=== PATIENT | female | born 1950 | race Caucasian/White ===

== ENCOUNTER 2017-08-16 07:37 | Day surgery (SDC) | payer OTHER, BC ==
[2017-08-10 12:27] VITALS: BMI 43.2
[2017-08-16] MEDS ORDERED: PROPOFOL 20 ML ONE (08:13)
[2017-08-16] MEDS ORDERED: MIDAZOLAM HCL 2 MG/2 ML SINGLE DOSE VIAL ONE (08:13)
[2017-08-16] MEDS ORDERED: ONDANSETRON 4 MG/2 ML VIAL IVPUSH PRN (09:15)
[2017-08-16] MEDS ORDERED: LACTATED RINGERS SOLUTION 1,000 ML IV SCH (09:15)
[2017-08-16] MEDS ORDERED: oxyCODONE HCL 5 MG TABLET PO PRN (09:15)
[2017-08-16 10:13] VITALS: TEMP 97.8
[2017-08-16] MEDS ORDERED: oxyCODONE HCL 5 MG TABLET ONE (10:17)
[2017-08-16 10:31] VITALS: PULSE 82
[2017-08-16 10:55] VITALS: BP 120/80
--- NOTE | 2017-08-19 10:46 | OP ---
DATE OF OPERATION: 08/16/2017 PREOPERATIVE DIAGNOSIS: Left carpal tunnel syndrome. POSTOPERATIVE DIAGNOSIS: Left carpal tunnel syndrome. OPERATIVE PROCEDURE: Left carpal tunnel release. ANESTHESIA: Local with sedation. COMPLICATIONS: None. ESTIMATED BLOOD LOSS: Minimal. INDICATIONS FOR PROCEDURE: The patient is a female with the above findings indicated for operative treatment. Risks, benefits, and alternatives were discussed with the patient at length. Proper informed consent was obtained. DESCRIPTION OF PROCEDURE: After proper identification of patient and correct operative site, the patient was brought to the operating room and placed supine on the operative table, prominences well padded. General anesthesia given by the anesthesiologist. Local anesthesia was given with 2% lidocaine. The left upper extremity was prepped and draped in the usual sterile fashion. A well-padded tourniquet was placed with a sterile prep. Esmarch bandage used to exsanguinate the right upper extremity. Tourniquet was inflated to 250 mmHg. Longitudinal incision was made over the carpal tunnel. Incision was taken sharply through the skin with sharp and blunt dissection through the subcutaneous tissues. Palmar fascia was divided longitudinally. Transcarpal ligament was divided longitudinally along with the distal 4 cm of antebrachial fascia under direct visualization with loupe magnification. This provided complete release of the median nerve at the wrist. The wound was irrigated with saline and repaired with a 5-0 nylon suture. Sterile dressings were applied. The patient was reversed from anesthesia and brought to the ambulatory recovery room in stable condition. She tolerated the procedure well. Pérez [id number]
== END 2017-08-16 11:00 | disposition home or self-care (01) ==
LOC: FASU 07:37
PROVIDERS: ATTEND Orthopaedic Surgery Hand Surgery
PROC: 01N50ZZ Release Median Nerve, Open Approach (ICD-10-PCS; principal; 2017-08-16 08:52)
DX: G56.02 Carpal tunnel syndrome, left upper limb (principal)
CPT/HCPCS: 94760

== ENCOUNTER 2017-11-30 21:36 | Inpatient (IN) | payer OTHER, BC ==
[2017-11-30 21:47] VITALS: BMI 43.2
--- NOTE | 2017-11-30 22:22 | PDOC ---
History of Present Illness - General Chief Complaint: Pain, Acute Stated Complaint: ABD PAIN Time Seen by Provider: 11/30/17 22:01 History Source: Patient Exam Limitations: No Limitations - History of Present Illness Initial Comments: This is a morbidly obese 67-year-old female comes in complaining of abdominal pain. Patient said she had multiple episodes of diarrhea yesterday and however today she's not had any diarrhea. Patient said she did not have a bowel movement today. Patient's complaining of lower abdominal pain. Patient denies any fevers chills, chest pain, shortness of breath or any other complaints. Patient has a history of an umbilical hernia that was repaired in the past. PAST MEDICAL HISTORY: no significant history PAST SURGICAL HISTORY: no significant history FAMILY HISTORY: no pertinant history SOCIAL HISTORY: Pt lives with family and is employed. MEDICATIONS: reviewed ALLERGIES: As per nursing notes Review of Systems General: fevers or chills, no weakness, no weight loss HEENT: No change in vision. No sore throat,. No ear pain CardioVascular: No chest pain or shortness of breath Respiratory:No cough, or wheezing. Gastrointestinal: no nausea, vomitting, +diarrhea or constipation, No rectal bleeding Genitourinary: No dysuria, hematuria, or frequency Musculoskeletal: No joint or muscle pain or swelling Neurologic: No headache, vertigo, dizziness or loss of consciousness Psychiatric: nor depression Skin: No rashes or easy bruising Endocrine: no increased thirst or abnormal weight change Allergic: no skin or latex allergy All other systems reviewed and normal Exam: General: Obese well-developed individual, no acute distress HEENT: Throat: Normal, tonsils normal, no erythema or exudate Neck: Supple, no meningeal signs, no lymphadenopathy Eyes::Pupils equal reactive and round, extraocular motion intact Chest: Nontender to palpation Cardiac: S1-S2 normal, regular rate and rhythm, no murmurs rubs or gallops Respiratory: Lungs clear to auscultation bilateral Abdomen: Soft, nondistended, increased bowel sounds, there is tenderness to palpation in the periumbilical area with a questionable palpable nonreducible hernia. Otherwise her abdomen is soft with normal bowel sounds and also some tenderness across lower abdomen and there is no guarding or rebound. Extremities: Warm, dry, no cyanosis, clubbing, or edema Skin: No rashes Neuro: Alert and oriented x3, CN II - XII intact, nonfocal exam with normal strength, normal sensation, normal reflexes, normal gait, Psych: Normal mood and affect Medical decision making: This is a 67-year-old obese female who comes in complaining of abdominal pain. Patient had tenderness across her lower abdomen on exam. Patient has history significant for surgery in the past and a hernia in the past. Patient did have some tenderness on palpation in the umbilical area There was nothing suggestive of peritonitis or perforation on my exam Will obtain workup including CBC, comp, lipase, CAT scan, EKG. We will medicate with some morphine and give IV fluids We will reassess and review workup once it is completely 00:40 Reassessment. Patient is feeling better Patient has normal white count Chemistries show Patient urine does show that she has a urinary tract infection will start her on antibiotics for the urinary tract infection CAT scan is still spinning 12/01/17 00:44 Chemistry shows some dehydration as well elevation of the glucose otherwise unremarkable 12/01/17 01:00 Patient still complaining of moderate amount of discomfort in spite of the morphine that she was given. Patient CAT scan shows that there is a incarcerated loop of bowel in a ventral periumbilical hernia. There is some questionable pneumatosis of the lumen versus small air bubbles along the wall of the lumen. Surgery will be consulted regarding whether patient needs emergent surgery tonight or can wait till tomorrow Patient's urine shows a urinary tract infection and I will also cover her for GI pathogens. Patient given Zosyn 4.5 g. Discussed admission with the hospitalist service as well as with surgeon Dr. Harrison. . Signout given to the admitting hospitalist, who accepts the patient. Discussed plan with the patient family at bedside, Patient and family aware of the plan and agree. Patient is clinically unchanged and stable. Past History - Past Medical History Allergies/Adverse Reactions: Allergies Allergy/AdvReac Type Severity Reaction Status Date / Time cephalexin monohydrate Allergy Severe Difficulty Verified 08/10/17 14:21 [From Keflex] Breathing iodine Allergy Severe Hives Verified 08/10/17 14:21 adhesive tape Allergy Mild Verified 08/10/17 14:21 codeine [Codeine] Allergy Mild Itching Verified 08/10/17 14:21 Home Medications: Ambulatory Orders Aspirin [Aspirin EC] 81 mg PO DAILY 08/10/17 Anemia: Yes (NO MEDS) Asthma: No Cancer: No Cardiac Disorders: No CVA: No COPD: Yes CHF: No Dementia: No Diabetes: Yes GI Disorders: Yes (LAP BAND COMPLICATIONS) Disorders: Yes HTN: No Hypercholesterolemia: (on lipitor because of metformin) Liver Disease: No Seizures: No Thyroid Disease: Yes (GRAVES) Other medical history: MORBIDLY OBESE - Surgical History Abdominal Surgery: Yes (NUMEROUS A RESULT OF LAP BAND COMPLICATIONS) Appendectomy: No Cardiac Surgery: No Cholecystectomy: Yes GI Surgery: Yes (DUODENAL ULCER SX) Lung Surgery: No Neurologic Surgery: No Orthopedic Surgery: Yes (LT KNEE ARTHROSCOPY x2, LT KNEE MENISCAL REPAIR) - Suicide/Smoking/Psychosocial Hx Smoking Status: Yes Smoking History: Unknown if ever smoked Have you smoked in the past 12 months: No Number of Cigarettes Smoked Daily: 10 If you are a former smoker, when did you quit?: 2005 Hx Alcohol Use: No Drug/Substance Use Hx: No Substance Use Type: None Hx Substance Use Treatment: No *Physical Exam - Vital Signs Last Vital Signs Temp Pulse Resp BP Pulse Ox 98 F 90 18 151/87 97 11/30/17 21:43 11/30/17 21:43 11/30/17 21:43 11/30/17 21:43 11/30/17 21:43 ED Treatment Course - LABORATORY CBC & Chemistry Diagram: 11/30/17 23:00 11/30/17 23:07 *DC/Admit/Observation/Transfer Diagnosis at time of Disposition: Incarcerated hernia of abdominal cavity - Discharge Dispostion Condition at time of disposition: Stable Admit: Yes - Referrals Referrals: Bobo Banda MD [Primary Care Provider] - - Patient Instructions - Post Discharge Activity
[2017-11-30 23:06] LABS: PH,URINE 5.5 (4.5-8); URINE APPEARANCE Clear; URINE BILIRUBIN 1+ (NEGATIVE); URINE GLUCOSE (UA) Negative (NEGATIVE); URINE KETONE Trace (NEGATIVE); URINE NITRITE Negative (NEGATIVE); URINE UROBILINOGEN 0.2 (0.2-1.0)
[2017-11-30 23:07] LABS: URINE BLOOD 3+ (NEGATIVE); URINE COLOR YELLOW; URINE PROTEIN 2+ (NEGATIVE)
[2017-11-30 23:14] LABS: URINE BACTERIA MODERATE /hpf (NEGATIVE); URINE WBC >100 (0-5)
[2017-11-30] MEDS ORDERED: morphine CARPU-JECT 4 MG/1 ML DISP.SYRIN IVPUSH ONE (23:14)
[2017-11-30] MEDS ORDERED: SODIUM CHLORIDE 1,000 ML IV ONE (23:16)
[2017-11-30 23:17] LABS: BASO % 0.6 % (0-2.0); HEMOGLOBIN 12.4 GM/dl (10.7-15.3); LYMPH % 14.1 % (8-40); MCH 25.2 pg (25.7-33.7); MCHC 31.7 g/dl (32.0-36.0); MEAN CELL VOLUME 79.4 fl (80-96); MEAN PLT VOLUME 8.7 fl (7.5-11.1); MONO % 7.7 % (3.8-10.2); NEUT % 75.6 % (42.8-82.8); PLATELET COUNT 224 K/MM3 (134-434); RBC 4.91 M/mm3 (3.60-5.2); WHITE BLOOD COUNT 9.5 K/mm3 (4.0-10.8)
[2017-11-30] MEDS ORDERED: morphine SULFATE 4 MG/ML VIAL ONE (23:21)
[2017-11-30 23:26] LABS: ALBUMIN 3.8 g/dl (3.5-5.0); ALK PHOS 85 U/L (32-92); ANION GAP 8 (8-16); BILIRUBIN,TOTAL 0.5 mg/dl (0.2-1.0); BLOOD UREA NITROGEN 20 mg/dl (7-18); CHLORIDE 105 mmol/L (98-107); CO2 25 mmol/L (22-28); CREATININE 0.8 mg/dl (0.6-1.3); GLUCOSE,RANDOM 121 mg/dl (74-106); LIPASE 27 U/L (22-51); POTASSIUM 3.8 mmol/L (3.5-5.1); SGOT/AST 16 U/L (10-42); SGPT/ALT 15 U/L (10-40); SODIUM 138 mmol/L (136-145)
[2017-12-01] MEDS ORDERED: PIPERACILLIN/TAZOB 4.5 GM/100 ML PREMIX BAG IVPB ONE ×2 (01:19→11:15)
[2017-12-01] MEDS ORDERED: PIPERACILLIN/TAZOBACTAM 4.5 GM VIAL IVPB ONE (01:19)
[2017-12-01] MEDS ORDERED: morphine CARPU-JECT 4 MG/1 ML DISP.SYRIN IVPUSH ONE ×2 (01:22→08:42)
[2017-12-01] MEDS ORDERED: morphine SULFATE 4 MG/ML VIAL ONE (01:23)
[2017-12-01] MEDS ORDERED: HYDROmorphone HCL CARPU-JECT 1 MG/1 ML DISP.SYRIN IVPUSH ONE (02:31)
[2017-12-01] MEDS ORDERED: HYDROmorphone HCL CARPU-JECT 2 MG/1 ML DISP.SYRIN ONE ×2 (02:36→07:02)
[2017-12-01] MEDS ORDERED: SODIUM CHLORIDE 1,000 ML IV SCH (02:45)
[2017-12-01] MEDS: NITROFURANTOIN MACROCRYSTAL 50 MG CAPSULE (FP) PO SCH ×2 (03:02→03:34)
[2017-12-01] MEDS: HYDROmorphone HCL CARPU-JECT 2 MG/1 ML DISP.SYRIN IVPUSH PRN ×2 (07:05→17:49)
[2017-12-01] MEDS ORDERED: TETRACAINE/BENZOCAINE/BUTAMBEN 20 GM SPR TP ONE (07:14)
[2017-12-01] MEDS ORDERED: MIDAZOLAM HCL 2 MG/2 ML SINGLE DOSE VIAL IVPUSH ONE (07:14)
[2017-12-01] MEDS ORDERED: LIDOCAINE VISCOUS 2% ORAL/TOP 20 ML UNIT-DOSE CUP MM ONE (07:14)
[2017-12-01] MEDS ORDERED: LIDOCAINE VISCOUS 2% ORAL/TOP 20 ML UNIT-DOSE CUP ONE (07:30)
[2017-12-01] MEDS ORDERED: HURRICAINE SP EXT TUBE 1 EA EACH TP ONE (07:40)
[2017-12-01 07:44] LABS: ANION GAP 5 (8-16); BLOOD UREA NITROGEN 18 mg/dl (7-18); CALCIUM 8.2 mg/dl (8.4-10.2); CHLORIDE 107 mmol/L (98-107); CO2 25 mmol/L (22-28); CREATININE 0.7 mg/dl (0.6-1.3); GLUCOSE,RANDOM 81 mg/dl (74-106); POTASSIUM 3.3 mmol/L (3.5-5.1); SODIUM 137 mmol/L (136-145)
[2017-12-01 07:54] LABS: ACTIVATED PTT 34.5 SECONDS (24.0-38.9)
[2017-12-01 07:58] LABS: INR 1.22 (0.82-1.09); PROTHROMBIN TIME (PATIENT) 13.6 SEC (10.2-13.0)
[2017-12-01 08:02] LABS: HEMATOCRIT 36.3 % (32.4-45.2); HEMOGLOBIN 11.2 GM/dl (10.7-15.3); MCH 24.5 pg (25.7-33.7); MCHC 30.9 g/dl (32.0-36.0); MEAN CELL VOLUME 79.4 fl (80-96); MEAN PLT VOLUME 9.4 fl (7.5-11.1); PLATELET COUNT 195 K/MM3 (134-434); RBC 4.57 M/mm3 (3.60-5.2); RDW 15.4 % (11.6-15.6); WHITE BLOOD COUNT 7.9 K/mm3 (4.0-10.8)
--- NOTE | 2017-12-01 08:06 | HP ---
CHIEF COMPLAINT: abdominal pain PCP: Dr Banda HISTORY OF PRESENT ILLNESS: Patient is a 67 y/o obese female with a past medical history of, anemia DM, hypertension, lap band removed 2011 with hernia repai (mesh), multiple abd surgeries requiring vac placement, and hyperlipidemia. Patient reports ongoing lower quadrant abdominal pain and diarrhea for 24 hours. Patient denies any fever. ER course was notable for: (1) ct of abd/pelvis: positive for a loop bowel entrapped in a ventral periumbilical hernia (2)wbc 9.5 (3) Dr Harrison general surgeon consulted by ED physician Recent Travel: none PAST MEDICAL HISTORY: see hpi PAST SURGICAL HISTORY: see hpi Social History: resides at home alone Smoking: none Alcohol:none Drugs: none Family History: non contributory to this admission Allergies cephalexin monohydrate [From Keflex] Allergy (Severe, Verified 08/10/17 14:21) Difficulty Breathing and hives iodine Allergy (Severe, Verified 08/10/17 14:21) Hives adhesive tape Allergy (Mild, Verified 08/10/17 14:21) blisters codeine [Codeine] Allergy (Mild, Verified 08/10/17 14:21) Itching and confusion HOME MEDICATIONS: Home Medications Medication Instructions Recorded Aspirin [Aspirin EC] 81 mg PO DAILY 08/10/17 REVIEW OF SYSTEMS CONSTITUTIONAL: Present: generalized weakness, malaise, loss of appetite Absent: fever, chills, diaphoresis, weight change HEENT: Absent: rhinorrhea, nasal congestion, throat pain, throat swelling, difficulty swallowing, mouth swelling, ear pain, eye pain, visual changes CARDIOVASCULAR: Absent: chest pain, syncope, palpitations, irregular heart rate, lightheadedness , peripheral edema RESPIRATORY: Absent: cough, shortness of breath, dyspnea with exertion, orthopnea, wheezing, stridor, hemoptysis GASTROINTESTINAL: Absent: abdominal pain, abdominal distension, nausea, vomiting, diarrhea, constipation, melena, hematochezia GENITOURINARY: Absent: dysuria, frequency, urgency, hesitancy, hematuria, flank pain, genital pain MUSCULOSKELETAL: Absent: myalgia, arthralgia, joint swelling, back pain, neck pain SKIN: Absent: rash, itching, pallor HEMATOLOGIC/IMMUNOLOGIC: Absent: easy bleeding, easy bruising, lymphadenopathy, frequent infections ENDOCRINE: Absent: unexplained weight gain, unexplained weight loss, heat intolerance, cold intolerance NEUROLOGIC: Absent: headache, focal weakness or paresthesias, dizziness, unsteady gait, seizure, mental status changes, bladder or bowel incontinence PSYCHIATRIC: Absent: anxiety, depression, suicidal or homicidal ideation, hallucinations. PHYSICAL EXAMINATION Vital Signs - 24 hr 11/30/17 12/01/17 12/01/17 21:43 02:34 06:38 Temperature 98 F 97.6 F Pulse Rate 90 Pulse Rate [ 76 86 Left Radial] Respiratory 18 18 19 Rate Blood Pressure 151/87 Blood Pressure 142/83 123/69 [Right] O2 Sat by Pulse 97 95 95 Oximetry (%) GENERAL: Awake, alert, and fully oriented, in no acute distress. HEAD: Normal with no signs of trauma. NGT scant bilious drainage EYES: Pupils equal, round and reactive to light, extraocular movements intact, sclera anicteric, conjunctiva clear. No lid lag. EARS, NOSE, THROAT: Ears normal, nares patent, oropharynx clear without exudates. Moist mucous membranes. NECK: Normal range of motion, supple without lymphadenopathy, JVD, or masses. LUNGS: Breath sounds equal, clear to auscultation bilaterally. No wheezes, and no crackles. No accessory muscle use. HEART: Regular rate and rhythm, normal S1 and S2 without murmur, rub or gallop. ABDOMEN: Soft, midline healed surgical scar, tender non reducible central hernia , diffuse abdominal tenderness, not distended, normoactive bowel sounds, no guarding, no rebound, no masses. No hepatomegaly or splenomegaly. MUSCULOSKELETAL: Normal range of motion at all joints. No bony deformities or tenderness. No CVA tenderness. UPPER EXTREMITIES: 2+ pulses, warm, well-perfused. No cyanosis. No clubbing. No peripheral edema. LOWER EXTREMITIES: 2+ pulses, warm, well-perfused. No calf tenderness. No peripheral edema. NEUROLOGICAL: Cranial nerves II-XII intact. Normal speech. Normal gait. PSYCHIATRIC: Cooperative. Good eye contact. Appropriate mood and affect. SKIN: Warm, dry, normal turgor, no rashes or lesions noted, normal capillary refill. Laboratory Results - last 24 hr 11/30/17 11/30/17 11/30/17 22:50 23:00 23:00 WBC 9.5 RBC 4.91 Hgb 12.4 Hct 39.0 MCV 79.4 L MCH 25.2 L MCHC 31.7 L RDW 16.0 H Plt Count 224 MPV 8.7 Neutrophils % 75.6 Lymphocytes % 14.1 Monocytes % 7.7 Eosinophils % 2.0 Basophils % 0.6 Sodium Potassium Chloride Carbon Dioxide Anion Gap BUN Creatinine Creat Clearance w eGFR POC Glucometer Random Glucose Calcium Total Bilirubin AST ALT Alkaline Phosphatase Creatine Kinase Troponin I < 0.03 L Total Protein Albumin Lipase Urine Color Yellow Urine Appearance Clear Urine pH 5.5 Ur Specific [place] >= 1.030 H Urine Protein 2+ H Urine Glucose (UA) Negative Urine Ketones Trace Urine Blood 3+ H Urine Nitrite Negative Urine Bilirubin 1+ H Urine Urobilinogen 0.2 Urine RBC 10-20 Urine WBC >100 Urine Bacteria Moderate 11/30/17 11/30/17 12/01/17 23:00 23:07 06:39 WBC RBC Hgb Hct MCV MCH MCHC RDW Plt Count MPV Neutrophils % Lymphocytes % Monocytes % Eosinophils % Basophils % Sodium 138 Potassium 3.8 Chloride 105 Carbon Dioxide 25 Anion Gap 8 BUN 20 H D Creatinine 0.8 Creat Clearance w eGFR > 60 POC Glucometer 98.16349 Random Glucose 121 H Calcium 9.0 Total Bilirubin 0.5 D AST 16 ALT 15 Alkaline Phosphatase 85 Creatine Kinase 29 Troponin I Total Protein 7.0 Albumin 3.8 Lipase 27 Urine Color Urine Appearance Urine pH Ur Specific [place] Urine Protein Urine Glucose (UA) Urine Ketones Urine Blood Urine Nitrite Urine Bilirubin Urine Urobilinogen Urine RBC Urine WBC Urine Bacteria 12/01/17 06:57 WBC RBC Hgb Hct MCV MCH MCHC RDW Plt Count MPV Neutrophils % Lymphocytes % Monocytes % Eosinophils % Basophils % Sodium 137 Potassium 3.3 L Chloride 107 Carbon Dioxide 25 Anion Gap 5 L BUN 18 Creatinine 0.7 Creat Clearance w eGFR POC Glucometer Random Glucose 81 D Calcium 8.2 L Total Bilirubin AST ALT Alkaline Phosphatase Creatine Kinase Troponin I Total Protein Albumin Lipase Urine Color Urine Appearance Urine pH Ur Specific [place] Urine Protein Urine Glucose (UA) Urine Ketones Urine Blood Urine Nitrite Urine Bilirubin Urine Urobilinogen Urine RBC Urine WBC Urine Bacteria ASSESSMENT/PLAN: F/E/N - npo pending OR today,ivf hypokalemia - kci 10meg iv x 1 ppx - hold ac pending or - protonix - scd patient is medially optimized for emergent surgery dispo: pt requires inpatient admission Problem List - Problem (1) Incarcerated ventral hernia Assessment/Plan: - ct of abd reviewed, Dr Harrison consulted by ED physician, plan for OR today - keep NPO, IVF and NGT Code(s): K46.0 - UNSP ABDOMINAL HERNIA WITH OBSTRUCTION, WITHOUT GANGRENE (2) Hypertension Assessment/Plan: - no home medications as per patient, slighty above goal, secondary to pain, strict monitoring Code(s): I10 - ESSENTIAL (PRIMARY) HYPERTENSION (3) Diabetes mellitus Assessment/Plan: - penidng OR today, hold home meds - pending hemoglobin a1c Code(s): E11.9 - TYPE 2 DIABETES MELLITUS WITHOUT COMPLICATIONS (4) Hyperlipidemia Assessment/Plan: - continue statin when patient is cleared for diet Code(s): E78.5 - HYPERLIPIDEMIA, UNSPECIFIED (5) Anemia Assessment/Plan: - hemoglobin 11 at baseline - strict monitoring repeat cbc postoperatively Code(s): D64.9 - ANEMIA, UNSPECIFIED (6) Urinary tract infection Assessment/Plan: - moderate bacterial noted on urine, pending culture, continue zosyn appreciate ID input for abx approval Code(s): N39.0 - URINARY TRACT INFECTION, SITE NOT SPECIFIED Visit type - Emergency Visit Emergency Visit: Yes ED Registration Date: 12/01/17 Care time: The patient presented to the Emergency Department on the above date and was hospitalized for further evaluation of their emergent condition. - New Patient This patient is new to me today: Yes Date on this admission: 12/01/17 - Critical Care Critical Care patient: No
[2017-12-01] MEDS ORDERED: MIDAZOLAM HCL 2 MG/2 ML SINGLE DOSE VIAL ONE ×2 (08:11→10:55)
[2017-12-01] MEDS ORDERED: morphine CARPU-JECT 2 MG/1 ML DISP.SYRIN ONE (08:43)
[2017-12-01] MEDS ORDERED: ONDANSETRON 4 MG/2 ML VIAL IVPUSH ONE (10:08)
[2017-12-01] MEDS ORDERED: SODIUM CHLORIDE 0.9%/KCL 20 MEQ/1,000 ML INFUS.BAG IV SCH ×2 (10:15→18:45)
[2017-12-01] MEDS ORDERED: KCL 10 MEQ IVPB 10 MEQ/100 ML INFUS.BAG IVPB SCH ×2 (10:15→17:30)
[2017-12-01] MEDS ORDERED: fentaNYL CITRATE 250 MCG/5 ML VIAL ONE (10:55)
[2017-12-01] MEDS ORDERED: PROPOFOL 20 ML ONE ×2 (10:55)
[2017-12-01] MEDS ORDERED: ROCURONIUM BROMIDE 50 MG/5 ML VIAL ONE (10:55)
--- NOTE | 2017-12-01 11:04 | PN ---
Progress Note (short form) - Note Progress Note: surgery pt seen and exmamined. full consult dictated. 67f morbidly obese, multiple previous surgeries for lap band and complications, mesh hernia repair, presents with abd pain and a lump at the central portion of her abd. ct shows incarcerated small bowel loop with proximal obstruction/fecalization inferior to previous mesh repair. wbc wnl and no fever. on exam abd is soft with an incarcerated mass below a large scar. no overlying skin changes and minimal tenderness Plan-chronically incarcerated ventral hernia now with partial obstuction. will proceed with urgent repair and may not be able to use permanent mesh due to possible contamination. will cont zosyn started in er.
[2017-12-01] MEDS ORDERED: BUPIVACAINE HCL/PF 0.5% (5MG/ML) 10 ML VIAL ONE (11:11)
[2017-12-01] MEDS ORDERED: ePHEDrine SULFATE 50 MG/1 ML AMPULE ONE (11:26)
[2017-12-01] MEDS ORDERED: LACTATED RINGERS SOLUTION 1,000 ML IV SCH (11:30)
[2017-12-01] MEDS ORDERED: BUPIVACAINE HCL/PF (5 MG/ML) 30 ML VIAL IJ ONE ×2 (11:30→11:43)
[2017-12-01] MEDS ORDERED: NEOSTIGMINE METHYLSULFATE 0.5 MG/ML - 10 ML MDV ONE (11:37)
[2017-12-01] MEDS ORDERED: GLYCOPYRROLATE 0.2 MG/1 ML VIAL ONE (11:38)
[2017-12-01] MEDS ORDERED: DEXAMETHASONE SOD PHOSPHATE 4 MG/1 ML VIAL IVPUSH ONE (11:43)
--- NOTE | 2017-12-01 12:12 | OP ---
Operative Note - Note: Operative Date: 12/01/17 Pre-Operative Diagnosis: incarcerated ventral hernia Operation: open repair incarcerated ventral hernia without mesh Findings: bowel containing ventral hernia, no compromise Surgeon: Anthony Harrison Uniformer: Lyndon Dey Anesthesia: General Specimens Removed: none Estimated Blood Loss (mls): 5 Drains & Tubes with Location: none Operative Report Dictated: Yes
--- NOTE | 2017-12-01 12:21 | CONS ---
DATE OF CONSULTATION: 12/01/2017 REASON FOR CONSULTATION: Incarcerated ventral hernia with possible bowel obstruction. REQUESTING PHYSICIAN: This is an emergency room consultation requested by the emergency room physician. BRIEF HISTORY: This is a 67-year-old female, morbidly obese, with multiple previous surgeries including a Lap-Band procedure with a second procedure due to complications including an ulcer. She states she has had a hernia repair before with mesh. She presents with severe abdominal pain, and a new lump located below the previous surgeries near the central portion of her abdomen. She had a CT scan of her abdomen and pelvis which showed an incarcerated ventral hernia containing a loop of small bowel with proximal fecalization suggesting obstruction. She was noted to have no fever. Her white blood cell count remained normal without a shift. Because of this incarcerated hernia, request was made for surgical evaluation. She denies nausea, denies vomiting. She denies pain radiating to her back. PAST MEDICAL HISTORY: Significant for peptic ulcer disease, anemia, COPD, diabetes, morbid obesity, and hyperthyroid disease. FAMILY HISTORY: Negative for malignancy in either family. ALLERGIES: To CEPHALEXIN, but she tolerated Zosyn without a problem last night. She also has allergies to IODINE, ADHESIVE TAPE, and CODEINE. HOME MEDICATIONS: Include aspirin. PAST SURGICAL HISTORY: As in HPI. In addition, she has had left knee surgery. REVIEW OF SYSTEMS: General: Denies fatigue or malaise. Cardiac: Denies chest pain or palpitations. Respiratory: Admits to some minimal shortness of breath. Gastrointestinal: No nausea, no vomiting, no diarrhea, no blood in her stool. She admits to a painful lump in her abdomen. She states that she did not want to come to the hospital, but because of the pain, it is the only reason why she came. Genitourinary: Denies dysuria. Musculoskeletal: Admits to arthritic pain. Psychiatric: Admits to being depressed that her grandson recently . PHYSICAL EXAMINATION: General: This is a morbidly obese 67-year-old female in no distress. Vital signs: She is afebrile. Her vital signs are stable. HEENT: Her head is normocephalic. Her sclerae are anicteric. Neck: Supple. Chest: Clear. Abdomen: Soft. She has a large midline scar going from her xiphoid towards the central portion of her abdomen. Below this scar is a tender lump consistent with an incarcerated ventral hernia seen on CT scan. There are no overlying skin changes. There are no feelings of crepitus. The lower abdomen has a significant pannus, but no signs of surgical scars. She has multiple laparoscopic scars above the mid portion of her abdomen. Extremities: Have edema. REVIEW OF LABORATORY DATA: White blood cell count is normal at 7.9. Her coagulation profile is normal. Her chemistries are unremarkable except for a mildly hypokalemic state with mildly low potassium. Her urinalysis appears to be significant with a urinary tract infection with moderate bacteria, 10-20 red blood cells, greater than 100 white blood cells. ASSESSMENT: This is a 67-year-old female with a painful lump at the central portion of her abdomen and CT scan evidence that this is an incarcerated ventral hernia containing a loop of small bowel with proximal fecalization. Clinically, this is likely a chronically incarcerated ventral hernia that now has become acutely obstructed. At this point, this is non-reducible, and patient will need an urgent surgical repair. Will make plans for surgery. Will continue Zosyn antibiotic to decrease possible contamination from the trapped bowel. Unlikely to use permanent mesh due to the active urinary tract infection as well as the possibility of translocation of the bacteria in the hernia sac. I will make the decision whether or not to use absorbable mesh or not at the time of surgery. Risks and benefits of the surgery have been explained to the patient in detail. These are including, but not limited to, the possibility of injury to bowel necessitating a bowel resection, the possibility of infection, the possibility of blood loss requiring blood transfusion, the possibility of a leak if the bowel is indeed repaired, the possibility of mesh infection especially the old mesh, the possibility of chronic pain, plus a multitude of medical risks including, but not limited to, cardiac, neurologic, pulmonary, and vascular complications, even . The patient understands these risks and is agreeable to surgery. DO ABHI GARRISON/[id number]
[2017-12-01] MEDS ORDERED: HYDROmorphone HCL CARPU-JECT 1 MG/1 ML DISP.SYRIN ONE (12:43)
[2017-12-01] MEDS ORDERED: HYDROmorphone HCL CARPU-JECT 2 MG/1 ML DISP.SYRIN IVPUSH ONE (12:45)
[2017-12-01] MEDS: HYDROmorphone HCL CARPU-JECT 1 MG/1 ML DISP.SYRIN IVPUSH ONE ×2 (12:45→13:00)
--- NOTE | 2017-12-01 15:44 | OP ---
DATE OF OPERATION: 12/01/2017 PREOPERATIVE DIAGNOSIS: Incarcerated ventral hernia. POSTOPERATIVE DIAGNOSIS: Incarcerated ventral hernia. PROCEDURE: Open primary repair of incarcerated ventral hernia. SURGEON: Anthony Harrison D.O. MANAGER PHYSICAL: Lyndon Dey M.D. ANESTHESIOLOGIST: Kamilah Lee M.D. (general) BLOOD LOSS: Minimal. DRAINS: None. COMPLICATIONS: None. SPECIMEN: None. INTRAOPERATIVE FINDINGS: There was bowel containing incarcerated ventral hernia. BRIEF HISTORY: This is a 67-year-old female with morbid obesity, multiple previous upper abdominal surgeries presents with incarcerated ventral hernia containing bowel and likely causing bowel obstruction. She presents now for urgent surgery. She was on Zosyn antibiotic prior to incision. DESCRIPTION OF PROCEDURE: The patient was placed in a supine position. General anesthesia was initiated. The abdomen was prepped and draped in sterile fashion. Next a vertical incision was made approximately 4 inches in length at the mid portion of her abdomen below the previous midline surgical scar. Scalpel was used to go through skin and subcutaneous tissue. Hernia sac was easily identified, dissected down to the fascia. The hernia sac was then opened showing obvious small bowel. The small bowel was not compromised. The hernia sac was then closed, and the hernia sac was reduced into the abdominal cavity and teased off the posterior fascia. Consideration was made toward running the small bowel, however there appeared to be dense adhesions to an upper mesh, and it was felt this was far more likely to cause injury, and the hernia was clearly the source of her obstruction. At this point , with the preperitoneal space created, decision was made to do a primary repair of the hernia and not involve mesh. This was because of possible translocation of bacteria from the bowel and because of an active urinary tract infection demonstrated on urinalysis. At this point the fascia was closed with multiple interrupted number 1 PDS sutures. The wound was irrigated and closed with diana, and Dermabond dressing was placed. Overall the patient tolerated procedure well with no complications. The patient's disposition was to go to the recovery room in stable condition, where she would await return of bowel function. Nasogastric was left in place which was placed prior to the operation. DO ABHI GARRISON/[id number] MTDD
[2017-12-01 16:18] LABS: URINE LEUK ESTERASE 2+ (NEGATIVE)
[2017-12-01] MEDS: PANTOPRAZOLE SODIUM 40 MG VIAL IVPUSH SCH (17:04)
[2017-12-01 17:56] LABS: WHITE BLOOD COUNT 9.9 K/mm3 (4.0-10.8)
[2017-12-01] MEDS ORDERED: SODIUM CHLORIDE 1,000 ML with POTASSIUM CHLORIDE 40 MEQ IV SCH (18:00)
[2017-12-01] MEDS ORDERED: PIPERACILLIN/TAZOB 3.375 GM 3.375 GM in DEXTROSE 5%-WATER - 50 ML IVPB SCH (18:00)
[2017-12-01 18:06] LABS: HEMATOCRIT 35.4 % (32.4-45.2); HEMOGLOBIN 11.5 GM/dl (10.7-15.3); MCH 25.7 pg (25.7-33.7); MCHC 32.4 g/dl (32.0-36.0); MEAN CELL VOLUME 79.4 fl (80-96); MEAN PLT VOLUME 9.3 fl (7.5-11.1); PLATELET COUNT 189 K/MM3 (134-434); RBC 4.46 M/mm3 (3.60-5.2); RDW 15.5 % (11.6-15.6)
[2017-12-01] MEDS: ONDANSETRON 4 MG/2 ML VIAL IVPB PRN (18:09)
[2017-12-01 18:27] LABS: ALBUMIN 3.7 g/dl (3.5-5.0); ALK PHOS 76 U/L (32-92); ANION GAP 5 (8-16); BILIRUBIN,TOTAL 0.3 mg/dl (0.2-1.0); BLOOD UREA NITROGEN 14 mg/dl (7-18); CALCIUM 8.5 mg/dl (8.4-10.2); CHLORIDE 106 mmol/L (98-107); CO2 24 mmol/L (22-28); CREATININE 0.6 mg/dl (0.6-1.3); GLUCOSE,RANDOM 178 mg/dl (74-106); MAGNESIUM 1.5 mg/dL (1.8-2.4); PHOSPHOROUS 3.5 mg/dl (2.5-4.6); POTASSIUM 4.3 mmol/L (3.5-5.1); SGOT/AST 15 U/L (10-42); SGPT/ALT 14 U/L (10-40); SODIUM 135 mmol/L (136-145); TOT PROT 6.8 g/dl (6.4-8.3)
[2017-12-01] MEDS ORDERED: MAGNESIUM SULFATE IN WATER 2 GM/50 ML IVPB IVPB ONE (18:33)
[2017-12-01] MEDS: PIPERACILLIN/TAZOB 3.375 GM 3.375 GM in DEXTROSE 5%-WATER - 100 ML IVPB SCH (18:54)
[2017-12-01] MEDS ORDERED: MAGNESIUM SULFATE 2 GM in SODIUM CHLORIDE 100 ML IVPB ONE (19:00)
[2017-12-01] MEDS ORDERED: MAGNESIUM SULF 50% (8.12 MEQ/2 ML-1 GM VIAL) IVPB ONE (19:30)
[2017-12-01 21:50] LABS: PLATELET ESTIMATE ADEQUATE
[2017-12-02] MEDS: HYDROmorphone HCL CARPU-JECT 2 MG/1 ML DISP.SYRIN IVPUSH PRN ×4 (02:00→21:53)
[2017-12-02] MEDS: PIPERACILLIN/TAZOB 3.375 GM 3.375 GM in DEXTROSE 5%-WATER - 100 ML IVPB SCH ×3 (02:02→17:09)
[2017-12-02] MEDS ORDERED: DEXTROSE 50%-WATER 25 GM/50 ML DISP.SYRIN ONE (06:19)
[2017-12-02] MEDS ORDERED: DEXTROSE 50%-WATER - 25 GM/50 ML VIAL IVPUSH ONE (06:32)
--- NOTE | 2017-12-02 06:46 | PN ---
Progress Note (short form) - Note Progress Note: surgery pt seen and examined. removed her ngt and refused my advice assuming risk of aspiration and prolonged ileus. Pt denies flatus. no pain or nausea. ambulating and voiding afebrile abd- soft, nt, nd, incision clean Plan- s/p repair of incarcerated ventral hernia and reduction of entrapped bowel trial of liquids. if tolerates consider discharge on full liquids until Monday. can advance at home. no abx or narcotics needed at discharge. ok to shower. ok to walk. ok to climb stairs. no lifting. will re-evaluate if unable to tolerate liquids. otherwise will follow in about 2 weeks. [phone]
[2017-12-02 08:07] LABS: BASO % 0.5 % (0-2.0); EOS % 0.9 % (0-4.5); HEMOGLOBIN 10.5 GM/dl (10.7-15.3); LYMPH % 16.3 % (8-40); MCH 24.7 pg (25.7-33.7); MCHC 30.9 g/dl (32.0-36.0); MEAN CELL VOLUME 79.9 fl (80-96); MEAN PLT VOLUME 8.4 fl (7.5-11.1); MONO % 7.9 % (3.8-10.2); NEUT % 74.4 % (42.8-82.8); PLATELET COUNT 216 K/MM3 (134-434); RBC 4.25 M/mm3 (3.60-5.2); RDW 15.6 % (11.6-15.6); WHITE BLOOD COUNT 10.4 K/mm3 (4.0-10.8)
[2017-12-02 08:22] LABS: ALBUMIN 3.5 g/dl (3.5-5.0); ALK PHOS 65 U/L (32-92); ANION GAP 8 (8-16); BILIRUBIN,TOTAL 0.4 mg/dl (0.2-1.0); BLOOD UREA NITROGEN 14 mg/dl (7-18); CALCIUM 8.5 mg/dl (8.4-10.2); CHLORIDE 105 mmol/L (98-107); CO2 24 mmol/L (22-28); CREATININE 0.7 mg/dl (0.6-1.3); GLUCOSE,RANDOM 63 mg/dl (74-106); MAGNESIUM 1.8 mg/dL (1.8-2.4); PHOSPHOROUS 3.6 mg/dl (2.5-4.6); POTASSIUM 3.7 mmol/L (3.5-5.1); SGOT/AST 15 U/L (10-42); SGPT/ALT 13 U/L (10-40); SODIUM 137 mmol/L (136-145); TOT PROT 6.4 g/dl (6.4-8.3)
--- NOTE | 2017-12-02 08:49 | PN ---
Progress Note (short form) - Note Progress Note: ID Consult dictated POD#1 repair incarcerated ventral hernia, reduction of entrapped bowel UTI Cephalosporin allergy Tolerating empiric zosyn Await urine c/s --> ? po levaquin
--- NOTE | 2017-12-02 09:15 | CONS ---
DATE OF CONSULTATION: HISTORY: The patient is a 67-year-old female who is evaluated for urinary tract infection. The patient presented to the hospital on November 30, 2017 with complaints of lower abdominal pain. She was found to have abdominal tenderness. CAT scan showed an incarcerated periumbilical hernia. The patient was taken to the operating room where repair of an incarcerated ventral hernia with reduction of entrapped bowel was performed. Her hospital course was complicated by pyuria. The patient complained of dysuria and urinary frequency. She was empirically treated with Zosyn for surgical prophylaxis and urinary tract infection. The patient has a history of cephalosporin allergy. She reports having a severe reaction to Keflex 30 years ago including tongue swelling and difficulty breathing. She has, however, tolerated Augmentin in the past. At the present time, she is awake and alert. She complains of some incisional discomfort and some urinary frequency. Dysuria has resolved. She has been afebrile with a normal white blood cell count. She has had previous hospital admissions. Denies history of resistant urinary tract pathogens. PAST MEDICAL HISTORY: Positive for morbid obesity, diabetes mellitus, hyperlipidemia. PAST SURGICAL HISTORY: History of abdominal hernia repair with mesh in the past. ALLERGIES: KEFLEX as noted, IODINE, CODEINE. HOME MEDICATIONS: Include Actos, Oxybutynin, omeprazole, Glucophage, meloxicam, Lipitor, aspirin. SOCIAL HISTORY: Lives at home. No active tobacco or alcohol use. SYSTEMS REVIEW: Neurologic: No loss of consciousness, seizure activity, focal weakness. Cardiac: Negative chest pain or palpitations. Respiratory: Negative cough or sputum production. Gastrointestinal: As per HPI. Genitourinary: As per HPI. LABORATORY DATA: White count 10.4, BUN 14, creatinine 0.6. Urinalysis greater than 100 white cells. Urine culture pending. PHYSICAL EXAMINATION: General: She is awake and alert. She is morbidly obese in no acute distress. Vital Signs: Temperature 98.1, blood pressure 113/54, pulse 83 and regular, respirations 18 per minute. HEENT: Sclerae anicteric. Heart: Sounds S1, S2. Lungs: Clear. Abdomen: Obese. There is a large midline surgical wound with diana in place. There is no erythema or wound drainage. There is incisional tenderness as well as suprapubic tenderness. Extremities: Positive for edema. IMPRESSION: 1. Postoperative day number 1 repair of incarcerated ventral hernia with reduction of entrapped bowel. 2. Urinary tract infection. 3. Major cephalosporin allergy. PLAN: The patient appears to be tolerating empiric Zosyn. Await urine culture results. Suggest switch to oral therapy once culture results are available. Antibiotic selection based on isolate and susceptibilities. Thank you for the kind referral. NAHUM PLEITEZ M.D. [id number]
[2017-12-02] MEDS: PANTOPRAZOLE SODIUM 40 MG VIAL IVPUSH SCH (09:39)
--- NOTE | 2017-12-02 10:15 | PN ---
Physical Exam: SUBJECTIVE: Patient seen and examined. Complains of pain at surgical site. OBJECTIVE: Vital Signs Period Temp Pulse Resp BP Sys/Gillette Pulse Ox Last 24 Hr 97.9 F-98.5 F 76-110 12-20 102-146/54-95 94-99 GENERAL: The patient is awake, alert, and fully oriented, in no acute distress. LUNGS: Breath sounds equal, clear to auscultation bilaterally, no wheezes, no crackles, no accessory muscle use. HEART: Regular rate and rhythm, S1, S2 ABDOMEN: obese; vertical surgical incision, diana and glue; edges well- approximated, no erythema, no exudate EXTREMITIES: 2+ pulses, warm, well-perfused, no edema. NEUROLOGICAL: Cranial nerves II through XII grossly intact. Normal speech, moves all extremites freely, able to sit, stand, lie down without assistance Laboratory Results - last 24 hr 11/30/17 12/01/17 12/01/17 22:50 09:25 17:25 WBC 9.9 RBC 4.46 Hgb 11.5 Hct 35.4 MCV 79.4 L MCH 25.7 MCHC 32.4 RDW 15.5 Plt Count 189 MPV 9.3 Neutrophils % No Result Required. Neutrophils % (Manual) 95.0 H* Band Neutrophils % 2.0 Lymphocytes % No Result Required. Lymphocytes % (Manual) 2.0 L Monocytes % Monocytes % (Manual) 1 L Eosinophils % Basophils % Platelet Estimate Adequate PTT (Actin FS) Sodium Potassium Chloride Carbon Dioxide Anion Gap BUN Creatinine Creat Clearance w eGFR POC Glucometer Random Glucose Lactic Acid 0.8 Calcium Phosphorus Magnesium Total Bilirubin AST ALT Alkaline Phosphatase Total Protein Albumin Ur Leukocyte Esterase 2+ H 12/01/17 12/01/17 12/01/17 17:25 18:06 22:23 WBC RBC Hgb Hct MCV MCH MCHC RDW Plt Count MPV Neutrophils % Neutrophils % (Manual) Band Neutrophils % Lymphocytes % Lymphocytes % (Manual) Monocytes % Monocytes % (Manual) Eosinophils % Basophils % Platelet Estimate PTT (Actin FS) Sodium 135 L Potassium 4.3 D Chloride 106 Carbon Dioxide 24 Anion Gap 5 L BUN 14 D Creatinine 0.6 Creat Clearance w eGFR > 60 POC Glucometer 163 100 Random Glucose 178 H D Lactic Acid Calcium 8.5 Phosphorus 3.5 Magnesium 1.5 L Total Bilirubin 0.3 D AST 15 ALT 14 Alkaline Phosphatase 76 Total Protein 6.8 Albumin 3.7 Ur Leukocyte Esterase 12/02/17 12/02/17 12/02/17 06:52 07:22 07:56 WBC 10.4 RBC 4.25 Hgb 10.5 L Hct 34.0 MCV 79.9 L MCH 24.7 L MCHC 30.9 L RDW 15.6 Plt Count 216 MPV 8.4 Neutrophils % 74.4 Neutrophils % (Manual) Band Neutrophils % Lymphocytes % 16.3 Lymphocytes % (Manual) Monocytes % 7.9 Monocytes % (Manual) Eosinophils % 0.9 Basophils % 0.5 Platelet Estimate PTT (Actin FS) Sodium Potassium Chloride Carbon Dioxide Anion Gap BUN Creatinine Creat Clearance w eGFR POC Glucometer 60 53 Random Glucose Lactic Acid Calcium Phosphorus Magnesium Total Bilirubin AST ALT Alkaline Phosphatase Total Protein Albumin Ur Leukocyte Esterase 12/02/17 12/02/17 07:56 07:56 WBC RBC Hgb Hct MCV MCH MCHC RDW Plt Count MPV Neutrophils % Neutrophils % (Manual) Band Neutrophils % Lymphocytes % Lymphocytes % (Manual) Monocytes % Monocytes % (Manual) Eosinophils % Basophils % Platelet Estimate PTT (Actin FS) 31.5 Sodium 137 Potassium 3.7 Chloride 105 Carbon Dioxide 24 Anion Gap 8 BUN 14 Creatinine 0.7 Creat Clearance w eGFR > 60 POC Glucometer Random Glucose 63 L D Lactic Acid Calcium 8.5 Phosphorus 3.6 Magnesium 1.8 Total Bilirubin 0.4 D AST 15 ALT 13 Alkaline Phosphatase 65 Total Protein 6.4 Albumin 3.5 Ur Leukocyte Esterase Active Medications Generic Name Dose Route Start Last Admin Trade Name Freq PRN Reason Stop Dose Admin Hydromorphone HCl 2 mg 12/01/17 02:37 12/02/17 07:35 Dilaudid Injection - IVPUSH 2 mg Q4H PRN Administration PAIN LEVEL 6-10 Lactated Ringer's 1,000 mls @ 125 mls/hr 12/01/17 11:30 12/01/17 17:03 Lactated Ringers Solution IV Not Given ASDIR JOSIAH Piperacillin Sod/Tazobactam 100 mls @ 200 mls/hr 12/01/17 18:00 12/02/17 02: 02 Sod 3.375 gm/ Dextrose IVPB 200 mls/hr Q8H-IV JOSIAH Administration Protocol Potassium Chloride/Sodium Chloride 20 meq in 1,000 mls @ 125 mls/hr 12/01/17 18:45 12/01/17 18:54 Ns+20 Meq Kcl - IV 125 mls/hr ASDIR JOSIAH Administration Ondansetron HCl 4 mg 12/01/17 10:10 12/01/17 18:09 Zofran Injection IVPB 4 mg TID PRN Administration NAUSEA Pantoprazole Sodium 40 mg 12/01/17 11:30 12/02/17 09:39 Protonix Iv IVPUSH 40 mg DAILY JOSIAH Administration ASSESSMENT/PLAN 67 year-old female with a PMH significant for HTN, HLD, NIDDM, and multiple abdominal surgeries. Admitted for incarcerated ventral hernia. Incarcerated ventral hernia s/p open repair and reduction of entrapped bowel --POD #1 --continue Zosyn as surgical madi-operative prophylaxis Urinary tract infection --pyuria >100WBCs --initial culture contaminated --repeat UA & UC ordered --continue empiric Zosyn Hypertension --BP stable --on no meds Hyperlipidemia --on no meds NIDDM --Novolog sliding scale coverage FEN Fluids: PO intake adequate Electrolytes: replete as indicated Nutrition: full liquid diabetic DVT prophylaxis: subq heparin, oob, ambulation Physical therapy Dispo: continues to require inapatient care. Full code. Visit type - Emergency Visit Emergency Visit: Yes ED Registration Date: 12/01/17 Care time: The patient presented to the Emergency Department on the above date and was hospitalized for further evaluation of their emergent condition. - New Patient This patient is new to me today: Yes Date on this admission: 12/02/17 - Critical Care Critical Care patient: No
[2017-12-02] MEDS: INSULIN (NOVOLOG) ASPART 100 UNITS/ML 10ML VIAL SQ SCH ×3 (11:00→22:20)
--- NOTE | 2017-12-02 11:00 | HOSP ---
Subjective - Review of Symptoms Events since last encounter: Asked to speak with patient's son. Son stated today is the for his seven -week old son. He stated he wanted the hospital to arrange for an ambulance to transport his mother to the . He stated that the hospital was preventing his mother from attending the . I spoke with the patient. Patient stated she is estranged from her son. She said she had not seen him in years and that she has never seen her 13 year-old granddaughter, nor the seven-week old infant. She said her son wants her to go to the but she does not feel she is well enough to go. She feels obligated to go, but is very concerned about her health. I advised the patient that she was not cleared medically for discharge. I advised her she is still being treated with IV antibiotics for a urinary tract infection. I advised her that if she left she risked worsening infection, wound dehiscence, bleeding, and . Patient expressed understanding. Patient asked if I would speak to her sister. Patient telephoned her sister and put me on speaker phone. I identified myself and sister identified herself as Jo Ann Strickland. I repeated to Ms. Strickland that the patient was not cleared for discharge. I advised her that if the patient left she risked worsening infection, wound dehiscence, bleeding, and . Ms. Strickland said she understood. Physical Examination Vital Signs: Vital Signs Temperature 98.1 F 12/02/17 06:00 Pulse Rate 83 12/02/17 06:00 Respiratory Rate 18 12/02/17 06:00 Blood Pressure 113/54 12/02/17 06:00 O2 Sat by Pulse Oximetry (%) 95 12/02/17 07:27 Labs: CBC, BMP 12/02/17 07:56 12/02/17 07:56
--- NOTE | 2017-12-02 12:22 | EKG ---
Test Reason : Blood Pressure : / mmHG Vent. Rate : 084 BPM Atrial Rate : 084 BPM P-R Int : 134 ms QRS Dur : 100 ms QT Int : 394 ms P-R-T Axes : 000 026 025 degrees QTc Int : 465 ms NORMAL SINUS RHYTHM INCOMPLETE RIGHT BUNDLE BRANCH BLOCK NONSPECIFIC ST AND T WAVE ABNORMALITY ABNORMAL ECG NO PREVIOUS ECGS AVAILABLE Confirmed by MD JARED, SHARON ([id number]) on 12/02/2017 12:22:18 PM Referred By: DR CASAREZ Confirmed By:SHARON COLEMAN MD
[2017-12-02 18:48] LABS: PH,URINE 5.5 (4.5-8); URINE APPEARANCE Slightly; URINE BILIRUBIN Negative (NEGATIVE); URINE GLUCOSE (UA) Negative (NEGATIVE); URINE KETONE Trace (NEGATIVE); URINE NITRITE Negative (NEGATIVE); URINE UROBILINOGEN 0.2 (0.2-1.0)
[2017-12-02 18:50] LABS: URINE BLOOD 2+ (NEGATIVE); URINE COLOR YELLOW; URINE LEUK ESTERASE 3+ (NEGATIVE); URINE PROTEIN 1+ (NEGATIVE)
[2017-12-02 19:12] LABS: CALCIUM OXALATE CRYSTALS FEW /hpf (NONE SEEN); URINE MUCUS 1+; URINE WBC >100 (0-5)
[2017-12-02] MEDS: ATORVASTATIN CA 10 MG TABLET (FP) PO SCH (21:33)
[2017-12-03] MEDS: PIPERACILLIN/TAZOB 3.375 GM 3.375 GM in DEXTROSE 5%-WATER - 100 ML IVPB SCH (01:29)
[2017-12-03] MEDS: HYDROmorphone HCL CARPU-JECT 2 MG/1 ML DISP.SYRIN IVPUSH PRN ×3 (02:13→10:35)
[2017-12-03] MEDS: ONDANSETRON 4 MG/2 ML VIAL IVPB PRN ×2 (02:13→05:50)
[2017-12-03] MEDS: INSULIN (NOVOLOG) ASPART 100 UNITS/ML 10ML VIAL SQ SCH (06:16)
[2017-12-03] MEDS ORDERED: PT OWN MED DRAWER 7, Y5N ONE (06:18)
[2017-12-03] MEDS: LEVOTHYROXINE NA 200 MCG TABLET PO SCH (06:19)
--- NOTE | 2017-12-03 09:09 | PN ---
Physical Exam: SUBJECTIVE: Patient seen and examined. States she cannot go home because she cannot take care of herself. OBJECTIVE: Vital Signs Period Temp Pulse Resp BP Sys/Gillette Pulse Ox Last 24 Hr 97.6 F-98.2 F 72-76 19-19 117-124/57-74 91-96 GENERAL: The patient is awake, alert, and fully oriented, in no acute distress. LUNGS: Breath sounds equal, clear to auscultation bilaterally, no wheezes, no crackles, no accessory muscle use. HEART: Regular rate and rhythm, S1, S2 ABDOMEN: obese; vertical surgical incision, diana and glue; edges well- approximated, no erythema, no exudate EXTREMITIES: 2+ pulses, warm, well-perfused, no edema. NEUROLOGICAL: Cranial nerves II through XII grossly intact. Normal speech, moves all extremites freely, able to sit, stand, lie down without assistance Laboratory Results - last 24 hr 12/02/17 12/02/17 12/02/17 07:56 12:00 18:35 POC Glucometer 80 Urine Color Yellow Urine Appearance Slightly Urine pH 5.5 Ur Specific [place] >= 1.030 H Urine Protein 1+ H Urine Glucose (UA) Negative Urine Ketones Trace Urine Blood 2+ H Urine Nitrite Negative Urine Bilirubin Negative Urine Urobilinogen 0.2 Ur Leukocyte Esterase 3+ H Urine RBC 5-10 Urine WBC >100 Ur Epithelial Cells 3-5 Calcium Oxalate Crystal Few Urine Mucus 1+ Blood Type B POSITIVE Antibody Screen Negative 12/02/17 12/02/17 12/03/17 21:24 23:56 05:43 POC Glucometer 68 101 50 Urine Color Urine Appearance Urine pH Ur Specific [place] Urine Protein Urine Glucose (UA) Urine Ketones Urine Blood Urine Nitrite Urine Bilirubin Urine Urobilinogen Ur Leukocyte Esterase Urine RBC Urine WBC Ur Epithelial Cells Calcium Oxalate Crystal Urine Mucus Blood Type Antibody Screen Current Medications Generic Name Dose Route Start Last Admin Trade Name Freq PRN Reason Stop Dose Admin Aspirin 81 mg 12/03/17 10:00 12/03/17 10:39 Ecotrin - PO 81 mg DAILY JOSIAH Administration Atorvastatin Calcium 10 mg 12/02/17 22:00 12/02/17 21:33 Lipitor - PO 10 mg HS JOSIAH Administration Diphenhydramine HCl 12.5 mg 12/02/17 22:55 12/03/17 02:13 Benadryl Injection - IVPUSH 12.5 mg Q8H PRN Administration ITCHINESS Hydromorphone HCl 2 mg 12/01/17 02:37 12/03/17 10:35 Dilaudid Injection - IVPUSH 2 mg Q4H PRN Administration PAIN LEVEL 6-10 Insulin Aspart 0 units 12/02/17 11:00 12/03/17 06:16 Novolog Vial SQ Not Given ACHS [facility] Protocol Levofloxacin 500 mg 12/03/17 10:45 12/03/17 11:19 Levaquin - PO 500 mg DAILY JOSIAH Administration Levothyroxine Sodium 200 mcg 12/03/17 07:00 12/03/17 06:19 Synthroid - PO 200 mcg ACBK JOSIAH Administration Montelukast Sodium 10 mg 12/03/17 10:00 12/03/17 11:19 Singulair - PO 10 mg DAILY JOSIAH Administration Ondansetron HCl 4 mg 12/01/17 10:10 12/03/17 05:50 Zofran Injection IVPB 4 mg TID PRN Administration NAUSEA Pantoprazole Sodium 40 mg 12/01/17 11:30 12/03/17 10:40 Protonix Iv IVPUSH 40 mg DAILY JOSIAH Administration ASSESSMENT/PLAN 67 year-old female with a PMH significant for HTN, HLD, NIDDM, and multiple abdominal surgeries. Admitted for incarcerated ventral hernia. Incarcerated ventral hernia s/p open repair and reduction of entrapped bowel --POD #2 --titrating down dilaudid dosage; consider switching to PO pain meds tomorrow Urinary tract infection --pyuria >100WBCs --switch to Levaquin 500mg po qd x 7d Hypertension --BP stable --on no meds Hyperlipidemia --on no meds NIDDM --one episode of hypoglycemia --Novolog sliding scale coverage FEN Fluids: PO intake adequate Electrolytes: replete as indicated Nutrition: full liquid diabetic DVT prophylaxis: subq heparin, oob, ambulation Physical therapy Dispo: continues to require inapatient care. Patient averse to going home, explore sub acute placement. Full code. Visit type - Emergency Visit Emergency Visit: Yes ED Registration Date: 12/01/17 Care time: The patient presented to the Emergency Department on the above date and was hospitalized for further evaluation of their emergent condition. - New Patient This patient is new to me today: No - Critical Care Critical Care patient: No
--- NOTE | 2017-12-03 10:29 | PN ---
Progress Note, Physician History of Present Illness: C/O incisional discomfort No c/o dysuria/ frequency/ urgency No c/o F/C Afebrile WBC WNL - Current Medication List Current Medications: Active Medications Aspirin (Ecotrin -) 81 mg PO DAILY [facility] Atorvastatin Calcium (Lipitor -) 10 mg PO HS [facility] Last Admin: 12/02/17 21:33 Dose: 10 mg Diphenhydramine HCl (Benadryl Injection -) 12.5 mg IVPUSH Q8H PRN PRN Reason: ITCHINESS Last Admin: 12/03/17 02:13 Dose: 12.5 mg Hydromorphone HCl (Dilaudid Injection -) 2 mg IVPUSH Q4H PRN PRN Reason: PAIN LEVEL 6-10 Last Admin: 12/03/17 05:50 Dose: 2 mg Piperacillin Sod/Tazobactam (Sod 3.375 gm/ Dextrose) 100 mls @ 200 mls/hr IVPB Q8H-IV JOSIAH PRN Reason: Protocol Last Admin: 12/03/17 01:29 Dose: 200 mls/hr Insulin Aspart (Novolog Vial) 0 units SQ ACHS JOSIAH PRN Reason: Protocol Last Admin: 12/03/17 06:16 Dose: Not Given Levothyroxine Sodium (Synthroid -) 200 mcg PO ACBK [facility] Last Admin: 12/03/17 06:19 Dose: 200 mcg Montelukast Sodium (Singulair -) 10 mg PO DAILY [facility] Ondansetron HCl (Zofran Injection) 4 mg IVPB TID PRN PRN Reason: NAUSEA Last Admin: 12/03/17 05:50 Dose: 4 mg Pantoprazole Sodium (Protonix Iv) 40 mg IVPUSH DAILY [facility] Last Admin: 12/02/17 09:39 Dose: 40 mg - Objective Vital Signs: Vital Signs Temperature 98.2 F 12/03/17 05:00 Pulse Rate 72 12/03/17 05:00 Respiratory Rate 19 12/03/17 08:36 Blood Pressure 121/57 12/03/17 05:00 O2 Sat by Pulse Oximetry (%) 95 12/03/17 08:36 Constitutional: Yes: No Distress, Obese Eyes: Yes: Conjunctiva Clear Cardiovascular: Yes: Regular Rate and Rhythm, S1, S2 Respiratory: Yes: CTA Bilaterally Gastrointestinal: Yes: Normal Bowel Sounds, Soft, Abdomen, Obese, Other ( Surgical wound with diana in place. No erythema/ drainage.). No: Tenderness Labs: CBC, BMP 12/02/17 07:56 12/02/17 07:56 INR, PTT INR 1.22 (0.82-1.09) 12/01/17 06:57 Assessment/Plan POD #2 repair of ventral hernia UTI Cephalosporin allergy Substitute po levaquin 500mg po qd x 7d
[2017-12-03] MEDS: ASPIRIN COATED 81 MG TABLET.EC PO SCH (10:39)
[2017-12-03] MEDS: PANTOPRAZOLE SODIUM 40 MG VIAL IVPUSH SCH (10:40)
[2017-12-03] MEDS: MONTELUKAST NA 10 MG TABLET PO SCH (11:19)
[2017-12-03] MEDS: LEVOFLOXACIN 500 MG TABLET (FP) PO SCH (11:19)
[2017-12-03] MEDS ORDERED: HYDROmorphone HCL CARPU-JECT 2 MG/1 ML DISP.SYRIN IVPUSH PRN (18:02)
[2017-12-03] MEDS: ATORVASTATIN CA 10 MG TABLET (FP) PO SCH (21:08)
[2017-12-04] MEDS: HYDROmorphone HCL CARPU-JECT 2 MG/1 ML DISP.SYRIN IVPB PRN ×2 (02:27→06:04)
[2017-12-04] MEDS: INSULIN (NOVOLOG) ASPART 100 UNITS/ML 10ML VIAL SQ SCH ×3 (04:36→11:30)
[2017-12-04] MEDS ORDERED: HYDROmorphone HCL CARPU-JECT 1 MG/1 ML DISP.SYRIN ONE (05:32)
[2017-12-04 05:55] VITALS: BP 136/65; PULSE 92
[2017-12-04] MEDS: LEVOTHYROXINE NA 200 MCG TABLET PO SCH (06:22)
[2017-12-04] MEDS ORDERED: oxyCODONE HCL 5 MG TABLET PO PRN (08:31)
--- NOTE | 2017-12-04 08:31 | DS ---
Physical Exam: SUBJECTIVE: Patient seen and examined, ambulatory at bedside with a cane, patient is tolerating meals OBJECTIVE:Patient is a 67 y/o obese female with a past medical history of, anemia DM, hypertension, lap band removed 2011 with hernia repai (mesh), multiple abd surgeries requiring vac placement, and hyperlipidemia. Patient reports ongoing lower quadrant abdominal pain and diarrhea for 24 hours. Patient denies any fever. ER course was notable for: (1) ct of abd/pelvis: positive for a loop bowel entrapped in a ventral periumbilical hernia (2)wbc 9.5 (3) Dr Harrison general surgeon consulted by ED physician Vital Signs Period Temp Pulse Resp BP Sys/Gillette Pulse Ox Last 24 Hr 98.2 F-98.8 F 78-94 18-19 113-136/51-88 90-95 PHYSICAL EXAM GENERAL: The patient is awake, alert, and fully oriented, in no acute distress. HEAD: Normal with no signs of trauma. EYES: PERRL, extraocular movements intact, sclera anicteric, conjunctiva clear. ENT: Ears normal, nares patent, oropharynx clear without exudates, moist mucous membranes. NECK: Trachea midline, full range of motion, supple. LUNGS: Breath sounds equal, clear to auscultation bilaterally, no wheezes, no crackles, no accessory muscle use. HEART: Regular rate and rhythm, S1, S2 without murmur, rub or gallop. ABDOMEN: Soft, diana to lower midline of abdomen, midline, no erythema, point tenderness noted, nondistended, normoactive bowel sounds, no guarding, no rebound, no hepatosplenomegaly, no masses. EXTREMITIES: 2+ pulses, warm, well-perfused, no edema. NEUROLOGICAL: Cranial nerves II through XII grossly intact. Normal speech, gait not observed. PSYCH: Normal mood, normal affect. SKIN: Warm, dry, normal turgor, no rashes or lesions noted. LABS Laboratory Results - last 24 hr 11/30/17 12/03/17 12/03/17 22:50 17:15 20:55 POC Glucometer 116 188 Urine RBC Cancelled Urine WBC Cancelled Ur Epithelial Cells Cancelled Urine Crystals Cancelled Calcium Oxalate Crystal Cancelled Uric Acid Crystals Cancelled Triple Phos Crystals Cancelled Amorphous Phosphates Cancelled Amorphous Urates Cancelled Amorphous Sediment Cancelled Urine Bacteria Cancelled Urine Casts Cancelled Hyaline Casts Cancelled Granular Casts Cancelled Waxy Casts Cancelled RBC Casts Cancelled WBC Casts Cancelled Urine Mucus Cancelled Urine Other Cancelled Urine Trichomonas Cancelled Urine Yeast Cancelled 12/04/17 05:11 POC Glucometer 149 Urine RBC Urine WBC Ur Epithelial Cells Urine Crystals Calcium Oxalate Crystal Uric Acid Crystals Triple Phos Crystals Amorphous Phosphates Amorphous Urates Amorphous Sediment Urine Bacteria Urine Casts Hyaline Casts Granular Casts Waxy Casts RBC Casts WBC Casts Urine Mucus Urine Other Urine Trichomonas Urine Yeast IMAGING: ct of abd/pelvis: positive for a loop bowel entrapped in a ventral periumbilical hernia HOSPITAL COURSE: Patient was admitted from the emergency department for Incarcerated ventral hernia s/p open repair and reduction of entrapped bowel, 12/01/17, Dr Harrison. Patient ambulated the hallway first post operative day. Patient is tolerating high fiber diet. Urinaylsis was notable for leukocytosis, patient was treated with zosyn and transitioned to levaquin. Dr Khan, infectious disease was consulted and followed. Patient has past medical history of hypertension, blood pressure remained at goal, home medications was continued. Patient was placed on fingersticks with regular insulin sliding scale throughout admission. PLAN - discharge home with VNS - continue levaquin for the next 7 days - strict follow up with Dr Harrison within 1 week Date of Admission:12/01/17 Date of Discharge: 12/04/17 Minutes to complete discharge: 45 Discharge Summary Reason For Visit: INCARCERATED HERNIA Current Active Problems Anemia (Acute) Diabetes mellitus (Acute) Hyperlipidemia (Acute) Hypertension (Acute) Incarcerated hernia of abdominal cavity (Acute) Incarcerated ventral hernia (Acute) Urinary tract infection (Acute) Condition: Stable - Instructions Referrals: Bobo Banda MD [Primary Care Provider] - - Home Medications Comprehensive Discharge Medication List: Ambulatory Orders Aspirin [Aspirin EC] 81 mg PO DAILY 08/10/17 Problem List - Problems (1) Incarcerated ventral hernia Code(s): K46.0 - UNSP ABDOMINAL HERNIA WITH OBSTRUCTION, WITHOUT GANGRENE (2) Hypertension Code(s): I10 - ESSENTIAL (PRIMARY) HYPERTENSION (3) Diabetes mellitus Code(s): E11.9 - TYPE 2 DIABETES MELLITUS WITHOUT COMPLICATIONS (4) Hyperlipidemia Code(s): E78.5 - HYPERLIPIDEMIA, UNSPECIFIED (5) Anemia Code(s): D64.9 - ANEMIA, UNSPECIFIED (6) Urinary tract infection Code(s): N39.0 - URINARY TRACT INFECTION, SITE NOT SPECIFIED This patient is new to me today: No Emergency Visit: Yes ED Registration Date: 12/01/17 Care time: The patient presented to the Emergency Department on the above date and was hospitalized for further evaluation of their emergent condition. Critical Care patient: No - Discharge Referral Referred to [facility] Med P.C.: No
[2017-12-04] MEDS: ASPIRIN COATED 81 MG TABLET.EC PO SCH (09:00)
[2017-12-04] MEDS: LEVOFLOXACIN 500 MG TABLET (FP) PO SCH (09:01)
[2017-12-04] MEDS: MONTELUKAST NA 10 MG TABLET PO SCH (09:01)
[2017-12-04] MEDS ORDERED: PANTOPRAZOLE 40 MG TABLET (FP) PO SCH (10:00)
[2017-12-04 11:33] VITALS: TEMP 98.6
[2017-12-05] MEDS ORDERED: LEVOTHYROXINE NA 100 MCG TABLET (FP) PO SCH (07:00)
== END 2017-12-04 12:57 | disposition home health service (06) | DRG 354 ==
LOC: FER 21:36 → FM/S 12-01 10:36
PROVIDERS: ADMIT Internal Medicine; ATTEND Nurse Practitioner Family
PROC: 0WQF0ZZ Repair Abdominal Wall, Open Approach (ICD-10-PCS; principal; 2017-12-01 11:25)
DX: K43.6 Other and unspecified ventral hernia with obstruction, without gangrene (principal); Z68.41 Body mass index [BMI] 40.0-44.9, adult; N39.0 Urinary tract infection, site not specified; E66.01 Morbid (severe) obesity due to excess calories; E86.0 Dehydration; I10 Essential (primary) hypertension; E11.9 Type 2 diabetes mellitus without complications; E78.5 Hyperlipidemia, unspecified; E87.6 Hypokalemia; D64.9 Anemia, unspecified
CPT/HCPCS: 36415; 71045-TC; 74176-TC; 80048; 80053; 81003; 81015; 82550; 82962; 83605; 83690; 83735; 84100; 84484; 85025; 85027; 85610; 85730; 86850; 86900; 86901; 87086; 93005; 94760; 97116-GP; 97161-GP; 99285-25

== ENCOUNTER 2018-02-09 20:02 | Inpatient (IN) | payer OTHER, BC ==
--- NOTE | 2018-02-09 20:10 | PDOC ---
History of Present Illness - General History Source: Patient, Family (daughter) Exam Limitations: No Limitations - History of Present Illness Initial Comments: 02/09/18 20:26 The patient is a 67 year old female with a past significant medical history of diabetes and hyperthyroidism, who presents to the emergency department with left sided facial droop and mild slurred speech at 14:00 today. The patient is accompanied by daughter, who reports that the patient's speech was slurred when she picked up her mother. The daughter notes that the patient's speech has improved since arrival to the emergency department. She denies experiencing similar symptoms in the past. She denies any chest pain, shortness of breath, visual changes, or loss of consciousness. She denies any headache. <Evita Gipson - Last Filed: 02/09/18 21:05> - General History Source: Patient Exam Limitations: No Limitations - History of Present Illness Initial Comments: A portion of this note was documented by scribe services under my direction. I have reviewed the details of the note, within reason, and agree with the documentation. The case summary and management plan written by me. 02/09/18 20:48 This is a 67-year-old female who comes in probably 5 hours after acute onset of some sores speech and left facial droop. Patient's symptoms have improved somewhat over the course of the last 5 hours. We will obtain a workup for CVA, TIA We will send a CBC, comp, cardiac enzymes, PT, INR obtain a head CT, EKG, chest x-ray We'll consult neurology Dr. Coulter We'll follow-up and reassess 21:[address] was negative for any acute pathology. Patient's workup is still pending Discussed head CT and patient's clinical findings with Dr. Coulter neurology. NIH stroke scale is 3 Dr. Coulter recommends that we admit the patient to an observation telemetry bed for TIA rule out CVA 23:00 Patient's workup is complete EKG shows normal sinus rhythm with a incomplete right bundle-branch block but no acute ST-T wave changes Chest x-ray is negative for any acute pathology Blood work is unremarkable for any acute concerning abnormal values Discussed admission with Dr. Mario hospitalist service was accepted patient for admission . Signout given to the admitting hospitalist, who accepts the patient. Discussed plan with the patient family at bedside, Patient and family aware of the plan and agree. Patient is clinically unchanged and stable. <Radha Parsons I - Last Filed: 02/09/18 22:54> - General Chief Complaint: CVA/TIA Stated Complaint: LEFT FACIAL DROOP Time Seen by Provider: 02/09/18 20:09 Past History <Evita Gipson - Last Filed: 02/09/18 21:05> - Past Medical History Anemia: Yes (NO MEDS) Asthma: No Cancer: No Cardiac Disorders: No CVA: No COPD: Yes CHF: No Dementia: No Diabetes: Yes GI Disorders: Yes (LAP BAND COMPLICATIONS) Disorders: Yes HTN: No Hypercholesterolemia: (on lipitor because of metformin) Liver Disease: No Seizures: No Thyroid Disease: Yes (GRAVES) - Surgical History Abdominal Surgery: Yes (NUMEROUS A RESULT OF LAP BAND COMPLICATIONS) Appendectomy: No Cardiac Surgery: No Cholecystectomy: Yes GI Surgery: Yes (DUODENAL ULCER SX) Lung Surgery: No Neurologic Surgery: No Orthopedic Surgery: Yes (LT KNEE ARTHROSCOPY x2, LT KNEE MENISCAL REPAIR) - Suicide/Smoking/Psychosocial Hx Smoking Status: Yes Smoking History: Unknown if ever smoked Have you smoked in the past 12 months: No Number of Cigarettes Smoked Daily: 10 If you are a former smoker, when did you quit?: 2005 Hx Alcohol Use: No Drug/Substance Use Hx: No Substance Use Type: None Hx Substance Use Treatment: No <Radha Parsons I - Last Filed: 02/09/18 22:54> - Past Medical History Allergies/Adverse Reactions: Allergies Allergy/AdvReac Type Severity Reaction Status Date / Time cephalexin monohydrate Allergy Severe Difficulty Verified 08/10/17 14:21 [From Keflex] Breathing iodine Allergy Severe Hives Verified 08/10/17 14:21 adhesive tape Allergy Mild Verified 08/10/17 14:21 codeine [Codeine] Allergy Mild Itching Verified 08/10/17 14:21 Home Medications: Ambulatory Orders Aspirin [Aspirin EC] 81 mg PO DAILY 08/10/17 Oxycodone HCl 5 mg PO Q6H #20 tablet MDD 4 12/04/17 Atorvastatin Ca [Lipitor] 10 mg PO DAILY 02/09/18 Review of Systems - Review of Systems Able to Perform ROS?: Yes Comments:: 02/09/18 20:36 General: No fevers or chills, no weakness, no weight loss HEENT: No change in vision. No sore throat,. No ear pain CardioVascular: No chest pain or shortness of breath Respiratory:No cough, or wheezing. Gastrointestinal: no nausea, vomiting, diarrhea or constipation, No rectal bleeding Genitourinary: No dysuria, hematuria, or frequency Musculoskeletal: No joint or muscle pain or swelling Neurologic: +left facial droop and slightly slurred speech. No headache, vertigo , dizziness or loss of consciousness Psychiatric: no depression Skin: No rashes or easy bruising Endocrine: no increased thirst or abnormal weight change Allergic: no skin or latex allergy All other systems reviewed and normal All Other Systems: Reviewed and Negative <Evita Gipson - Last Filed: 02/09/18 21:05> *Physical Exam - Physical Exam Comments: 02/09/18 20:35 General: Well-nourished well-developed individual, no acute distress HEENT: Throat: Normal, tonsils normal, no erythema or exudate Neck: Supple, no meningeal signs, no lymphadenopathy Eyes::Pupils equal reactive and round, extraocular motion intact Chest: Nontender to palpation Cardiac: S1-S2 normal, regular rate and rhythm, no murmurs rubs or gallops Respiratory: Lungs clear to auscultation bilateral Abdomen: Soft, nondistended, normal bowel sounds, nontender to palpation diffusely Extremities: Warm, dry, no cyanosis, clubbing, or edema Skin: No rashes Neuro: See NIHSS Psych: Normal mood and affect <Evita Gipson - Last Filed: 02/09/18 21:05> NIH Stroke Scale - Last Known Well Date/Time & Onset Date Last Known Well: 02/09/18 Time Last Known Well: 15:00 - Initial Evaluation Level of consciousness: Alert Ask patient the month and their age: Answers both correctly Ask patient to open & close eyes; make fist and let go: Obeys both correctly Best gaze (horizontal eye movement): Normal Visual field testing: No visual field loss Facial paresis (Show teeth/raise eyebrows/close eyes tight): Partial paralysis ( total or near paralysis of lower face) Motor Function: Left Arm: Normal Motor Function: Right Arm: Normal (extends arm 90 (or 45) degrees for 10 seconds without drift Motor Function: Left Leg: Normal (extends leg 30 degrees for 5 seconds without drift) Motor Function: Right Leg: Normal (extends leg 30 degrees for 5 seconds without drift) Limb Ataxia: No ataxia Sensory(Use pinprick test arms,legs,trunk,face/side to side): Normal Best language (Describe picture, name items, read sentences): No Aphasia Dysarthria (read several words): Mild to moderate slurring of words Extinction and Inattention: No abnormality - Total Score NIH Stroke Scale Score: 3 <Radha Parsons I - Last Filed: 02/09/18 22:54> Heart Score/ECG Review - ECG Intrepretation Rhythm: Regular Rhythm - ECG Impressions Comment:: 02/09/18 21:06 EKG entered and reviewed by me at 21:04, normal sinus rhythm. Incomplete right bundle branch block. Borderline ECG. Vent. rate at 79 bpm. IN interval at 144 ms. <Evita Gipson - Last Filed: 02/09/18 21:05> Critical Care Time/MDM Note - Medical Decision Making Note: 02/09/18 20:37 Documentation prepared by Evita Gipson, acting as medical safety director for Radha Parsons MD/DO. 02/09/18 20:[address] Coulter paged at answering service [phone] <Evita Gipson - Last Filed: 02/09/18 21:05> Discharge Disposition <Evita Gipson - Last Filed: 02/09/18 21:05> - Discharge Dispostion Last Admission D/C Date: 12/04/17 Admit: Yes <Radha Parsons I - Last Filed: 02/09/18 22:54> - Diagnosis TIA (transient ischemic attack) Qualifiers: Transient cerebral ischemia type: unspecified Qualified Code(s): G45.9 - Transient cerebral ischemic attack, unspecified - Discharge Dispostion Condition at time of disposition: Fair - Referrals Referrals: Bobo Banda MD [Primary Care Provider] - - Patient Instructions - Post Discharge Activity
[2018-02-09 22:01] LABS: BASO % 0.4 % (0-2.0); EOS % 3.2 % (0-4.5); HEMATOCRIT 36.4 % (32.4-45.2); HEMOGLOBIN 11.7 GM/dl (10.7-15.3); LYMPH % 16.2 % (8-40); MCH 25.3 pg (25.7-33.7); MCHC 32.1 g/dl (32.0-36.0); MEAN CELL VOLUME 78.7 fl (80-96); MEAN PLT VOLUME 8.3 fl (7.5-11.1); MONO % 7.5 % (3.8-10.2); NEUT % 72.7 % (42.8-82.8); PLATELET COUNT 218 K/MM3 (134-434); RBC 4.63 M/mm3 (3.60-5.2); RDW 17.4 % (11.6-15.6); WHITE BLOOD COUNT 8.6 K/mm3 (4.0-10.8)
[2018-02-09 22:10] LABS: INR 1.16 (0.82-1.09); PROTHROMBIN TIME (PATIENT) 12.9 SEC (10.2-13.0)
[2018-02-09 22:15] LABS: ALBUMIN 3.6 g/dl (3.5-5.0); ALK PHOS 76 U/L (32-92); ANION GAP 3 (8-16); BLOOD UREA NITROGEN 13 mg/dl (7-18); CALCIUM 8.7 mg/dl (8.4-10.2); CHLORIDE 104 mmol/L (98-107); CO2 28 mmol/L (22-28); GLUCOSE,RANDOM 82 mg/dl (74-106); POTASSIUM 3.9 mmol/L (3.5-5.1); SGOT/AST 15 U/L (10-42); SGPT/ALT 15 U/L (10-40); SODIUM 135 mmol/L (136-145); TOT PROT 6.7 g/dl (6.4-8.3)
[2018-02-09 22:26] LABS: BILIRUBIN,TOTAL < 0.5 mg/dl (0.2-1.0); CREATININE < 0.8 mg/dl (0.6-1.3)
[2018-02-10 00:38] VITALS: BMI 43.6
[2018-02-10] MEDS ORDERED: PATIENT'S OWN MEDICATION (NON-FORMULARY) (Meloxicam 15 MG) PO PRN (01:58)
[2018-02-10] MEDS ORDERED: ASPIRIN 81 MG CHEWABLE TABLETS PO ONE (02:03)
[2018-02-10] MEDS: oxyCODONE HCL 5 MG TABLET PO PRN ×4 (03:24→21:14)
[2018-02-10] MEDS: LEVOTHYROXINE NA 100 MCG TABLET (FP) PO SCH (06:18)
[2018-02-10] MEDS ORDERED: INSULIN SLIDING SCALE (NOVOLOG) 1 VIAL SQ SCH ×2 (07:00→22:00)
[2018-02-10 07:47] LABS: BASO % 0.7 % (0-2.0); EOS % 3.7 % (0-4.5); HEMATOCRIT 35.1 % (32.4-45.2); LYMPH % 18.1 % (8-40); MCH 24.8 pg (25.7-33.7); MCHC 31.3 g/dl (32.0-36.0); MEAN CELL VOLUME 79.1 fl (80-96); MEAN PLT VOLUME 8.4 fl (7.5-11.1); MONO % 7.9 % (3.8-10.2); NEUT % 69.6 % (42.8-82.8); PLATELET COUNT 204 K/MM3 (134-434); RBC 4.43 M/mm3 (3.60-5.2); WHITE BLOOD COUNT 8.8 K/mm3 (4.0-10.8)
[2018-02-10 08:07] LABS: ANION GAP 7 (8-16); BLOOD UREA NITROGEN 14 mg/dl (7-18); CALCIUM 8.6 mg/dl (8.4-10.2); CHLORIDE 105 mmol/L (98-107); CO2 25 mmol/L (22-28); CREATININE 0.8 mg/dl (0.6-1.3); GLUCOSE,RANDOM 81 mg/dl (74-106); MAGNESIUM 1.5 mg/dL (1.8-2.4); PHOSPHOROUS 4.1 mg/dl (2.5-4.6); POTASSIUM 3.7 mmol/L (3.5-5.1); SODIUM 137 mmol/L (136-145)
--- NOTE | 2018-02-10 08:22 | HP ---
CHIEF COMPLAINT: Facial droop PCP: Dr. Banda HISTORY OF PRESENT ILLNESS: This is a 67 year old female former smoker with a history of NIDDM, Grave's disease s/p thyroid ablation, duodenal ulcer, degenerative disc disease, and torn right rotator cuff. She was previously on HTN medications but no longer needs them, she is taking a statin but states that this is preventive in the setting of DM only. She presented to the ED yesterday after 20:00 with left-sided facial droop which started at around 14: 00. NIHSS on exam was 3. ER course was notable for: -CT Brain: No intracranial hemorrhage or infarct, mild microvascular ischemic changes Recent Travel: None PAST MEDICAL HISTORY: As above PAST SURGICAL HISTORY: Right knee surgery x 3, lap band and removal, hernia repair x 2, left carpal tunnel Social History: Lives alone, has 2 dogs. 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 Smoking: Former smoker, 30 pack-years. Quit 11 years ago. Alcohol: None Drugs: None Family History: No CVA in parents or siblings. Allergies cephalexin monohydrate [From Keflex] Allergy (Severe, Verified 08/10/17 14:21) Difficulty Breathing and hives iodine Allergy (Severe, Verified 08/10/17 14:21) Hives adhesive tape Allergy (Mild, Verified 08/10/17 14:21) blisters codeine [Codeine] Allergy (Mild, Verified 08/10/17 14:21) Itching and confusion HOME MEDICATIONS: Home Medications Medication Instructions Recorded Aspirin [Aspirin EC] 81 mg PO DAILY 08/10/17 Oxycodone HCl 5 mg PO Q6H #20 tablet MDD 4 12/04/17 Atorvastatin Ca [Lipitor] 10 mg PO DAILY 02/09/18 REVIEW OF SYSTEMS CONSTITUTIONAL: Absent: fever, chills, diaphoresis, generalized weakness, malaise, loss of appetite, weight change HEENT: Left ear pain Absent: rhinorrhea, nasal congestion, throat pain, throat swelling, difficulty swallowing, mouth swelling, eeye pain, visual changes CARDIOVASCULAR: Absent: chest pain, syncope, palpitations, irregular heart rate, lightheadedness , peripheral edema RESPIRATORY: Absent: cough, shortness of breath, dyspnea with exertion, orthopnea, wheezing, stridor, hemoptysis GASTROINTESTINAL: Chronic diarrhea Absent: abdominal pain, abdominal distension, nausea, vomiting, constipation, melena, hematochezia GENITOURINARY: Dysuria, burning on urination. Absent: dysuria, frequency, urgency, hesitancy, hematuria, flank pain, genital pain MUSCULOSKELETAL: Right shoulder pain, chronic low back pain Absent: joint swelling, neck pain SKIN: Absent: rash, itching, pallor HEMATOLOGIC/IMMUNOLOGIC: Absent: easy bleeding, easy bruising, lymphadenopathy, frequent infections ENDOCRINE: Absent: unexplained weight gain, unexplained weight loss, heat intolerance, cold intolerance NEUROLOGIC: Left facial droop - denies ever having had slurred speech. Left occipital headache. Absent: focal weakness or paresthesias, dizziness, unsteady gait, seizure, mental status changes, bladder or bowel incontinence PSYCHIATRIC: Absent: anxiety, depression, suicidal or homicidal ideation, hallucinations. PHYSICAL EXAMINATION Vital Signs - 24 hr 02/09/18 02/09/18 02/09/18 20:03 20:45 21:57 Temperature 97.8 F Pulse Rate 78 Pulse Rate [ 78 82 Apical] Respiratory 20 20 19 Rate Blood Pressure 149/96 Blood Pressure 144/85 120/73 [Right Arm] O2 Sat by Pulse 99 96 97 Oximetry (%) 02/09/18 02/09/18 02/10/18 23:36 23:59 05:39 Temperature 98.0 F 98.8 F 97.7 F Pulse Rate 87 87 85 Pulse Rate [ Apical] Respiratory 19 19 18 Rate Blood Pressure 134/85 134/85 155/73 Blood Pressure [Right Arm] O2 Sat by Pulse 96 96 Oximetry (%) 02/10/18 06:36 Temperature Pulse Rate Pulse Rate [ Apical] Respiratory Rate Blood Pressure Blood Pressure [Right Arm] O2 Sat by Pulse 95 Oximetry (%) GENERAL: Awake, alert, and fully oriented, in no acute distress. HEAD: Normal with no signs of trauma. EYES: Pupils equal, round and reactive to light, extraocular movements intact, sclera anicteric, conjunctiva clear. No lid lag. EARS, NOSE, THROAT: Ears normal, nares patent, oropharynx clear without exudates. Moist mucous membranes. Left auditory canal and TM normal. NECK: Normal range of motion, supple without lymphadenopathy, JVD, or masses. LUNGS: Breath sounds equal, clear to auscultation bilaterally. No wheezes, and no crackles. No accessory muscle use. HEART: Regular rate and rhythm, normal S1 and S2 without murmur, rub or gallop. ABDOMEN: Soft, nontender, obese, normoactive bowel sounds, no guarding, no rebound, no masses. No hepatomegaly or splenomegaly. MUSCULOSKELETAL: Normal range of motion at all joints. No bony deformities or tenderness. No CVA tenderness. UPPER EXTREMITIES: 2+ pulses, warm, well-perfused. No cyanosis. No clubbing. No peripheral edema. LOWER EXTREMITIES: 2+ pulses, warm, well-perfused. No calf tenderness. No peripheral edema. NEUROLOGICAL: Left facial droop. Droop involves eyebrow at rest, however patient is able to close eye completely and is able to raise eyebrow. Normal speech. Normal gait. PSYCHIATRIC: Cooperative. Good eye contact. Appropriate mood and affect. SKIN: Warm, dry, normal turgor, no rashes or lesions noted, normal capillary refill. Laboratory Results - last 24 hr 02/09/18 02/09/18 02/09/18 21:40 21:40 21:40 WBC 8.6 RBC 4.63 Hgb 11.7 D Hct 36.4 MCV 78.7 L MCH 25.3 L MCHC 32.1 RDW 17.4 H D Plt Count 218 MPV 8.3 Neutrophils % 72.7 Lymphocytes % 16.2 Monocytes % 7.5 Eosinophils % 3.2 Basophils % 0.4 PT with INR 12.9 INR 1.16 Sodium 135 L Potassium 3.9 Chloride 104 Carbon Dioxide 28 Anion Gap 3 L BUN 13 Creatinine < 0.8 Creat Clearance w eGFR > 60 POC Glucometer Random Glucose 82 D Calcium 8.7 Phosphorus Magnesium Total Bilirubin < 0.5 D AST 15 ALT 15 Alkaline Phosphatase 76 Creatine Kinase Troponin I Total Protein 6.7 Albumin 3.6 02/09/18 02/09/18 02/10/18 21:40 21:40 06:12 WBC RBC Hgb Hct MCV MCH MCHC RDW Plt Count MPV Neutrophils % Lymphocytes % Monocytes % Eosinophils % Basophils % PT with INR INR Sodium Potassium Chloride Carbon Dioxide Anion Gap BUN Creatinine Creat Clearance w eGFR POC Glucometer 81 Random Glucose Calcium Phosphorus Magnesium Total Bilirubin AST ALT Alkaline Phosphatase Creatine Kinase 28 Troponin I < 0.03 Total Protein Albumin 02/10/18 02/10/18 07:20 07:20 WBC 8.8 RBC 4.43 Hgb 11.0 Hct 35.1 MCV 79.1 L MCH 24.8 L MCHC 31.3 L RDW 17.0 H Plt Count 204 MPV 8.4 Neutrophils % 69.6 Lymphocytes % 18.1 Monocytes % 7.9 Eosinophils % 3.7 Basophils % 0.7 PT with INR INR Sodium 137 Potassium 3.7 Chloride 105 Carbon Dioxide 25 Anion Gap 7 L BUN 14 Creatinine 0.8 Creat Clearance w eGFR POC Glucometer Random Glucose 81 Calcium 8.6 Phosphorus 4.1 Magnesium 1.5 L Total Bilirubin AST ALT Alkaline Phosphatase Creatine Kinase Troponin I Total Protein Albumin ASSESSMENT/PLAN: 67 year old female with left facial droop, presented outside the window for TPA. 1. Facial droop -CT brain neg for hemorrhage/infarct -MRI brain without contrast (patient states that she has an allergy to MRI contrast) -Neurology to consult 2. DM -Continue Metformin & Actos given short expected length of stay 3. Shoulder pain -Takes Meloxicam + Nexium, Meloxicam non-formulary here; Toradol 15mg IVP x 1 + Protonix -Substitute xycodone 5mg for Vicodin -Follow up with orthopedics as outpatient 4. Dysuria -UA/culture 5. F/E/N -Diabetic diet -Hypomagnesemia - replete (2g IVPB for Mg 1.5) DISPO: Observation. Neurology recommendations pending. Addendum 12:30p: MRI reviewed. No evidence of infarction. 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 Patient was already aware of the mass, but has not had it evaluated. Given these new symptoms which may be related, ENT consultation requested (left message with office staff as he is currently in a procedure). Admit for inpatient services. Addendum: Evaluated by Dr. 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 Send Lyme titer. Will monitor fingersticks and order insulin sliding scale. Awaiting callback from ENT. Hospitalist Screening - Colonoscopy Questionnaire Colonoscopy Questionnaire: Colonoscopy Questionnaire
[2018-02-10] MEDS: metFORMIN HCL 500 MG TABLET (FP) PO SCH ×2 (09:08→16:30)
[2018-02-10] MEDS ORDERED: MAGNESIUM SULF 50% (8.12 MEQ/2 ML-1 GM VIAL) IVPB ONE (09:08)
[2018-02-10] MEDS: SOLIFENACIN SUCCINATE 5 MG TAB (FP) PO SCH (09:09)
[2018-02-10] MEDS: ASPIRIN COATED 81 MG TABLET.EC PO SCH (09:09)
[2018-02-10] MEDS: LORATADINE 10 MG TABLET PO SCH (09:09)
[2018-02-10] MEDS: PIOGLITAZONE HCL 45 MG PO SCH (09:12)
[2018-02-10] MEDS ORDERED: KETOROLAC TROMETHAMINE 15 MG/ML VIAL IVPUSH ONE (09:17)
[2018-02-10] MEDS ORDERED: LORazepam 1 MG TABLET PO ONE (09:27)
[2018-02-10] MEDS ORDERED: LORazepam 0.5 MG TABLET ONE (09:52)
[2018-02-10] MEDS ORDERED: PANTOPRAZOLE 40 MG TABLET (FP) PO SCH (10:00)
[2018-02-10] MEDS: NYSTATIN POWDER 100,000 UNITS/GM - 15 GM TOPICAL POWDER TP SCH (10:08)
--- NOTE | 2018-02-10 10:34 | EKG ---
Test Reason : Blood Pressure : / mmHG Vent. Rate : 079 BPM Atrial Rate : 079 BPM P-R Int : 144 ms QRS Dur : 098 ms QT Int : 384 ms P-R-T Axes : 000 010 016 degrees QTc Int : 440 ms POOR DATA QUALITY, INTERPRETATION MAY BE ADVERSELY AFFECTED NORMAL SINUS RHYTHM INCOMPLETE RIGHT BUNDLE BRANCH BLOCK BORDERLINE ECG WHEN COMPARED WITH ECG OF 01-DEC-2017 00:18, NO SIGNIFICANT CHANGE WAS FOUND Confirmed by JASMINE QUIJANO, BEBETO ([id number]) on 02/10/2018 10:34:14 AM Referred By: MD CASAREZ Confirmed By:BEBETO FERRARO MD
--- NOTE | 2018-02-10 13:10 | CONSULT ---
Consult - text type - Consultation Consultation Note: NEUROLOGY CONSULTATION is greatly appreciated: This 67 yo RH woman with 2 children lives alone. 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 OA s/p left TKR x 3. Has cane, walker, scooter but doesn't get out. Maintained on Synthroid (200ug), metformin, atorvastatin and pantoprazole. Admitted yesterday with slurred speech and left facial droop after 2-3 days of left retroauricular pressing headache and 1 day of deep left ear pain. No left arm weakness or change in chronic gait difficulty. Pt is aware of left jaw mass > [address] of head (reviewed): Normal MRI of brain (reviewed): Scattered microvascular changes and left parotid mass. BJORN: Obese. No bruits. S/P Left TKR. s/P left Carpal tunnel release Firm, mobile left paratid mass is palpable. NEURO: MS/speech:Normal CN II-XII: sig for mod. left peripheral CN VII (Dickens's) Palsy. + complete volitional left eye closure. Motor: No drift. Normal strength. Areflexic in legs. Toes downgoing. Coord: No FTN dystaxia Sensory: Reduced vibration in feet. 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 SUGGEST: Medrol dosepak or prednisone equivalent. Monitor BG's. Check Lyme titre. ENT eval for Left Parotid mass (doubt it is etiological for the Dickens's Palsy and is found incidentally). Neuro f/u as out patient. Thank you very much, Tristin Coulter MD
[2018-02-10] MEDS: predniSONE 20 MG TABLET (UD) PO SCH ×2 (14:20→21:11)
[2018-02-10] MEDS: INSULIN SLIDING SCALE (NOVOLOG) 1 VIAL SQ SCH ×2 (16:56→21:21)
[2018-02-10 18:27] LABS: PH,URINE 5.5 (4.5-8); URINE APPEARANCE Slightly; URINE BILIRUBIN 1+ (NEGATIVE); URINE BLOOD 3+ (NEGATIVE); URINE COLOR YELLOW; URINE GLUCOSE (UA) Negative (NEGATIVE); URINE KETONE 1+ (NEGATIVE); URINE LEUK ESTERASE 1+ (NEGATIVE); URINE NITRITE Negative (NEGATIVE); URINE PROTEIN 1+ (NEGATIVE); URINE UROBILINOGEN 0.2 (0.2-1.0)
[2018-02-10 19:22] LABS: URINE RBC 15-20 /hpf (0-3); URINE WBC 80-100 (0-5)
[2018-02-10 21:19] VITALS: PULSE 82; TEMP 98.1
[2018-02-10] MEDS ORDERED: ATORVASTATIN CA 10 MG TABLET (FP) PO SCH (22:00)
[2018-02-11] MEDS: metFORMIN HCL 500 MG TABLET (FP) PO SCH (06:28)
[2018-02-11] MEDS: LEVOTHYROXINE NA 100 MCG TABLET (FP) PO SCH (06:29)
[2018-02-11] MEDS: INSULIN SLIDING SCALE (NOVOLOG) 1 VIAL SQ SCH (06:29)
[2018-02-11] MEDS: oxyCODONE HCL 5 MG TABLET PO PRN (06:48)
[2018-02-11 06:51] VITALS: BP 124/84
[2018-02-11 09:01] LABS: HEMATOCRIT 39.5 % (32.4-45.2); HEMOGLOBIN 12.7 GM/dl (10.7-15.3); MCH 25.5 pg (25.7-33.7); MCHC 32.2 g/dl (32.0-36.0); MEAN CELL VOLUME 79.2 fl (80-96); MEAN PLT VOLUME 9.5 fl (7.5-11.1); PLATELET COUNT 236 K/MM3 (134-434); RBC 4.98 M/mm3 (3.60-5.2); RDW 16.9 % (11.6-15.6); WHITE BLOOD COUNT 10.2 K/mm3 (4.0-10.8)
[2018-02-11 09:05] LABS: INR 1.15 (0.82-1.09); PROTHROMBIN TIME (PATIENT) 12.8 SEC (10.2-13.0)
[2018-02-11 09:19] LABS: ANION GAP 10 (8-16); BLOOD UREA NITROGEN 19 mg/dl (7-18); CALCIUM 9.1 mg/dl (8.4-10.2); CHLORIDE 102 mmol/L (98-107); CO2 23 mmol/L (22-28); CREATININE 0.8 mg/dl (0.6-1.3); GLUCOSE,RANDOM 232 mg/dl (74-106); MAGNESIUM 1.7 mg/dL (1.8-2.4); POTASSIUM 4.2 mmol/L (3.5-5.1); SODIUM 135 mmol/L (136-145)
[2018-02-11] MEDS: predniSONE 20 MG TABLET (UD) PO SCH (09:43)
[2018-02-11] MEDS: LORATADINE 10 MG TABLET PO SCH (09:43)
[2018-02-11] MEDS: SOLIFENACIN SUCCINATE 5 MG TAB (FP) PO SCH (09:44)
[2018-02-11] MEDS: ASPIRIN COATED 81 MG TABLET.EC PO SCH (09:44)
[2018-02-11] MEDS: PIOGLITAZONE HCL 45 MG PO SCH (09:44)
[2018-02-11] MEDS: NYSTATIN POWDER 100,000 UNITS/GM - 15 GM TOPICAL POWDER TP SCH (09:45)
[2018-02-11] MEDS ORDERED: ARTIFICIAL TEARS (POLYVINYL ALCOHOL 1.4%) OPTH DROPS OU PRN (09:54)
--- NOTE | 2018-02-11 10:06 | PN ---
Physical Exam: SUBJECTIVE: Patient seen and examined OBJECTIVE: Vital Signs Period Temp Pulse Resp BP Sys/Gillette Pulse Ox Last 24 Hr 98.1 F-99.2 F 82-94 18-20 120-136/46-84 94-94 GENERAL: The patient is awake, alert, and fully oriented, in no acute distress. HEAD: Normal with no signs of trauma. EYES: PERRL, extraocular movements intact, sclera anicteric, conjunctiva clear. No ptosis. ENT: Ears normal, nares patent, oropharynx clear without exudates, moist mucous membranes. NECK: Trachea midline, full range of motion, supple. LUNGS: Breath sounds equal, clear to auscultation bilaterally, no wheezes, no crackles, no accessory muscle use. HEART: Regular rate and rhythm, S1, S2 without murmur, rub or gallop. ABDOMEN: Soft, nontender, nondistended, normoactive bowel sounds, no guarding, no rebound, no hepatosplenomegaly, no masses. EXTREMITIES: 2+ pulses, warm, well-perfused, no edema. NEUROLOGICAL: Cranial nerves II through XII grossly intact. Normal speech, gait not observed. PSYCH: Normal mood, normal affect. SKIN: Warm, dry, normal turgor, no rashes or lesions noted Laboratory Results - last 24 hr 02/10/18 02/10/18 02/10/18 16:47 18:00 21:17 WBC RBC Hgb Hct MCV MCH MCHC RDW Plt Count MPV Neutrophils % Lymphocytes % PT with INR INR Sodium Potassium Chloride Carbon Dioxide Anion Gap BUN Creatinine POC Glucometer 127 268 Random Glucose Calcium Magnesium Urine Color Yellow Urine Appearance Slightly Urine pH 5.5 Ur Specific [place] >= 1.030 H Urine Protein 1+ H Urine Glucose (UA) Negative Urine Ketones 1+ H Urine Blood 3+ H Urine Nitrite Negative Urine Bilirubin 1+ H Urine Urobilinogen 0.2 Ur Leukocyte Esterase 1+ H Urine RBC 15-20 Urine WBC 80-100 Ur Epithelial Cells 3-5 02/11/18 02/11/18 02/11/18 06:00 06:00 06:00 WBC 10.2 RBC 4.98 Hgb 12.7 D Hct 39.5 MCV 79.2 L MCH 25.5 L MCHC 32.2 RDW 16.9 H Plt Count 236 MPV 9.5 Neutrophils % No Result Required. Lymphocytes % No Result Required. PT with INR 12.8 INR 1.15 Sodium 135 L Potassium 4.2 Chloride 102 Carbon Dioxide 23 Anion Gap 10 BUN 19 H D Creatinine 0.8 POC Glucometer Random Glucose 232 H D Calcium 9.1 Magnesium 1.7 L Urine Color Urine Appearance Urine pH Ur Specific [place] Urine Protein Urine Glucose (UA) Urine Ketones Urine Blood Urine Nitrite Urine Bilirubin Urine Urobilinogen Ur Leukocyte Esterase Urine RBC Urine WBC Ur Epithelial Cells 02/11/18 06:27 WBC RBC Hgb Hct MCV MCH MCHC RDW Plt Count MPV Neutrophils % Lymphocytes % PT with INR INR Sodium Potassium Chloride Carbon Dioxide Anion Gap BUN Creatinine POC Glucometer 232 Random Glucose Calcium Magnesium Urine Color Urine Appearance Urine pH Ur Specific [place] Urine Protein Urine Glucose (UA) Urine Ketones Urine Blood Urine Nitrite Urine Bilirubin Urine Urobilinogen Ur Leukocyte Esterase Urine RBC Urine WBC Ur Epithelial Cells Active Medications Generic Name Dose Route Start Last Admin Trade Name Freq PRN Reason Stop Dose Admin Artificial Tears 1 drop 02/11/18 09:54 Artificial Tears OU QID PRN DRY EYES Aspirin 81 mg 02/10/18 10:00 02/11/18 09:44 Ecotrin - PO 81 mg DAILY JOSIAH Administration Atorvastatin Calcium 10 mg 02/10/18 22:00 02/10/18 21:12 Lipitor - PO 10 mg HS JOSIAH Administration Insulin Aspart 1 vial 02/10/18 16:30 02/11/18 06:29 Novolog Vial Sliding Scale - SQ 4 units ACHS JOSIAH Administration Protocol Levofloxacin 750 mg 02/11/18 10:00 Levaquin PO 02/15/18 23:59 DAILY JOSIAH Levothyroxine Sodium 200 mcg 02/10/18 07:00 02/11/18 06:29 Synthroid - PO 200 mcg ACBK JOSIAH Administration Loratadine 10 mg 02/10/18 10:00 02/11/18 09:43 Claritin - PO 10 mg DAILY JOSIAH Administration Metformin HCl 1,000 mg 02/10/18 07:00 02/11/18 06:28 Glucophage - PO 1,000 mg BIDAC JOSIAH Administration Miconazole Nitrate 1 applic 02/11/18 10:00 Monistat Topical Cream - TP BID JOSIAH Non-Formulary Medication 45 mg 02/10/18 10:00 02/11/18 09:44 Pioglitazone Hcl [Actos] PO 45 mg DAILY JOSIAH Administration Nystatin 1 applic 02/10/18 10:30 02/11/18 09:45 Nystop Powder - TP 1 applic DAILY JOSIAH Administration Oxycodone HCl 5 mg 02/10/18 01:58 02/11/18 06:48 Roxicodone - PO 5 mg Q6H PRN Administration PAIN LEVEL 7 - 10 Pantoprazole Sodium 40 mg 02/10/18 10:00 02/10/18 09:09 Protonix - PO 40 mg DAILY JOSIAH Administration Prednisone 80 mg 02/10/18 13:00 02/11/18 09:43 Deltasone - PO 02/12/18 12:59 80 mg BID JOSIAH Administration Solifenacin 5 mg 02/10/18 10:00 02/11/18 09:44 Vesicare - PO 5 mg DAILY JOSIAH Administration Valacyclovir HCl 1,000 mg 02/11/18 14:00 Valtrex - PO 02/17/18 22:00 TID JOSIAH ASSESSMENT/PLAN: This 67 year old female with left facial droop negative for CVA , 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 -steroids per neuro consult -valtrex for one week. -eye care, tape at night, artifical tears 5 x day, educated on not touching eye 2. DM -Continue Metformin & Actos -while on steroids, will cover with insulin short term 3. Shoulder pain -Takes Meloxicam + Nexium, Meloxicam non-formulary here; Toradol 15mg IVP x 1 + Protonix -Substitute xycodone 5mg for Vicodin -Follow up with orthopedics as outpatient 4. Dysuria -UTI positive, treating with Levaquin for 5 days 5. F/E/N -Diabetic diet -Hypomagnesemia - replete (2g IVPB for Mg 1.5 today) 6. Vaginal Yeast infection -nystatin powder -monostat cream -daily cultured yogurts DISPO: discharge home today Visit type - Emergency Visit Emergency Visit: Yes ED Registration Date: 02/10/18 Care time: The patient presented to the Emergency Department on the above date and was hospitalized for further evaluation of their emergent condition. - New Patient This patient is new to me today: Yes Date on this admission: 02/11/18 - Critical Care Critical Care patient: No - Discharge Referral Referred to [facility] Med [facility].C.: No
[2018-02-11] MEDS ORDERED: PRESCRIPTION PAD 1 EACH EACH NR ONE (10:42)
[2018-02-11] MEDS ORDERED: MAGNESIUM SULF 50% (8.12 MEQ/2 ML-1 GM VIAL) IVPB ONE (11:00)
[2018-02-11] MEDS ORDERED: PT OWN MED DRAWER 7, Y5N ONE ×2 (11:15→11:25)
[2018-02-11] MEDS ORDERED: valACYclovir HCL 500 MG TABLET (FP) PO SCH (11:30)
[2018-02-11 11:45] LABS: PLATELET ESTIMATE ADEQUATE
[2018-02-11] MEDS ORDERED: MICONAZOLE NITRATE 14 GM/TUBE TUBE TP SCH (13:00)
== END 2018-02-11 14:50 | disposition home or self-care (01) | DRG 74 ==
LOC: FER 20:02 → FM/S 22:50 → OBSVTOIN 02-10 12:42
PROVIDERS: ADMIT Internal Medicine; ATTEND Nurse Practitioner Family
DX: G51.0 Bell's palsy (principal); Z68.41 Body mass index [BMI] 40.0-44.9, adult; E05.00 Thyrotoxicosis with diffuse goiter without thyrotoxic crisis or storm; K26.7 Chronic duodenal ulcer without hemorrhage or perforation; M25.519 Pain in unspecified shoulder; E83.42 Hypomagnesemia; R30.0 Dysuria; B37.3 Candidiasis of vulva and vagina; R59.9 Enlarged lymph nodes, unspecified; E11.42 Type 2 diabetes mellitus with diabetic polyneuropathy; G56.01 Carpal tunnel syndrome, right upper limb; E66.01 Morbid (severe) obesity due to excess calories; Z96.651 Presence of right artificial knee joint; Z87.891 Personal history of nicotine dependence
CPT/HCPCS: 36415; 70450-TC; 70551-TC; 71045-TC-FY; 80048; 80053; 81003; 81015; 82550; 82962; 83735; 84100; 84443; 84484; 85025; 85610; 86618; 87086; 93005; 99284-25; G0378

== ENCOUNTER 2019-02-10 13:39 | Inpatient (IN) | payer OTHER, BC ==
--- NOTE | 2019-02-10 13:46 | PDOC ---
History of Present Illness - General Chief Complaint: Blood Sugar Problem Stated Complaint: HYPOGLYCEMIA Time Seen by Provider: 02/10/19 13:40 History Source: Patient Exam Limitations: No Limitations - History of Present Illness Initial Comments: 02/10/19 14:20 HPI 67 yo F with h/o DM, former smoker, [place] palsy, hypothyroidism, HTN, HLD, anemia, hernias, lap band s/p removal, chronic UTIs, degenerative disc disease/ chronic back pain BIB EMS presenting with AMS and recurrent hypoglycemia down to 30s today. She had confusion, dizziness prior to hypoglycemia episode today. EMS given oral glucose x2, D10 100cc with improvement with FS up to 76. Now back to baseline status, no complaints currently, +chronic back pain. Last treated for UTI last month with abx, improved; chronically with UTI sx including dysuria and increased urination and frequency and feels she may have UTI. Of note, pt has been experiencing frequent falls x 3 episodes over the past one month, all preceded by dizziness episodes and probable hypoglycemia. Most recent falls were yesterday at home and today at her sisters place where she had the episode of AMS and hypoglycemia. Denies trauma. She admits to eating a normal diet, did eat a salad earlier this morning. She does not check her blood sugars regularly. She is on pioglitizone, glipizide and metformin Denies fever, chills, neck pain, chest pain, SOB, palpitation, N, V, D, abdominal pain, leg swelling, No sick contacts. No new changes in medications. No suspicious food intake Allergies: codeine, keflex, iodine Past Medical History: Social history: former smoker Surgical history: abdominal surgeries, lap band, wound vac, hernia repair PMD: Dr Allen Review of systems Constitutional: no fevers or chills. +general weakness HEENT: +dizziness. no headache. No congestion. No visual/hearing disturbances. CVS: no cp or syncope. Resp: no sob. No cough. Gastrointestinal: no abdominal pain, nausea or vomiting or diarrhea. Genitourinary: +chronic dysuria and urinary frequency. MUSCULOSKELETAL: No joint pain and swelling. No neck pain. +chronic back pain. +chronic leg pain and neuropathy. SKIN: no redness or skin changes, no discharge, no rash. No wounds. Hematologic: no easy bruising/bleeding. NEUROLOGIC: No weakness, numbness or tingling. No headache,+ dizziness, + LOC or altered mental status. Allergic/Immunologic: allergy to codeine, keflex and iodine All other systems reviewed and negative, or as documented in HPI. Physical exam: General: awake and alert, NAD. elderly female, older than stated age HEENT: NCAT, PERRL, EOMI, pale conjunctiva, anicteric, dry mucus membranes, clear oropharynx, no oral lesions.. Neck: neck supple, FROM Resp: CTAB, normal and even respirations, no respiratory distress CVS: RRR, no murmurs, 2+ peripheral pulses throughout, no peripheral edema Abdomen: soft, NTND, no peritoneal signs. Large Anterior vertical abdominal surgical scar. Back: nontender, normal inspection and ROM MSK: no edema, RUIZ x4, ROM intact. No clubbing or cyanosis. normal bulk and tone. Neuro: alert, oriented appropriately to person time and place. no focal neuro deficits. Skin: warm and well perfused, cap refill <2 sec, normal color Past History - Past Medical History Allergies/Adverse Reactions: Allergies Allergy/AdvReac Type Severity Reaction Status Date / Time cephalexin monohydrate Allergy Severe Difficulty Verified 05/16/18 11:46 [From Keflex] Breathing iodine Allergy Severe Hives Verified 05/16/18 11:46 adhesive tape Allergy Mild Verified 05/16/18 11:46 codeine [Codeine] Allergy Mild Itching Verified 05/16/18 11:46 Home Medications: Ambulatory Orders Aspirin [Aspirin EC] 81 mg PO DAILY 08/10/17 Oxycodone HCl 5 mg PO Q6H #20 tablet MDD 4 12/04/17 Atorvastatin Ca [Lipitor] 10 mg PO DAILY 02/09/18 Dextran 70/Hypromellose [Artificial Tears Eye Drops] 15 ml OP QID #1 drops 02/11 Ranitidine HCl 150 mg PO DAILY 02/10/19 Anemia: Yes (NO MEDS) Asthma: No Cancer: No Cardiac Disorders: No CVA: No COPD: Yes CHF: No Dementia: No Diabetes: Yes GI Disorders: Yes (LAP BAND COMPLICATIONS) Disorders: Yes HTN: No Hypercholesterolemia: (on lipitor because of metformin) Liver Disease: No Seizures: No Thyroid Disease: Yes (GRAVES) - Surgical History Abdominal Surgery: Yes (NUMEROUS A RESULT OF LAP BAND COMPLICATIONS) Appendectomy: No Cardiac Surgery: No Cholecystectomy: Yes GI Surgery: Yes (DUODENAL ULCER SX) Lung Surgery: No Neurologic Surgery: No Orthopedic Surgery: Yes (LT KNEE ARTHROSCOPY x2, LT KNEE MENISCAL REPAIR) - Suicide/Smoking/Psychosocial Hx Smoking Status: Yes Smoking History: Former smoker Have you smoked in the past 12 months: No Number of Cigarettes Smoked Daily: 10 If you are a former smoker, when did you quit?: 2005 Hx Alcohol Use: No Drug/Substance Use Hx: No Substance Use Type: None Hx Substance Use Treatment: No Heart Score/ECG Review #1 ECG reviewed & interpreted by me at: 14:20 General ECG Interpretation: Sinus Rhythm, Normal Rate, Normal Intervals 02/10/19 14:32 EKG normal sinus rhythm at 80 bpm, no interval abnormalities, narrow QRS, ST and T wave segments and morphology normal. Nonspecific T wave abnormalities ED Treatment Course - LABORATORY CBC & Chemistry Diagram: 02/10/19 14:45 02/10/19 14:45 Medical Decision Making - Medical Decision Making 02/10/19 14:10 See HPI for details Vital signs reviewed, wnl. normotensive, AAO x3 and at baseline, verbal, follows commands DDx AMS: infection, UTI, metabolic/electrolyte derangement, encephalopathy, dehydration, medication side effect, such as sulfonylurea side effect of recurrent hypoglycemia ACS Prior notes reviewed, including admissions, discharges and consultations. laboratory results and imaging reviewed, basic labs and lytes wnl, notable for normal sugars. repeat FS improved to 80, able to eat UA_positive nitrites, no prior cultures, anticipate E. coli, treat with bactrim , with prior cephalosporin allergy CXR_no acute chest pathology, cardiomegaly, stable compared to prior. Cardiac panel_ EKG normal sinus rhythm at 80 bpm, no interval abnormalities, narrow QRS, ST and T wave segments and morphology normal. Nonspecific T wave abnormalities ED course - given PO meal/caloric intake. glucose here normal, no further episodes of AMS or hypoglycemia. back to baseline status s/o to [employer] and hospitalist service Dr Sultana. Management of the patient with a single episode of hypoglycemia during therapeutic sulfonylurea use by feeding, best route orally, to prevent recurrent hypoglycemia. Intravenous dextrose prn is appropriate to correct symptomatic hypoglycemia, but the role for octreotide is less clear. recommending observation in the hospital for 24 hours. 02/10/19 14:20 02/10/19 14:31 02/10/19 15:55 02/10/19 16:02 02/10/19 16:58 *DC/Admit/Observation/Transfer Diagnosis at time of Disposition: Hypoglycemia, Medication side effect, UTI (urinary tract infection) - Discharge Dispostion Condition at time of disposition: Fair Decision to Admit order: Yes Decision to Admit order Date/Time: 02/10/19 15:55 Decision to Admit Order Category Date Time Status Decision to Admit to Hospital Routine Admission 02/10/19 15:53 Ordered - Referrals - Patient Instructions - Post Discharge Activity
[2019-02-10 14:16] VITALS: BMI 42.7
[2019-02-10 15:37] LABS: BASO % 0.4 % (0-2.0); EOS % 2.1 % (0-4.5); HEMATOCRIT 35.9 % (32.4-45.2); HEMOGLOBIN 11.3 GM/dl (10.7-15.3); LYMPH % 12.1 % (8-40); MCH 26.4 pg (25.7-33.7); MCHC 31.4 g/dl (32.0-36.0); MEAN CELL VOLUME 84.1 fl (80-96); MEAN PLT VOLUME 9.1 fl (7.5-11.1); MONO % 5.2 % (3.8-10.2); NEUT % 80.2 % (42.8-82.8); PLATELET COUNT 138 K/MM3 (134-434); RBC 4.26 M/mm3 (3.60-5.2); RDW 18.2 % (11.6-15.6); WHITE BLOOD COUNT 6.9 K/mm3 (4.0-10.8)
[2019-02-10 15:41] LABS: ALBUMIN 3.6 g/dl (3.4-5.0); ALK PHOS 77 U/L (45-117); ANION GAP 13 MMOL/L (8-16); BILIRUBIN,TOTAL 0.4 mg/dl (0.2-1); BLOOD UREA NITROGEN 19 mg/dl (7-18); CALCIUM 8.5 mg/dl (8.5-10); CHLORIDE 107 mmol/L (98-107); CO2 22 mmol/L (21-32); CREATININE 0.6 mg/dl (0.55-1.3); GLUCOSE,RANDOM 114 mg/dl (74-106); POTASSIUM 3.7 mmol/L (3.5-5.1); SGOT/AST 21 U/L (15-37); SGPT/ALT 13 U/L (13-61); SODIUM 142 mmol/L (136-145); TOT PROT 6.6 g/dl (6.4-8.2)
[2019-02-10] MEDS ORDERED: PATIENT'S OWN MEDICATION (NON-FORMULARY) (Omeprazole [Omeprazole] 40 MG) PO PRN (16:06)
[2019-02-10] MEDS ORDERED: PATIENT'S OWN MEDICATION (NON-FORMULARY) (Meloxicam 15 MG) PO PRN (16:06)
[2019-02-10] MEDS ORDERED: SODIUM CHLORIDE 1,000 ML IV SCH (16:30)
--- NOTE | 2019-02-10 16:51 | HP ---
CHIEF COMPLAINT: frequent falls, low blood sugars PCP:Dr. Allen HISTORY OF PRESENT ILLNESS: 67 yo F with h/o DM, former smoker, [place] palsy, hypothyroidism, HTN, HLD, anemia, hernias, lap band s/p removal, chronic UTIs, degenerative disc disease/ chronic back pain BIB EMS presenting with AMS and recurrent hypoglycemia down to 30s today. She had confusion, dizziness prior to hypoglycemia episode today. EMS given oral glucose x2, D10 100cc with improvement with FS up to 76. Now back to baseline status, no complaints currently, +chronic back pain. Last treated for UTI last month with abx, improved; chronically with UTI sx including dysuria and increased urination and frequency and feels she may have UTI. pt has been experiencing frequent falls x 3 episodes over the past one month. all preceded by dizziness episodes and probable hypoglycemia. Most recent falls were yesterday at home and today at her sisters place where she had the episode of AMS and hypoglycemia. Denies trauma. She admits to eating a normal diet, did eat a salad earlier this morning. She does not check her blood sugars regularly. reports checking 1-2x/week. She is on pioglitizone, glipizide and metformin pt seen in ED, no confusion noted, alert, on cell phone, sister present, pt reports having chronic UTI symptoms, has been on antibiotics, with no improvement, was recommended to see a Urologist, pt has not made an apt yet. ER course was notable for: (1) Lactic 3.3 (2) (3) Recent Travel:denies PAST MEDICAL HISTORY:DM, former smoker, [place] palsy, hypothyroidism, HTN, HLD, anemia, hernias, lap band s/p removal, chronic UTIs, degenerative disc disease/ chronic back pain PAST SURGICAL HISTORY:abdominal surgeries, lap band, wound vac, hernia repair Social History: Smoking:former smoker Alcohol:denies Drugs: denies Family History: Allergies cephalexin monohydrate [From Keflex] Allergy (Severe, Verified 05/16/18 11:46) Difficulty Breathing and hives iodine Allergy (Severe, Verified 05/16/18 11:46) Hives adhesive tape Allergy (Mild, Verified 05/16/18 11:46) blisters codeine [Codeine] Allergy (Mild, Verified 05/16/18 11:46) Itching and confusion HOME MEDICATIONS: Home Medications Medication Instructions Recorded Aspirin [Aspirin EC] 81 mg PO DAILY 08/10/17 Oxycodone HCl 5 mg PO Q6H #20 tablet MDD 4 12/04/17 Atorvastatin Ca [Lipitor] 10 mg PO DAILY 02/09/18 Dextran 70/Hypromellose 15 ml OP QID #1 drops 02/11/18 [Artificial Tears Eye Drops] Ranitidine HCl 150 mg PO DAILY 02/10/19 REVIEW OF SYSTEMS CONSTITUTIONAL: Absent: fever, chills, diaphoresis, generalized weakness, malaise, loss of appetite, weight change HEENT: Absent: rhinorrhea, nasal congestion, throat pain, throat swelling, difficulty swallowing, mouth swelling, ear pain, eye pain, visual changes CARDIOVASCULAR: Absent: chest pain, syncope, palpitations, irregular heart rate, lightheadedness , peripheral edema RESPIRATORY: Absent: cough, shortness of breath, dyspnea with exertion, orthopnea, wheezing, stridor, hemoptysis GASTROINTESTINAL: Absent: abdominal pain, abdominal distension, nausea, vomiting, diarrhea, constipation, melena, hematochezia GENITOURINARY: Absent: dysuria, frequency, urgency, hesitancy, hematuria, flank pain, genital pain MUSCULOSKELETAL: Absent: myalgia, arthralgia, joint swelling, back pain, neck pain SKIN: Absent: rash, itching, pallor HEMATOLOGIC/IMMUNOLOGIC: Absent: easy bleeding, easy bruising, lymphadenopathy, frequent infections ENDOCRINE: Absent: unexplained weight gain, unexplained weight loss, heat intolerance, cold intolerance NEUROLOGIC: Absent: headache, focal weakness or paresthesias, dizziness, unsteady gait, seizure, mental status changes, bladder or bowel incontinence PSYCHIATRIC: Absent: anxiety, depression, suicidal or homicidal ideation, hallucinations. PHYSICAL EXAMINATION Vital Signs - 24 hr 02/10/19 02/10/19 02/10/19 13:39 14:30 15:45 Temperature 97.8 F 97.8 F Pulse Rate 73 Pulse Rate [ 88 98 H Apical] Respiratory 18 20 18 Rate Blood Pressure 110/70 Blood Pressure 134/70 [Left Arm] Blood Pressure 114/70 [Right Arm] O2 Sat by Pulse 100 98 98 Oximetry (%) GENERAL: Awake, alert, and fully oriented, in no acute distress. HEAD: Normal with no signs of trauma. EYES: Pupils equal, round and reactive to light, extraocular movements intact, sclera anicteric, conjunctiva clear. No lid lag. EARS, NOSE, THROAT: Ears normal, nares patent, oropharynx clear without exudates. Moist mucous membranes. NECK: Normal range of motion, supple without lymphadenopathy, JVD, or masses. LUNGS: Breath sounds equal, clear to auscultation bilaterally. No wheezes, and no crackles. No accessory muscle use. HEART: Regular rate and rhythm, normal S1 and S2 without murmur, rub or gallop. ABDOMEN: Soft, nontender, not distended, normoactive bowel sounds, no guarding, no rebound, no masses. No hepatomegaly or splenomegaly. MUSCULOSKELETAL: Normal range of motion at all joints. No bony deformities or tenderness. No CVA tenderness. UPPER EXTREMITIES: 2+ pulses, warm, well-perfused. No cyanosis. No clubbing. No peripheral edema. LOWER EXTREMITIES: 2+ pulses, warm, well-perfused. No calf tenderness. No peripheral edema. NEUROLOGICAL: Cranial nerves II-XII intact. Normal speech. Normal gait. PSYCHIATRIC: Cooperative. Good eye contact. Appropriate mood and affect. SKIN: Warm, dry, normal turgor, no rashes or lesions noted, normal capillary refill. Laboratory Results - last 24 hr 02/10/19 02/10/19 02/10/19 14:03 14:45 14:45 WBC 6.9 RBC 4.26 Hgb 11.3 Hct 35.9 MCV 84.1 MCH 26.4 MCHC 31.4 L RDW 18.2 H D Plt Count 138 MPV 9.1 Absolute Neuts (auto) 5.6 Neutrophils % 80.2 Lymphocytes % 12.1 Monocytes % 5.2 Eosinophils % 2.1 Basophils % 0.4 Sodium 142 Potassium 3.7 Chloride 107 Carbon Dioxide 22 Anion Gap 13 BUN 19 H Creatinine 0.6 Creat Clearance w eGFR 99.12 POC Glucometer 80 Random Glucose 114 H Lactic Acid Calcium 8.5 Total Bilirubin 0.4 AST 21 ALT 13 Alkaline Phosphatase 77 Total Protein 6.6 Albumin 3.6 02/10/19 14:45 WBC RBC Hgb Hct MCV MCH MCHC RDW Plt Count MPV Absolute Neuts (auto) Neutrophils % Lymphocytes % Monocytes % Eosinophils % Basophils % Sodium Potassium Chloride Carbon Dioxide Anion Gap BUN Creatinine Creat Clearance w eGFR POC Glucometer Random Glucose Lactic Acid 3.3 H* Calcium Total Bilirubin AST ALT Alkaline Phosphatase Total Protein Albumin ASSESSMENT/PLAN: 67 yo F with h/o DM, former smoker, [place] palsy, hypothyroidism, HTN, HLD, anemia, hernias, lap band s/p removal, chronic UTIs, degenerative disc disease/ chronic back pain admitted under observation for Admitting Diagnosis Hypoglycemia Chronic Problems UTI, chronic DM [place] Palsy Hypothyroidism HTN HLD Anemia DJD, chronic back pain #Hypoglycemia #Frequent Falls -in ED checked 80 -monitor FS q4hrs today -hold po meds (actos, metformin, glipzide) -diabetic diet -a1c ordered -PT eval #UTI, chronic, no sepsis -afebrile, no leukocytosis -lactic 3.3, no clinical sign of sepsis -repeat lactic ordered for tonight -IVF -will start po bactrim -urine cx collected -Urology consult as outpatient #[place] Palsy -on eye drops #HTN #HLD -on statin -no BP meds noted #Chronic back pain, DJD -on chronic pain meds Full Code Visit type - Emergency Visit Emergency Visit: Yes Care time: The patient presented to the Emergency Department on the above date and was hospitalized for further evaluation of their emergent condition. - New Patient This patient is new to me today: Yes Date on this admission: 02/10/19 - Critical Care Critical Care patient: No
[2019-02-10 16:52] LABS: EPITHELIAL CELLS FEW /hpf
[2019-02-10] MEDS: SULFAMETHOXAZOLE/TRIMETHOPRIM 800MG/160MG D.S. TABLET PO SCH (17:32)
[2019-02-10] MEDS ORDERED: PNEUMOC 13-VAL CONJ-DIP CRM/PF 0.5 ML DISP.SYRIN IM ONE (17:49)
[2019-02-10] MEDS: oxyCODONE HCL 5 MG TABLET PO PRN (18:29)
--- NOTE | 2019-02-10 20:40 | PN ---
Progress Note (short form) - Note Progress Note: advised to see her bc she is having hypoglycemia and it is recurrent she was taking home glipizid vs stable she is alert and awake plan she is already off glipizide lets start on dextrose water for next 24 hrs for hypoglycemia
[2019-02-10] MEDS ORDERED: DEXTROSE 5%-WATER - 1,000 ML IV SCH (20:45)
[2019-02-10] MEDS: ARTIFICIAL TEARS (POLYVINYL ALCOHOL) OPTH DROPS OU SCH (21:55)
[2019-02-10] MEDS: HEPARIN NA (PORCINE) 5,000 UNITS/ML 1ML VIAL SQ SCH (21:56)
[2019-02-10] MEDS: ATORVASTATIN CA 10 MG TABLET (FP) PO SCH (21:56)
[2019-02-11] MEDS: oxyCODONE HCL 5 MG TABLET PO PRN ×4 (02:34→21:07)
[2019-02-11] MEDS ORDERED: DEXTROSE 5%-WATER - 1,000 ML IV SCH (04:40)
[2019-02-11] MEDS ORDERED: DEXTROSE 50%-WATER - 25 GM/50 ML VIAL IVPUSH ONE (04:40)
--- NOTE | 2019-02-11 04:50 | HOSP ---
Subjective - Review of Symptoms Events since last encounter: Patient found to have fingerstick 30 while receiving D5W@42cc/hr. She is asymptomatic. Physical Examination Vital Signs: Vital Signs Temperature 98.1 F 02/11/19 01:33 Pulse Rate 83 02/11/19 01:33 Respiratory Rate 19 02/11/19 01:33 Blood Pressure 127/60 02/11/19 01:33 O2 Sat by Pulse Oximetry (%) 96 02/10/19 22:00 Labs: CBC, BMP 02/10/19 14:45 02/10/19 14:45 Hospitalist Encounter Recommendations/Interventions: Will give 1 amp D50 IVP and increase IV D5W to 60cc/hr.
--- NOTE | 2019-02-11 05:50 | PN ---
Physical Exam: SUBJECTIVE: Patient seen and examined at bedside. Agitated. Loudly demanding a regular diet, with ice cream and salt, plenty of salt. OBJECTIVE: Vital Signs Period Temp Pulse Resp BP Sys/Gillette Pulse Ox Last 24 Hr 97.8 F-98.5 F 73-98 18-20 110-138/57-74 95-100 GENERAL: The patient is awake, alert, and fully oriented, in no acute distress. LUNGS: Breath sounds equal, clear to auscultation bilaterally, no wheezes, no crackles, no accessory muscle use. HEART: Regular rate and rhythm, S1, S2 without murmur, rub or gallop. ABDOMEN: Soft, nontender, nondistended, normoactive bowel sounds, no guarding, no rebound, no hepatosplenomegaly, no masses. EXTREMITIES: 2+ pulses, warm, well-perfused, no edema. NEUROLOGICAL: Cranial nerves II through XII grossly intact. Normal speech, positions easily. PSYCH: Irritable Laboratory Results - last 24 hr 02/10/19 02/10/19 02/10/19 14:03 14:45 14:45 WBC 6.9 RBC 4.26 Hgb 11.3 Hct 35.9 MCV 84.1 MCH 26.4 MCHC 31.4 L RDW 18.2 H D Plt Count 138 MPV 9.1 Absolute Neuts (auto) 5.6 Neutrophils % 80.2 Lymphocytes % 12.1 Monocytes % 5.2 Eosinophils % 2.1 Basophils % 0.4 Sodium 142 Potassium 3.7 Chloride 107 Carbon Dioxide 22 Anion Gap 13 BUN 19 H Creatinine 0.6 Creat Clearance w eGFR 99.12 POC Glucometer 80 Random Glucose 114 H Hemoglobin A1c % Lactic Acid Calcium 8.5 Total Bilirubin 0.4 AST 21 ALT 13 Alkaline Phosphatase 77 Total Protein 6.6 Albumin 3.6 Urine Color Urine Appearance Urine pH Urine Protein Urine Glucose (UA) Urine Ketones Urine Blood Urine Nitrite Urine Bilirubin Urine Urobilinogen Ur Leukocyte Esterase Urine RBC Urine WBC Ur Transition Epith Cell Urine Bacteria 02/10/19 02/10/19 02/10/19 14:45 15:40 16:33 WBC RBC Hgb Hct MCV MCH MCHC RDW Plt Count MPV Absolute Neuts (auto) Neutrophils % Lymphocytes % Monocytes % Eosinophils % Basophils % Sodium Potassium Chloride Carbon Dioxide Anion Gap BUN Creatinine Creat Clearance w eGFR POC Glucometer 144 Random Glucose Hemoglobin A1c % Lactic Acid 3.3 H* Calcium Total Bilirubin AST ALT Alkaline Phosphatase Total Protein Albumin Urine Color Yellow Urine Appearance Sl cloudy Urine pH 5.5 Urine Protein Negative Urine Glucose (UA) Negative Urine Ketones Negative Urine Blood Trace-intact Urine Nitrite Positive H Urine Bilirubin Negative Urine Urobilinogen 0.2 Ur Leukocyte Esterase 1+ Urine RBC 2-5 Urine WBC 40-60 Ur Transition Epith Cell Few Urine Bacteria Moderate 02/10/19 02/10/19 02/10/19 20:25 21:15 21:15 WBC RBC Hgb Hct MCV MCH MCHC RDW Plt Count MPV Absolute Neuts (auto) Neutrophils % Lymphocytes % Monocytes % Eosinophils % Basophils % Sodium Potassium Chloride Carbon Dioxide Anion Gap BUN Creatinine Creat Clearance w eGFR POC Glucometer 63 Random Glucose Hemoglobin A1c % 4.9 Lactic Acid 1.9 Calcium Total Bilirubin AST ALT Alkaline Phosphatase Total Protein Albumin Urine Color Urine Appearance Urine pH Urine Protein Urine Glucose (UA) Urine Ketones Urine Blood Urine Nitrite Urine Bilirubin Urine Urobilinogen Ur Leukocyte Esterase Urine RBC Urine WBC Ur Transition Epith Cell Urine Bacteria 02/10/19 02/11/19 02/11/19 23:46 04:31 05:29 WBC RBC Hgb Hct MCV MCH MCHC RDW Plt Count MPV Absolute Neuts (auto) Neutrophils % Lymphocytes % Monocytes % Eosinophils % Basophils % Sodium Potassium Chloride Carbon Dioxide Anion Gap BUN Creatinine Creat Clearance w eGFR POC Glucometer 109 30 91 Random Glucose Hemoglobin A1c % Lactic Acid Calcium Total Bilirubin AST ALT Alkaline Phosphatase Total Protein Albumin Urine Color Urine Appearance Urine pH Urine Protein Urine Glucose (UA) Urine Ketones Urine Blood Urine Nitrite Urine Bilirubin Urine Urobilinogen Ur Leukocyte Esterase Urine RBC Urine WBC Ur Transition Epith Cell Urine Bacteria Active Medications Generic Name Dose Route Start Last Admin Trade Name Freq PRN Reason Stop Dose Admin Artificial Tears 1 drop 02/10/19 18:00 02/10/19 21:55 Artificial Tears OU 1 drop QID JOSIAH Administration Aspirin 81 mg 02/11/19 10:00 Ecotrin - PO DAILY JOSIAH Atorvastatin Calcium 10 mg 02/10/19 22:00 02/10/19 21:56 Lipitor - PO 10 mg HS JOSIAH Administration Dextrose 25 gm 02/11/19 04:40 02/11/19 04:40 D50w (Vial) - IVPUSH 02/11/19 04:41 25 gm NOW ONE Administration Heparin Sodium (Porcine) 5,000 unit 02/10/19 22:00 02/10/19 21:56 Heparin - SQ 5,000 unit BID JOSIAH Administration Dextrose 1,000 mls @ 60 mls/hr 02/11/19 04:40 D5w - IV [id number] [facility] Levothyroxine Sodium 200 mcg 02/11/19 07:00 Synthroid - PO ACBK [facility] Loratadine 10 mg 02/11/19 10:00 Claritin - PO DAILY [facility] Oxybutynin Chloride 10 mg 02/11/19 10:00 Ditropan - PO DAILY [facility] Oxycodone HCl 5 mg 02/10/19 16:45 02/11/19 02:34 Roxicodone - PO 5 mg Q6H PRN Administration PAIN SCALE 1-5 Pantoprazole Sodium 40 mg 02/11/19 10:00 Protonix - PO DAILY [facility] Pneumococcal 13-Valent Conj Vacc 0.5 ml 02/10/19 18:45 Prevnar 13 Syringe - IM 02/10/19 18:46 .ONCE ONE Ranitidine HCl 150 mg 02/11/19 10:00 Zantac - PO DAILY [facility] Trimethoprim/Sulfamethoxazole 1 each 02/10/19 16:45 02/10/19 17:32 Bactrim Ds - PO 1 each DAILY [facility] Administration ASSESSMENT/PLAN 67 year-old female with a PMH significant for HTN, HLD, NIDDM, and multiple abdominal surgeries. Admitted for severe, refractory hypoglycemia. Type II NIDDM --sugars remain low despite eating regular diet, D5@60mL/hr --holding oral diabetics --endocrine consult Hypertension --BP stable --not on anti-hypertensives UTI --UA 40-60 WBCs, +leuks, +nitrites --empiric Bactrim PO --culture pending Hypomagnesemia --repleted FEN Fluids: D5@60mL/hr Electrolytes: replete as indicated Nutrition: regular diet DVT prophylaxis: subq heparin Dispo: continues to require inpatient care. Full code. Visit type - Emergency Visit Emergency Visit: Yes ED Registration Date: 02/11/19 Care time: The patient presented to the Emergency Department on the above date and was hospitalized for further evaluation of their emergent condition. - New Patient This patient is new to me today: Yes Date on this admission: 02/11/19 - Critical Care Critical Care patient: No
[2019-02-11] MEDS ORDERED: LEVOTHYROXINE NA 200 MCG TABLET PO SCH (07:00)
[2019-02-11 07:51] LABS: BASO % 0.7 % (0-2.0); EOS % 5.2 % (0-4.5); HEMATOCRIT 32.7 % (32.4-45.2); LYMPH % 23.6 % (8-40); MCH 25.3 pg (25.7-33.7); MCHC 30.6 g/dl (32.0-36.0); MEAN CELL VOLUME 82.8 fl (80-96); MONO % 9.6 % (3.8-10.2); NEUT % 60.9 % (42.8-82.8); PLATELET COUNT 150 K/MM3 (134-434); RBC 3.95 M/mm3 (3.60-5.2); RDW 17.9 % (11.6-15.6); WHITE BLOOD COUNT 5.8 K/mm3 (4.0-10.8)
[2019-02-11 07:55] LABS: ALBUMIN 3.2 g/dl (3.4-5.0); ALK PHOS 64 U/L (45-117); ANION GAP 8 MMOL/L (8-16); BILIRUBIN,TOTAL 0.5 mg/dl (0.2-1); BLOOD UREA NITROGEN 16 mg/dl (7-18); CALCIUM 8.5 mg/dl (8.5-10); CHLORIDE 105 mmol/L (98-107); CO2 26 mmol/L (21-32); CREATININE 0.8 mg/dl (0.55-1.3); GLUCOSE,RANDOM 74 mg/dl (74-106); MAGNESIUM 1.6 mg/dL (1.8-2.4); POTASSIUM 3.9 mmol/L (3.5-5.1); SGOT/AST 15 U/L (15-37); SGPT/ALT 12 U/L (13-61); SODIUM 139 mmol/L (136-145); TOT PROT 5.7 g/dl (6.4-8.2)
[2019-02-11 08:46] LABS: ADD RBC MORPHOLOGY YES
[2019-02-11] MEDS ORDERED: PT OWN MED DRAWER 7, Y5N ONE (09:02)
[2019-02-11] MEDS: ARTIFICIAL TEARS (POLYVINYL ALCOHOL) OPTH DROPS OU SCH ×2 (09:06→21:08)
[2019-02-11] MEDS: HEPARIN NA (PORCINE) 5,000 UNITS/ML 1ML VIAL SQ SCH ×2 (09:06→21:07)
[2019-02-11] MEDS: ASPIRIN COATED 81 MG TABLET.EC PO SCH (09:06)
[2019-02-11] MEDS: LORATADINE 10 MG TABLET PO SCH (09:06)
[2019-02-11] MEDS: PANTOPRAZOLE 40 MG TABLET (FP) PO SCH (09:06)
[2019-02-11] MEDS: SULFAMETHOXAZOLE/TRIMETHOPRIM 800MG/160MG D.S. TABLET PO SCH (09:06)
[2019-02-11] MEDS ORDERED: RANITIDINE HCL 150 MG TABLET (FP) PO SCH ×2 (10:00)
[2019-02-11] MEDS ORDERED: OXYBUTYNIN CHLORIDE 5 MG TABLET PO SCH (10:00)
[2019-02-11 10:17] LABS: ANISOCYTOSIS 1+
[2019-02-11] MEDS ORDERED: MAGNESIUM SULF 50% (8.12 MEQ/2 ML-1 GM VIAL) IVPB ONE (10:53)
[2019-02-11] MEDS ORDERED: MAGNESIUM SULFATE IN WATER 2 GM/50 ML IVPB IVPB ONE (11:00)
[2019-02-11] MEDS ORDERED: PNEUMOC 13-VAL CONJ-DIP CRM/PF 0.5 ML DISP.SYRIN IM ONE (11:00)
[2019-02-11 13:45] LABS: EPITHELIAL CELLS RARE /hpf
--- NOTE | 2019-02-11 15:36 | EKG ---
Test Reason : Blood Pressure : / mmHG Vent. Rate : 080 BPM Atrial Rate : 080 BPM P-R Int : 170 ms QRS Dur : 100 ms QT Int : 398 ms P-R-T Axes : -25 020 033 degrees QTc Int : 459 ms NORMAL SINUS RHYTHM INCOMPLETE RIGHT BUNDLE BRANCH BLOCK BORDERLINE ECG WHEN COMPARED WITH ECG OF 16-MAY-2018 12:40, VENT. RATE HAS DECREASED Confirmed by CONNIE REDDY MD ([id number]) on 02/11/2019 3:36:51 PM Referred By: JADEN MUKHERJEE Confirmed By:CONNIE REDDY MD
[2019-02-11] MEDS: INSULIN SLIDING SCALE (NOVOLOG) 1 VIAL SQ SCH ×2 (17:38→21:25)
[2019-02-11] MEDS: ATORVASTATIN CA 10 MG TABLET (FP) PO SCH (21:07)
[2019-02-11] MEDS ORDERED: PATIENT'S OWN MEDICATION (NON-FORMULARY) (Ranitidine Hcl [Zantac] 300 MG) PO SCH (22:00)
[2019-02-11] MEDS: OXYBUTYNIN CHLORIDE 5 MG TABLET PO SCH (22:38)
[2019-02-12] MEDS: oxyCODONE HCL 5 MG TABLET PO PRN ×2 (05:27→17:42)
[2019-02-12] MEDS: LEVOTHYROXINE NA 100 MCG TABLET (FP) PO SCH (06:14)
[2019-02-12] MEDS: INSULIN SLIDING SCALE (NOVOLOG) 1 VIAL SQ SCH ×4 (06:46→21:30)
--- NOTE | 2019-02-12 08:46 | CONSULT ---
Consult Consult Specialty:: Endocrinology Referred by:: Marta Dowd NP Reason for Consultation:: Hypoglycemia - History of Present Illness Chief Complaint: Hypoglycemia History of Present Illness: This is a 67 yo F with h/o T2DM for >20 years, not on Insulin, former smoker, Carmel palsy, hypothyroidism, HTN, HLD, anemia, hernias, lap band s/p removal, chronic UTIs, degenerative disc disease/chronic back pain BIB EMS presenting with AMS and recurrent hypoglycemia down to 30s on day of admission. She had confusion, dizziness prior to hypoglycemia episode today. EMS given oral glucose x2, D10 100cc with improvement with FS up to 76. Pt has taken her usual mediacation, Glipizide, Metformin and Actos at around 6 AM as she usually did. pt has been experiencing frequent falls x 3 episodes over the past one month. She took antidiabetic medication in the morning around 6 oclock as usual and eat a salad in this morning. She does not check her blood sugars regularly. Says FS usually 100 to 200. No previous h/o admission for hypoglycemia. Pt had episode of hypoglycemia during the night in the hospital. - History Source History Provided By: Patient, Medical Record - Past Medical History ...: No Endocrine: Yes: Diabetes Mellitus, Hypothyroidism - Alcohol/Substance Use Hx Alcohol Use: No - Smoking History Smoking history: Former smoker Have you smoked in the past 12 months: No Aproximately how many cigarettes per day: 10 If you are a former smoker, when did you quit?: 2005 Home Medications - Allergies Allergies/Adverse Reactions: Allergies Allergy/AdvReac Type Severity Reaction Status Date / Time cephalexin monohydrate Allergy Severe Difficulty Verified 05/16/18 11:46 [From Keflex] Breathing iodine Allergy Severe Hives Verified 05/16/18 11:46 adhesive tape Allergy Mild Verified 05/16/18 11:46 codeine [Codeine] Allergy Mild Itching Verified 05/16/18 11:46 - Home Medications Home Medications: Ambulatory Orders Aspirin [Aspirin EC] 81 mg PO DAILY 08/10/17 Oxycodone HCl 5 mg PO Q6H #20 tablet MDD 4 12/04/17 Atorvastatin Ca [Lipitor] 10 mg PO DAILY 02/09/18 Dextran 70/Hypromellose [Artificial Tears Eye Drops] 15 ml OP QID #1 drops 02/11 Cholecalciferol (Vitamin D3) [D] 2,000 unit PO DAILY 02/10/19 Glipizide [Glipizide ER] 10 mg PO DAILY 02/10/19 Levothyroxine [Synthroid -] 175 mcg PO ASDIR 02/10/19 Ranitidine HCl 150 mg PO DAILY 02/10/19 Ranitidine HCl [Zantac] 300 mg PO HS 02/10/19 Review of Systems - Review of Systems Constitutional: reports: No Symptoms Eyes: reports: No Symptoms HENT: reports: No Symptoms Neck: reports: No Symptoms Cardiovascular: reports: No Symptoms Respiratory: reports: No Symptoms Gastrointestinal: reports: No Symptoms Genitourinary: reports: Frequency Musculoskeletal: reports: No Symptoms Integumentary: reports: No Symptoms Neurological: reports: No Symptoms Physical Exam Vital Signs: Vital Signs Temperature 97.6 F 02/12/19 06:00 Pulse Rate 81 02/12/19 06:00 Respiratory Rate 20 02/12/19 06:00 Blood Pressure 137/63 02/12/19 06:00 O2 Sat by Pulse Oximetry (%) 95 02/12/19 06:00 Constitutional: Yes: No Distress, Calm Eyes: Yes: Conjunctiva Clear, EOM Intact HENT: Yes: Atraumatic, Normocephalic Neck: Yes: Supple, Trachea Midline Cardiovascular: Yes: Regular Rate and Rhythm Respiratory: Yes: Regular, CTA Bilaterally Gastrointestinal: Yes: Normal Bowel Sounds, Soft Extremities: Yes: WNL Edema: No Neurological: Yes: Alert, Oriented Labs: CBC, BMP 02/11/19 07:00 Assessment/Plan AP: T2DM: Hypoglycemia: Probably secondary to taking Glipizide with no food Hypothyroidism H/O Dickens's Palsy Discussed mechanism of action of the diabetes meds she is taken. Discussed need to eat within 15 minutes of taking Glipizide to prevent hypoglycemia. Pt verbalizes understanding. Discussed option of taking other antidiabetic meds like GLP1 or SGLT2s what do not cause hypoglycemia if not takin with sulfonylureas or Insulin. Pt wants to think about it. BGM Q4 hr Novolog SS coverage Start Metformin 500mg BID Nutrtition conult. Will F/u
[2019-02-12 09:28] LABS: ANION GAP 8 MMOL/L (8-16); BLOOD UREA NITROGEN 22 mg/dl (7-18); CALCIUM 8.6 mg/dl (8.5-10); CHLORIDE 104 mmol/L (98-107); CO2 26 mmol/L (21-32); CREATININE 0.8 mg/dl (0.55-1.3); GLUCOSE,RANDOM 134 mg/dl (74-106); MAGNESIUM 1.8 mg/dL (1.8-2.4); POTASSIUM 4.2 mmol/L (3.5-5.1); SODIUM 138 mmol/L (136-145)
[2019-02-12] MEDS ORDERED: OXYBUTYNIN CHLORIDE 5 MG TABLET PO SCH (10:00)
[2019-02-12] MEDS ORDERED: MICONAZOLE NITRATE 14 GM/TUBE TUBE TP SCH (10:00)
[2019-02-12] MEDS: ARTIFICIAL TEARS (POLYVINYL ALCOHOL) OPTH DROPS OU SCH ×5 (10:09→21:44)
[2019-02-12] MEDS: HEPARIN NA (PORCINE) 5,000 UNITS/ML 1ML VIAL SQ SCH ×2 (10:11→21:45)
[2019-02-12] MEDS: OXYBUTYNIN CHLORIDE 5 MG TABLET PO SCH ×2 (10:12→21:44)
[2019-02-12] MEDS: PANTOPRAZOLE 40 MG TABLET (FP) PO SCH (10:12)
[2019-02-12] MEDS: LORATADINE 10 MG TABLET PO SCH (10:12)
[2019-02-12] MEDS: ASPIRIN COATED 81 MG TABLET.EC PO SCH (10:12)
[2019-02-12] MEDS: SULFAMETHOXAZOLE/TRIMETHOPRIM 800MG/160MG D.S. TABLET PO SCH (10:12)
--- NOTE | 2019-02-12 10:33 | PN ---
Physical Exam: SUBJECTIVE: Patient seen and examined sitting on edge of bed. Calmer today, conversational. OBJECTIVE: Vital Signs Period Temp Pulse Resp BP Sys/Gillette Pulse Ox Last 24 Hr 97.6 F-98.2 F 58-93 18-20 125-147/57-72 95-96 GENERAL: The patient is awake, alert, and fully oriented, in no acute distress. LUNGS: Breath sounds equal, clear to auscultation bilaterally, no wheezes, no crackles, no accessory muscle use. HEART: Regular rate and rhythm, S1, S2 without murmur, rub or gallop. ABDOMEN: Soft, nontender, nondistended, normoactive bowel sounds, no guarding, no rebound, no hepatosplenomegaly, no masses. EXTREMITIES: 2+ pulses, warm, well-perfused, no edema. NEUROLOGICAL: Cranial nerves II through XII grossly intact. Normal speech, positions easily. Laboratory Results - last 24 hr 02/11/19 02/11/19 02/11/19 09:34 10:55 15:57 Sodium Potassium Chloride Carbon Dioxide Anion Gap BUN Creatinine Creat Clearance w eGFR POC Glucometer 69 183 Random Glucose Calcium Magnesium Urine Color Yellow Urine Appearance Clear Urine pH 6.0 Urine Protein Negative Urine Glucose (UA) Negative Urine Ketones Negative Urine Blood Trace-lysed Urine Nitrite Negative Urine Bilirubin Negative Urine Urobilinogen 0.2 Ur Leukocyte Esterase 2+ Urine RBC 0-2 Urine WBC 10-20 Ur Transition Epith Cell Rare 02/11/19 02/12/19 02/12/19 21:11 06:38 08:32 Sodium 138 Potassium 4.2 Chloride 104 Carbon Dioxide 26 Anion Gap 8 BUN 22 H Creatinine 0.8 Creat Clearance w eGFR 71.12 POC Glucometer 162 147 Random Glucose 134 H Calcium 8.6 Magnesium 1.8 Urine Color Urine Appearance Urine pH Urine Protein Urine Glucose (UA) Urine Ketones Urine Blood Urine Nitrite Urine Bilirubin Urine Urobilinogen Ur Leukocyte Esterase Urine RBC Urine WBC Ur Transition Epith Cell Active Medications Generic Name Dose Route Start Last Admin Trade Name Freq PRN Reason Stop Dose Admin Artificial Tears 1 drop 02/10/19 18:00 02/12/19 10:09 Artificial Tears OU Not Given QID JOSIAH Aspirin 81 mg 02/11/19 10:00 02/12/19 10:12 Ecotrin - PO 81 mg DAILY JOSIAH Administration Atorvastatin Calcium 10 mg 02/10/19 22:00 02/11/19 21:07 Lipitor - PO 10 mg HS JSOIAH Administration Heparin Sodium (Porcine) 5,000 unit 02/10/19 22:00 02/12/19 10:11 Heparin - SQ 5,000 unit BID JOSIAH Administration Insulin Aspart 1 vial 02/11/19 16:30 02/12/19 06:46 Novolog Vial Sliding Scale - SQ Not Given ACHS [facility] Protocol Levothyroxine Sodium 200 mcg 02/12/19 07:00 02/12/19 06:14 Synthroid - PO 200 mcg ACBK JOSIAH Administration Loratadine 10 mg 02/11/19 10:00 02/12/19 10:12 Claritin - PO 10 mg DAILY JOSIA[facility] Administration Miconazole Nitrate 1 applic 02/12/19 10:00 Monistat Topical Cream - TP BID [facility] Oxybutynin Chloride 5 mg 02/11/19 22:00 02/12/19 10:12 Ditropan - PO 5 mg BID JOSIAH Administration Oxycodone HCl 5 mg 02/10/19 16:45 02/12/19 05:27 Roxicodone - PO 5 mg Q6H PRN Administration PAIN SCALE 1-5 Pantoprazole Sodium 40 mg 02/11/19 10:00 02/12/19 10:12 Protonix - PO 40 mg DAILY [facility]OSIA[facility] Administration Trimethoprim/Sulfamethoxazole 1 each 02/10/19 16:45 02/12/19 10:12 Bactrim Ds - PO 1 each DAILY [facility] Administration ASSESSMENT/PLAN 67 year-old female with a PMH significant for HTN, HLD, NIDDM, and multiple abdominal surgeries. Admitted for severe, refractory hypoglycemia. Type II NIDDM --sugars have evened out, no episodes of severe hypoglycemia --Novolog sliding scale coverage --seen and evaluated by endocrine: send home on Actos and metformin Hypertension --BP stable --not on anti-hypertensives UTI --UA 40-60 WBCs, +leuks, +nitrites; culture contaminated --empiric Bactrim PO Hypomagnesemia, resolved FEN Fluids: PO intake adequate Electrolytes: replete as indicated Nutrition: regular diet DVT prophylaxis: subq heparin Dispo: continues to require inpatient care. Full code. Visit type - Emergency Visit Emergency Visit: Yes ED Registration Date: 02/11/19 Care time: The patient presented to the Emergency Department on the above date and was hospitalized for further evaluation of their emergent condition. - New Patient This patient is new to me today: No - Critical Care Critical Care patient: No
[2019-02-12] MEDS: MICONAZOLE NITRATE 14 GM/TUBE TUBE TP SCH ×2 (13:36→21:45)
[2019-02-12] MEDS ORDERED: INSULIN (NOVOLOG) ASPART 100 UNITS/ML 10ML VIAL ONE (16:40)
[2019-02-12] MEDS: ATORVASTATIN CA 10 MG TABLET (FP) PO SCH (21:44)
[2019-02-13] MEDS: INSULIN SLIDING SCALE (NOVOLOG) 1 VIAL SQ SCH ×2 (06:29→11:13)
[2019-02-13] MEDS: LEVOTHYROXINE NA 100 MCG TABLET (FP) PO SCH (06:38)
[2019-02-13] MEDS: oxyCODONE HCL 5 MG TABLET PO PRN (06:39)
[2019-02-13] MEDS ORDERED: metFORMIN HCL 500 MG TABLET (FP) PO SCH (07:00)
--- NOTE | 2019-02-13 08:18 | PN ---
Progress Note (short form) - Note Progress Note: Blood sugar acceptable No hypos overnight Vital Signs Period Temp Pulse Resp BP Sys/Gillette Pulse Ox Last 24 Hr 97.8 F-98.6 F 76-89 - 121-147/49-73 94-97 PE: AOx3 Neck: Supple, No JVD Lungs: CTA CVS: S1S2 Abd: Benign Ext: No edema CMP Sodium 138 mmol/L (136-145) 02/12/19 08:32 Potassium 4.2 mmol/L (3.5-5.1) 02/12/19 08:32 Chloride 104 mmol/L (98-107) 02/12/19 08:32 Carbon Dioxide 26 mmol/L (21-32) 02/12/19 08:32 Anion Gap 8 MMOL/L (8-16) 02/12/19 08:32 BUN 22 mg/dl (7-18) H 02/12/19 08:32 Creatinine 0.8 mg/dl (0.55-1.3) 02/12/19 08:32 Creat Clearance w eGFR 71.12 (>60) 02/12/19 08:32 POC Glucometer 112 UNITS (80-120) 02/13/19 06:21 Random Glucose 134 mg/dl (74-106) H 02/12/19 08:32 Hemoglobin A1c % 4.9 % (4.2-6.3) 02/10/19 21:15 Lactic Acid 1.9 mmol/L (0.4-2.0) 02/10/19 21:15 Calcium 8.6 mg/dl (8.5-10) 02/12/19 08:32 Magnesium 1.8 mg/dL (1.8-2.4) 02/12/19 08:32 Total Bilirubin 0.5 mg/dl (0.2-1) 02/11/19 07:00 AST 15 U/L (15-37) 02/11/19 07:00 ALT 12 U/L (13-61) L 02/11/19 07:00 Alkaline Phosphatase 64 U/L (45-117) D 02/11/19 07:00 Total Protein 5.7 g/dl (6.4-8.2) L 02/11/19 07:00 Albumin 3.2 g/dl (3.4-5.0) L 02/11/19 07:00 Current Medications Generic Name Dose Route Start Last Admin Trade Name Freq PRN Reason Stop Dose Admin Artificial Tears 1 drop 02/10/19 18:00 02/12/19 21:44 Artificial Tears OU Not Given QID [facility] Aspirin 81 mg 02/11/19 10:00 02/12/19 10:12 Ecotrin - PO 81 mg DAILY JOSIAH Administration Atorvastatin Calcium 10 mg 02/10/19 22:00 02/12/19 21:44 Lipitor - PO 10 mg HS JOSIAH Administration Heparin Sodium (Porcine) 5,000 unit 02/10/19 22:00 02/12/19 21:45 Heparin - SQ 5,000 unit BID JOSIAH Administration Insulin Aspart 1 vial 02/11/19 16:30 02/13/19 06:29 Novolog Vial Sliding Scale - SQ Not Given ACHS [facility] Protocol Levothyroxine Sodium 200 mcg 02/12/19 07:00 02/13/19 06:38 Synthroid - PO 200 mcg ACBK JOSIAH Administration Loratadine 10 mg 02/11/19 10:00 02/12/19 10:12 Claritin - PO 10 mg DAILY [facility] Administration Metformin HCl 500 mg 02/13/19 07:00 Glucophage - PO BID@0700,1630 [facility] Miconazole Nitrate 1 applic 02/12/19 10:00 02/12/19 21:45 Monistat Topical Cream - TP 1 applic BID [facility] Administration Oxybutynin Chloride 5 mg 02/11/19 22:00 02/12/19 21:44 Ditropan - PO 5 mg BID JOSIAH Administration Oxycodone HCl 5 mg 02/10/19 16:45 02/13/19 06:39 Roxicodone - PO 5 mg Q6H PRN Administration PAIN SCALE 1-5 Pantoprazole Sodium 40 mg 02/11/19 10:00 02/12/19 10:12 Protonix - PO 40 mg DAILY JOSIAH Administration Trimethoprim/Sulfamethoxazole 1 each 02/10/19 16:45 02/12/19 10:12 Bactrim Ds - PO 1 each DAILY JOSIAH Administration AP: T2DM: Hypoglycemia: Probably secondary to taking Glipizide with no food Hypothyroidism H/O Dickens's Palsy Explained not to take Glipizide. Discussed option of taking other antidiabetic meds like GLP1 or SGLT2s what do not cause hypoglycemia if not takin with sulfonylureas or Insulin. Pt wants to think about it. BGM QACHS Novolog SS coverage Metformin 500mg BID Nutrtition conult. Will F/u
--- NOTE | 2019-02-13 08:43 | DS ---
Physical Exam: SUBJECTIVE: Patient seen and examined OBJECTIVE: Vital Signs Period Temp Pulse Resp BP Sys/Gillette Pulse Ox Last 24 Hr 97.8 F-98.6 F 76-89 18-19 121-147/49-73 94-97 PHYSICAL EXAM GENERAL: The patient is awake, alert, and fully oriented, in no acute distress. HEAD: Normal with no signs of trauma. EYES: PERRL, extraocular movements intact, sclera anicteric, conjunctiva clear. ENT: Ears normal, nares patent, oropharynx clear without exudates, moist mucous membranes. NECK: Trachea midline, full range of motion, supple. LUNGS: Breath sounds equal, clear to auscultation bilaterally, no wheezes, no crackles, no accessory muscle use. HEART: Regular rate and rhythm, S1, S2 without murmur, rub or gallop. ABDOMEN: Soft, nontender, nondistended, normoactive bowel sounds, no guarding, no rebound, no hepatosplenomegaly, no masses. EXTREMITIES: 2+ pulses, warm, well-perfused, no edema. NEUROLOGICAL: Cranial nerves II through XII grossly intact. Normal speech, gait not observed. PSYCH: Normal mood, normal affect. SKIN: Warm, dry, normal turgor, no rashes or lesions noted. LABS Laboratory Results - last 24 hr 02/12/19 02/12/19 02/12/19 08:32 10:56 16:15 Sodium 138 Potassium 4.2 Chloride 104 Carbon Dioxide 26 Anion Gap 8 BUN 22 H Creatinine 0.8 Creat Clearance w eGFR 71.12 POC Glucometer 152 248 Random Glucose 134 H Calcium 8.6 Magnesium 1.8 02/12/19 02/13/19 21:25 06:21 Sodium Potassium Chloride Carbon Dioxide Anion Gap BUN Creatinine Creat Clearance w eGFR POC Glucometer 144 112 Random Glucose Calcium Magnesium HOSPITAL COURSE: Date of Admission:02/11/19 Date of Discharge: 02/13/19 Discharge Summary Reason For Visit: HYPOGLYCEMIA,URINRY TRACT INFECTION Current Active Problems Hypoglycemia (Acute) Medication side effect (Acute) Urinary tract infection (Acute) Condition: Fair - Instructions - Home Medications Comprehensive Discharge Medication List: Ambulatory Orders Aspirin [Aspirin EC] 81 mg PO DAILY 08/10/17 Oxycodone HCl 5 mg PO Q6H #20 tablet MDD 4 12/04/17 Atorvastatin Ca [Lipitor] 10 mg PO DAILY 02/09/18 Dextran 70/Hypromellose [Artificial Tears Eye Drops] 15 ml OP QID #1 drops 02/11 Cholecalciferol (Vitamin D3) [D-2000] 2,000 unit PO DAILY 02/10/19 Glipizide [Glipizide ER] 10 mg PO DAILY 02/10/19 Levothyroxine [Synthroid -] 175 mcg PO ASDIR 02/10/19 Ranitidine HCl 150 mg PO DAILY 02/10/19 Ranitidine HCl [Zantac] 300 mg PO HS 02/10/19
[2019-02-13 09:39] VITALS: BP 136/72; PULSE 71; TEMP 97.6
[2019-02-13] MEDS: HEPARIN NA (PORCINE) 5,000 UNITS/ML 1ML VIAL SQ SCH (09:46)
[2019-02-13] MEDS: ARTIFICIAL TEARS (POLYVINYL ALCOHOL) OPTH DROPS OU SCH (09:46)
[2019-02-13] MEDS: ASPIRIN COATED 81 MG TABLET.EC PO SCH (09:46)
[2019-02-13] MEDS: SULFAMETHOXAZOLE/TRIMETHOPRIM 800MG/160MG D.S. TABLET PO SCH (09:46)
[2019-02-13] MEDS: OXYBUTYNIN CHLORIDE 5 MG TABLET PO SCH (09:46)
[2019-02-13] MEDS: PANTOPRAZOLE 40 MG TABLET (FP) PO SCH (09:46)
[2019-02-13] MEDS: LORATADINE 10 MG TABLET PO SCH (09:46)
[2019-02-13 09:56] LABS: ANION GAP 6 MMOL/L (8-16); BLOOD UREA NITROGEN 20 mg/dl (7-18); CALCIUM 8.3 mg/dl (8.5-10); CHLORIDE 106 mmol/L (98-107); CO2 27 mmol/L (21-32); CREATININE 0.9 mg/dl (0.55-1.3); GLUCOSE,RANDOM 136 mg/dl (74-106); MAGNESIUM 1.7 mg/dL (1.8-2.4); POTASSIUM 3.8 mmol/L (3.5-5.1); SODIUM 139 mmol/L (136-145)
[2019-02-13] MEDS: MICONAZOLE NITRATE 14 GM/TUBE TUBE TP SCH (10:32)
== END 2019-02-13 12:57 | disposition home or self-care (01) | DRG 638 ==
LOC: FER 13:39 → FM/S 15:53 → OBSVTOIN 02-11 14:38
PROVIDERS: ADMIT Internal Medicine; ATTEND Nurse Practitioner Acute Care
DX: E11.649 Type 2 diabetes mellitus with hypoglycemia without coma (principal); N39.0 Urinary tract infection, site not specified; E78.5 Hyperlipidemia, unspecified; I10 Essential (primary) hypertension; G51.0 Bell's palsy; E83.42 Hypomagnesemia; E03.9 Hypothyroidism, unspecified; Z87.891 Personal history of nicotine dependence; D64.9 Anemia, unspecified; Z98.84 Bariatric surgery status; T38.3X5A Adverse effect of insulin and oral hypoglycemic [antidiabetic] drugs, initial encounter
CPT/HCPCS: 36415; 71045-TC-FY; 80048; 80053; 81003; 81015; 82962; 83036; 83605; 83735; 85025; 87086; 90670; 93005; 99285-25; G0378; J1644; J7030

== ENCOUNTER 2019-08-16 14:25 | Emergency (ER) | payer OTHER, BC ==
--- NOTE | 2019-08-16 14:33 | PDOC ---
History of Present Illness - General Chief Complaint: Pain Stated Complaint: ABD PAIN Time Seen by Provider: 08/16/19 14:31 - History of Present Illness Initial Comments: 08/16/19 14:34 68 year old woman with a history of DM, former smoker, [place] palsy, hypothyroidism, HTN, HLD, anemia, hernias, lap band s/p removal, chronic UTIs, degenerative disc disease/chronic back pain presents with Patient reports that within the past 1 year she had 8 abdominal hernias Allergies: codeine, keflex, iodine Past Medical History: Social history: former smoker Surgical history: abdominal surgeries, lap band, wound vac, hernia repair PCP: Dr Alejandro GARCIA GENERAL/CONSTITUTIONAL: No fever or chills. No weakness. HEAD, EYES, EARS, NOSE AND THROAT: No change in vision. No ear pain or discharge. No sore throat. CARDIOVASCULAR: No chest pain or shortness of breath RESPIRATORY: No cough, wheezing, or hemoptysis. GASTROINTESTINAL: No nausea, vomiting, diarrhea or constipation. GENITOURINARY: No dysuria, frequency, or change in urination. MUSCULOSKELETAL: No joint or muscle swelling or pain. No neck or back pain. SKIN: No rash NEUROLOGIC: No headache, vertigo, loss of consciousness, or change in strength/ sensation. ENDOCRINE: No increased thirst. No abnormal weight change HEMATOLOGIC/LYMPHATIC: No anemia, easy bleeding, or history of blood clots. ALLERGIC/IMMUNOLOGIC: No hives or skin allergy. PE GENERAL: Awake, alert, and fully oriented, in no acute distress HEAD: No signs of trauma, normocephalic, atraumatic EYES: PERRLA, EOMI, sclera anicteric, conjunctiva clear ENT: Auricles normal inspection, hearing grossly normal, nares patent, oropharynx clear without exudates. Moist mucosa NECK: Normal ROM, supple, no lymphadenopathy, JVD, or masses LUNGS: No distress, speaks full sentences, clear to auscultation bilaterally HEART: Regular rate and rhythm, normal S1 and S2, no murmurs, rubs or gallops, peripheral pulses normal and equal bilaterally. ABDOMEN: Soft, nontender, normoactive bowel sounds. No guarding, no rebound. No masses EXTREMITIES : Normal inspection, Normal range of motion, no edema. No clubbing or cyanosis. NEUROLOGICAL: Cranial nerves II through XII grossly intact. Normal speech, normal gait, no focal sensorimotor deficits SKIN: Warm, Dry, normal turgor, no rashes or lesions noted GENITAL: uncircumcised male, vertical lie of testes, no inguinal lymphadenopathy , nontenderness to epididymal palpation, no erythema, lesions or ulcers MDM DDX including but not limited to: W/U: - TX: - Scores: ED Course: Patient stable for discharge. Informed of all lab and imaging results. Given follow up instructions and strict return precautions. Patient expressed understanding and agree to plan. Commercial Assistant #: Deana Alexander, PGY2 Emergency Medicine 08/16/19 14:48 Past History - Past Medical History Allergies/Adverse Reactions: Allergies Allergy/AdvReac Type Severity Reaction Status Date / Time cephalexin monohydrate Allergy Severe Difficulty Verified 05/16/18 11:46 [From Keflex] Breathing iodine Allergy Severe Hives Verified 05/16/18 11:46 adhesive tape Allergy Mild Verified 05/16/18 11:46 codeine [Codeine] Allergy Mild Itching Verified 05/16/18 11:46 Home Medications: Ambulatory Orders RX: Aspirin [Aspirin EC] 81 mg PO DAILY 08/10/17 RX: Oxycodone HCl 5 mg PO Q6H #20 tablet MDD 4 12/04/17 RX: Atorvastatin Ca [Lipitor] 10 mg PO DAILY 02/09/18 RX: Dextran 70/Hypromellose [Artificial Tears Eye Drops] 15 ml OP QID #1 drops 02/11/18 RX: Cholecalciferol (Vitamin D3) [D3-2000] 2,000 unit PO DAILY 02/10/19 RX: Levothyroxine [Synthroid -] 175 mcg PO ASDIR 02/10/19 RX: Ranitidine HCl 150 mg PO DAILY 02/10/19 Miscellaneous Medical Supply [Glucometer Device] 1 each TP ASDIR #1 kit Miscellaneous Medical Supply [Glucometer Test Strips #100] 1 each TP ASDIR #1 box 02/13/19 RX: Polyvinyl Alcohol [Artificial Tears] 1 drop OU QID drops 02/13/19 RX: metFORMIN HCL [Glucophage -] 500 mg PO BID@0700,1630 #60 tablet 02/13/19 Anemia: Yes (NO MEDS) Asthma: No Cancer: No Cardiac Disorders: No CVA: No COPD: No CHF: No Dementia: No Diabetes: Yes GI Disorders: Yes (LAP BAND COMPLICATIONS) Disorders: Yes (Chronic UTI) HTN: No Hypercholesterolemia: (on lipitor because of metformin) Liver Disease: No Seizures: No Thyroid Disease: Yes (GRAVES) - Surgical History Abdominal Surgery: Yes (NUMEROUS A RESULT OF LAP BAND COMPLICATIONS) Appendectomy: No Cardiac Surgery: No Cholecystectomy: Yes GI Surgery: Yes (DUODENAL ULCER SX) Lung Surgery: No Neurologic Surgery: No Orthopedic Surgery: Yes (LT KNEE ARTHROSCOPY x2, LT KNEE MENISCAL REPAIR) - Psycho Social/Smoking Cessation Hx Smoking Status: Yes Smoking History: Former smoker Have you smoked in the past 12 months: No Number of Cigarettes Smoked Daily: 10 If you are a former smoker, when did you quit?: 2005 Hx Alcohol Use: No Drug/Substance Use Hx: No Substance Use Type: None Hx Substance Use Treatment: No ED Treatment Course - LABORATORY CBC & Chemistry Diagram: 08/16/19 15:15 08/16/19 15:15 Discharge - Discharge Information Problems reviewed: Yes Clinical Impression/Diagnosis: Abdominal pain Condition: Stable Disposition: HOME - Admission No - Follow up/Referral - Patient Discharge Instructions Patient Printed Discharge Instructions: DI for Abdominal Pain-Adult Additional Instructions: You were seen in the ED for complaints of abdominal pain In the ED you were evaluated with labwork and imaging Your results were largely unremarkable There does not appear to be an acute need for immediate hospitalization. You are advised to follow up with your Primary Care Physician within 1 week. Take Tylenol and Motrin for pain. Return to the ED immediately if you experience worsening pain, nausea, vomiting , fever or any other concerning symptoms. - Post Discharge Activity
[2019-08-16 14:45] VITALS: BP 139/77; PULSE 67; TEMP 98.2; BMI 41.5
[2019-08-16] MEDS ORDERED: ACETAMINOPHEN 1000 MG/100 ML VIAL (NON FORMULARY) IVPB ONE (14:48)
[2019-08-16] MEDS ORDERED: ACETAMINOPHEN INJECTION 100 ML IVPB ONE ×2 (15:25→15:44)
--- NOTE | 2019-08-16 15:35 | PDOC ---
Attending Attestation - Resident Resident Name: Zainab Alexanderie - HPI HPI: 08/16/19 15:12 Pt presents to the ED complaining of a several month history of abdominal pain that was worse today. PAtient has a history of "emergency hernia surgery". Seen by Dr. Fuentes, who recommended that she get CT. Denies vomiting, does complain of intermittent diarrhea and nausea over the past month. - Physicial Exam PE: 08/16/19 15:35 Agree with resident exam. Patient is alert and oriented x 3 and in no acute distress. Abdomen is soft. + area of ? distention that is tender with some voluntary guarding. - Medical Decision Making 08/16/19 16:10 Pt presents to the ED complaining of abdominal pain. Concern for hernia. Will do CT abdomen pelvis to evaluate for hernia and discharge if negative.
[2019-08-16 15:50] LABS: ALBUMIN 3.7 g/dl (3.4-5.0); BASO % 0.6 % (0-2.0); BILIRUBIN,TOTAL 0.3 mg/dl (0.2-1); CREATININE 0.7 mg/dl (0.55-1.3); EOS % 3.2 % (0-4.5); HEMATOCRIT 34.5 % (32.4-45.2); HEMOGLOBIN 10.8 GM/dl (10.7-15.3); LYMPH % 15.8 % (8-40); MCH 25.2 pg (25.7-33.7); MCHC 31.3 g/dl (32.0-36.0); MEAN CELL VOLUME 80.7 fl (80-96); MEAN PLT VOLUME 8.8 fl (7.5-11.1); NEUT % 71.4 % (42.8-82.8); PLATELET COUNT 189 K/MM3 (134-434); POTASSIUM 4.1 mmol/L (3.5-5.1); RBC 4.27 M/mm3 (3.60-5.2); RDW 15.5 % (11.6-15.6); TOT PROT 6.7 g/dl (6.4-8.2); WHITE BLOOD COUNT 8.8 K/mm3 (4.0-10.8)
[2019-08-16 16:48] LABS: INR 1.29 (0.82-1.09); PROTHROMBIN TIME (PATIENT) 14.4 SEC (10.2-13.0)
== END 2019-08-16 18:05 | disposition home or self-care (01) ==
LOC: FER 14:25
PROC: 3E033NZ Introduction of Analgesics, Hypnotics, Sedatives into Peripheral Vein, Percutaneous Approach (ICD-10-PCS; principal; 2019-08-16)
DX: R10.9 Unspecified abdominal pain (principal); I10 Essential (primary) hypertension; E78.5 Hyperlipidemia, unspecified; E11.9 Type 2 diabetes mellitus without complications; M54.9 Dorsalgia, unspecified; G89.29 Other chronic pain; E05.00 Thyrotoxicosis with diffuse goiter without thyrotoxic crisis or storm; Z87.440 Personal history of urinary (tract) infections; Z87.891 Personal history of nicotine dependence; Z91.048 Other nonmedicinal substance allergy status; Z88.1 Allergy status to other antibiotic agents; Z88.6 Allergy status to analgesic agent; Z79.82 Long term (current) use of aspirin; Z79.84 Long term (current) use of oral hypoglycemic drugs
CPT/HCPCS: 36415; 74176-TC; 80053; 85025; 85610; 85730; 86850; 86900; 86901; 96372; 99283-25; J0131

== ENCOUNTER → 2019-08-28 | Day surgery (SDC) | payer OTHER, BC ==
[2019-08-26 10:21] VITALS: BMI 38.2
[~2019-08-28] MED LIST: LIDOCAINE HCL 2% (20ML MULTI-DOSE VIAL) NR ONE; LIDOCAINE HCL 2% (50ML VIAL) INF ONE; MIDAZOLAM HCL 2 MG/2 ML SINGLE DOSE VIAL ONE; PROPOFOL 20 ML ONE; oxyCODONE HCL 5 MG TABLET ONE
[2019-08-28 11:25] VITALS: TEMP 98.1
[2019-08-28 11:46] VITALS: BP 140/82; PULSE 80
--- NOTE | 2019-08-29 09:53 | OP ---
DATE OF OPERATION: 08/28/2019 PREOPERATIVE DIAGNOSIS: Right carpal tunnel syndrome. POSTOPERATIVE DIAGNOSIS: Right carpal tunnel syndrome. OPERATIVE PROCEDURE: Right carpal tunnel release. ANESTHESIA: Local with sedation. COMPLICATIONS: None. ESTIMATED BLOOD LOSS: Minimal. INDICATION FOR PROCEDURE: The patient is a 68-year-old female with the above finding indicated for operative treatment. Risks, benefits, and alternatives were discussed with her at length, and proper informed consent was obtained. DESCRIPTION OF PROCEDURE: After proper identification of patient and correct operative site, patient was brought to the operating room and placed supine on the table. All prominences were well padded. Sedation and local anesthesia were given. Right upper extremity was prepped and draped in usual sterile fashion. Well-padded tourniquet was placed as well as a sterile prep. Esmarch bandage was used to exsanguinate the right upper extremity. Tourniquet was inflated to 250 mmHg. Longitudinal incision was made in the proximal aspect of the palm. Incision was taken sharply through the skin, with blunt and sharp dissection through the subcutaneous tissues. Palmar fascia was divided longitudinally. Transverse carpal ligament along with the distal 4 cm of the antebrachial fascia was divided longitudinally under direct visualization with loupe magnification. This provided complete release of the median nerve at the wrist. Wound was irrigated and repaired with a 5-0 fast-absorbing, plain-gut suture. Sterile dressings were applied. Patient was brought to the recovery room in stable condition. She tolerated the procedure well. Pérez [id number]
== END | disposition home or self-care (01) ==
LOC: FASU 07:30
PROVIDERS: ATTEND Orthopaedic Surgery Hand Surgery
PROC: 01N50ZZ Release Median Nerve, Open Approach (ICD-10-PCS; principal; 2019-08-28 09:00)
DX: G56.01 Carpal tunnel syndrome, right upper limb (principal)
CPT/HCPCS: 82962

== ENCOUNTER 2022-03-20 23:09 | Emergency (ER) | payer OTHER, BC ==
[2022-03-20 23:15] VITALS: BP 135/93; PULSE 81; TEMP 97; BMI 38.2
== END 2022-03-21 01:11 | disposition home or self-care (01) ==
LOC: FER 23:09
DX: S80.11XA Contusion of right lower leg, initial encounter (principal)
CPT/HCPCS: 93971-TC; 99284-25

== ENCOUNTER 2023-04-12 06:48 | Day surgery (SDC) | payer OTHER, BC ==
[2023-04-10 11:55] VITALS: BMI 25.4
[2023-04-12] MEDS ORDERED: CYCLOPENTOLATE 2% OPHTH SOLN 2 ML BOTTLE ONE (07:01)
[2023-04-12] MEDS ORDERED: TROPICAMIDE 1% OPHTH SOLN 15 ML BOTTLE ONE (07:01)
[2023-04-12] MEDS ORDERED: CIPROFLOXACIN 0.3% EYE DROPS 5 ML BOTTLE ONE (07:01)
[2023-04-12] MEDS ORDERED: PHENYLEPHRINE 2.5% OPTHALMIC DROP 2ML BOTTLE ONE (07:01)
[2023-04-12] MEDS ORDERED: TRYPAN BLUE 0.5 ML DISP.SYRIN ONE (07:09)
[2023-04-12] MEDS ORDERED: PHENYLEPHRINE/KETOROLAC 4 ML VIAL IO ONE (07:09)
[2023-04-12] MEDS ORDERED: LIDOCAINE 1% P/F 10 MG/ML VIAL ONE (07:09)
[2023-04-12] MEDS ORDERED: EPINEPHrine/PF 1 MG/1 ML (1:1,000) AMPULE ONE (07:09)
[2023-04-12] MEDS ORDERED: BSS (NA/CA/MG/K) BALANCED SALT SOLUTION OPHTH SOLN 15 ML BOTTLE ONE (07:10)
[2023-04-12] MEDS ORDERED: ACETYLCHOLINE 1:100 INTRA-OCUL 20 MG/2 ML KIT ONE (07:10)
[2023-04-12] MEDS ORDERED: NEO/POLYMYX B SULF/DEXAMETH OPHTHALMIC 5ML BOTTLE ONE (07:10)
[2023-04-12] MEDS ORDERED: CARBACHOL 0.01% INTRA-OCULAR 1.5 ML VIAL ONE (07:10)
[2023-04-12] MEDS ORDERED: TETRACAINE 0.5% OPHTH SOLN 2 ML BOTTLE ONE (07:10)
[2023-04-12] MEDS ORDERED: CIPROFLOXACIN 0.3% EYE DROPS 5 ML BOTTLE OD ONE ×3 (07:50→08:00)
[2023-04-12] MEDS ORDERED: TROPICAMIDE 1% OPHTH SOLN 15 ML BOTTLE OD ONE ×3 (07:50→08:00)
[2023-04-12] MEDS ORDERED: PHENYLEPHRINE 2.5% OPHTH SOLN 15 ML BOTTLE OD ONE ×3 (07:50→08:00)
[2023-04-12 07:51] VITALS: PULSE 73
[2023-04-12] MEDS ORDERED: CYCLOPENTOLATE 2% OPHTH SOLN 2 ML BOTTLE OD ONE ×2 (07:55→08:00)
[2023-04-12] MEDS ORDERED: MIDAZOLAM HCL 2 MG/2 ML SINGLE DOSE VIAL ONE (07:57)
[2023-04-12] MEDS ORDERED: METOPROLOL TARTRATE 5 MG/5 ML VIAL ONE (08:34)
[2023-04-12 09:06] VITALS: BP 127/71; RESP 18; TEMP 97.8
== END 2023-04-12 11:10 | disposition home or self-care (01) ==
LOC: FASU 06:48
PROVIDERS: ATTEND Ophthalmology
PROC: 08RK3JZ Replacement of Left Lens with Synthetic Substitute, Percutaneous Approach (ICD-10-PCS; principal; 2023-04-12 08:34)
DX: H26.8 Other specified cataract (principal)
CPT/HCPCS: 66984; V2632; 82962; J1097

== ENCOUNTER 2023-05-03 06:48 | Day surgery (SDC) | payer OTHER, BC ==
[2023-04-25 15:12] VITALS: BMI 25.4
[2023-05-03] MEDS ORDERED: LIDOCAINE HCL/PF 1% SDV 5ML VIAL ONE (07:14)
[2023-05-03] MEDS ORDERED: ACETYLCHOLINE 1:100 INTRA-OCUL 20 MG/2 ML KIT ONE (07:14)
[2023-05-03] MEDS ORDERED: TETRACAINE 0.5% OPHTH SOLN 2 ML BOTTLE ONE (07:14)
[2023-05-03] MEDS ORDERED: BSS (NA/CA/MG/K) BALANCED SALT SOLUTION OPHTH SOLN 15 ML BOTTLE ONE (07:14)
[2023-05-03] MEDS ORDERED: EPINEPHrine/PF 1 MG/1 ML (1:1,000) AMPULE ONE (07:14)
[2023-05-03] MEDS ORDERED: PHENYLEPHRINE/KETOROLAC 4 ML VIAL IO ONE (07:14)
[2023-05-03] MEDS ORDERED: LIDOCAINE 1% P/F 10 MG/ML VIAL ONE (07:14)
[2023-05-03] MEDS ORDERED: CARBACHOL 0.01% INTRA-OCULAR 1.5 ML VIAL ONE (07:15)
[2023-05-03] MEDS ORDERED: NEO/POLYMYX B SULF/DEXAMETH OPHTHALMIC 5ML BOTTLE ONE (07:15)
[2023-05-03] MEDS ORDERED: MIDAZOLAM HCL 2 MG/2 ML SINGLE DOSE VIAL ONE (07:22)
[2023-05-03] MEDS: CIPROFLOXACIN 0.3% EYE DROPS 5 ML BOTTLE ONE ×3 (07:30→07:40)
[2023-05-03] MEDS: PHENYLEPHRINE 2.5% OPTHALMIC DROP 2ML BOTTLE ONE ×3 (07:30→07:40)
[2023-05-03] MEDS: TROPICAMIDE 1% OPHTH SOLN 15 ML BOTTLE ONE ×3 (07:30→07:40)
[2023-05-03] MEDS: CYCLOPENTOLATE 2% OPHTH SOLN 2 ML BOTTLE ONE ×3 (07:30→07:40)
[2023-05-03 09:11] VITALS: RESP 18; TEMP 96.9
[2023-05-03 09:21] VITALS: BP 134/74; PULSE 88
== END 2023-05-03 09:20 | disposition home or self-care (01) ==
LOC: FASU 06:48
PROVIDERS: ATTEND Ophthalmology
PROC: 08RJ3JZ Replacement of Right Lens with Synthetic Substitute, Percutaneous Approach (ICD-10-PCS; principal; 2023-05-03 08:30)
DX: H26.8 Other specified cataract (principal)
CPT/HCPCS: 66984; V2632; 82962; J1097

== ENCOUNTER 2024-02-05 12:28 | Inpatient (IN) | payer OTHER, BC ==
[2024-02-05] MEDS ORDERED: GLUCAGON 1 MG KIT ONE (13:42)
[2024-02-05] MEDS: GLUCAGON 1 MG KIT IVPUSH ONE (14:00)
[2024-02-05 14:22] LABS: HEMATOCRIT 29.1 % (32.4-45.2); HEMOGLOBIN 8.8 G/dL (10.7-15.3); MCH 22.3 pg (25.7-33.7); MCHC 30.1 g/dl (32.0-36.0); MEAN CELL VOLUME 73.9 fl (80-96); PLATELET COUNT 190.5 10^3/uL (134-434); RBC 3.94 10^6/uL (3.60-5.2); RDW 19.1 % (11.6-15.6); WHITE BLOOD COUNT 11.5 10^3/uL (4.0-10.8)
[2024-02-05 14:24] LABS: INR 1.35 (0.83-1.09); PROTHROMBIN TIME (PATIENT) 15.6 SEC (9.7-13.0)
[2024-02-05 14:27] LABS: ACTIVATED PTT 33.2 SECONDS (25.2-36.5)
[2024-02-05 14:33] LABS: ALBUMIN 3.9 g/dl (3.4-5.0); BILIRUBIN,TOTAL 0.6 mg/dl (0.2-1); CALCIUM 9.1 mg/dl (8.5-10.1); CREATININE 0.5 mg/dl (0.6-1.3); POTASSIUM 3.1 mmol/L (3.5-5.1); TOT PROT 6.5 g/dl (6.4-8.2)
[2024-02-05] MEDS: morphine CARPU-JECT 4 MG/1 ML DISP.SYRIN IVPUSH ONE (15:21)
[2024-02-05] MEDS ORDERED: PIPERACILLIN/TAZOBACTAM 4.5 GM VIAL IVPB ONE (15:21)
[2024-02-05] MEDS ORDERED: morphine SULFATE 4 MG/ML VIAL ONE (15:21)
[2024-02-05] MEDS: PIPERACILLIN/TAZOB 4.5 GM 4.5 GM in DEXTROSE 5%-WATER 100 ML IVPB ONE (15:22)
[2024-02-05] MEDS: ACETAMINOPHEN 1000 MG/100 ML BAG IVPB ONE (15:44)
[2024-02-05 15:46] LABS: ANISOCYTOSIS 2+
[2024-02-05 15:47] LABS: OVALOCYTE FEW; PLATELET ESTIMATE ADEQUATE; TEAR DROP CELLS FEW
[2024-02-05] MEDS ORDERED: ONDANSETRON 4 MG/2 ML VIAL ONE (15:57)
[2024-02-05] MEDS: ONDANSETRON 4 MG/2 ML VIAL IVPUSH ONE (16:00)
[2024-02-05] MEDS ORDERED: ACETAMINOPHEN INJECTION 100 ML IVPB ONE (16:05)
[2024-02-05] MEDS ORDERED: FENTANYL CITRATE/PF 50 MCG/ML VIAL ONE ×2 (17:59→19:41)
[2024-02-05] MEDS: DEXMEDETOMIDINE PREMIX 400 MCG/100 ML BAG IVPB SCH ×2 (20:00→21:54)
[2024-02-05] MEDS: FENTANYL NS IVPB 500 MCG/100 ML BAG IVPB SCH (20:00)
[2024-02-05] MEDS ORDERED: FENTANYL NS IVPB 500 MCG/100 ML BAG IVPB ONE (20:07)
[2024-02-05] MEDS ORDERED: DEXMEDETOMIDINE PREMIX 400 MCG/100 ML BAG IVPB ONE (20:08)
[2024-02-05] MEDS ORDERED: PROPOFOL 1,000,000 MCG/100 ML VIAL ONE (20:20)
[2024-02-05] MEDS: PROPOFOL 1,000,000 MCG/100 ML VIAL IVPB SCH (20:30)
[2024-02-05] MEDS: KCL 10 MEQ IVPB 10 MEQ/100 ML INFUS.BAG IVPB SCH (21:00)
[2024-02-05 21:04] LABS: ALLENS TEST POSITIVE; ARTERIAL BLD GAS O2 SATURATION 99.7 % (95-98); ARTERIAL BLOOD GAS BASE EXCESS -3.1 mmol/L (-2-2); ARTERIAL BLOOD GAS PO2 282.4 mmHg (80-100); ARTERIAL BLOOD GAS pH 7.384 (7.350-7.450)
[2024-02-05 21:05] LABS: VENT MODE A/C; VENT RATE 18
[2024-02-05 21:11] LABS: BASO % 0.1 % (0-2.0); EOS % 0.8 % (0-4.5); HEMATOCRIT 25.7 % (32.4-45.2); HEMOGLOBIN 7.6 GM/dL (10.7-15.3); LYMPH % 5.9 % (8-40); MCH 21.4 pg (25.7-33.7); MCHC 29.4 g/dl (32.0-36.0); MEAN CELL VOLUME 72.9 fl (80-96); MEAN PLT VOLUME 8.5 fl (7.5-11.1); MONO % 5.6 % (3.8-10.2); NEUT % 87.6 % (42.8-82.8); PLATELET COUNT 176 10^3/uL (134-434); RBC 3.53 M/mm3 (3.60-5.2); RDW 18.4 % (11.6-15.6); WHITE BLOOD COUNT 9.3 K/mm3 (4.0-10.0)
[2024-02-05 21:18] LABS: INR 1.36 (0.83-1.09); PROTHROMBIN TIME (PATIENT) 15.7 SEC (9.7-13.0)
[2024-02-05 21:20] LABS: ACTIVATED PTT 32.4 SECONDS (25.2-36.5)
[2024-02-05] MEDS: LACTATED RINGERS SOLUTION 1,000 ML/1,000 ML INFUS.BAG IV SCH (21:26)
[2024-02-05 21:33] LABS: POTASSIUM 3.1 mmol/L (3.5-5.1)
[2024-02-05 21:35] LABS: ALBUMIN 2.8 g/dl (3.4-5.0); BLOOD UREA NITROGEN 13.2 mg/dL (7-18); CALCIUM 8.3 mg/dL (8.5-10.1); MAGNESIUM 1.3 mg/dL (1.8-2.4)
[2024-02-05 21:39] LABS: CREATININE 0.6 mg/dL (0.55-1.3); PHOSPHOROUS 4.1 mg/dL (2.5-4.9)
[2024-02-05 21:40] LABS: BILIRUBIN,TOTAL 0.6 mg/dL (0.2-1); TOT PROT 5.8 g/dl (6.4-8.2)
[2024-02-05] MEDS: CALCIUM GLUCONATE 10% - 1,000 MG/10 ML VIAL IVPB ONE (21:51)
[2024-02-05 21:53] LABS: ANISOCYTOSIS 2+; MACROCYTOSIS 0; OVALOCYTE 1+; TARGET CELLS 1+
[2024-02-05] MEDS: PIPERACILLIN/TAZOB 4.5 GM 4.5 GM in DEXTROSE 5%-WATER 100 ML IVPB SCH ×2 (21:55→22:00)
[2024-02-05] MEDS: KCL 20 MEQ PREMIX BAG 20 MEQ/100 ML INFUS.BAG IVPB SCH (22:30)
[2024-02-05] MEDS: DEXTROSE 5%-LACTATED RINGERS 1,000 ML IV SCH (22:48)
[2024-02-06] LABS: ARTERIAL BLD GAS O2 SATURATION 97.2 % (95-98); ARTERIAL BLOOD GAS PO2 92.6 mmHg (80-100); ARTERIAL BLOOD GAS pH 7.407 (7.350-7.450)
[2024-02-06 00:01] LABS: ALLENS TEST POSITIVE
[2024-02-06 00:02] LABS: VENT MODE A/C; VENT RATE 18
[2024-02-06 07:35] LABS: HEMATOCRIT 25.6 % (32.4-45.2); HEMOGLOBIN 7.6 GM/dL (10.7-15.3); MCH 21.5 pg (25.7-33.7); MCHC 29.6 g/dl (32.0-36.0); MEAN CELL VOLUME 72.5 fl (80-96); MEAN PLT VOLUME 9.1 fl (7.5-11.1); PLATELET COUNT 196 10^3/uL (134-434); RBC 3.54 M/mm3 (3.60-5.2); RDW 18.4 % (11.6-15.6); WHITE BLOOD COUNT 7.9 K/mm3 (4.0-10.0)
[2024-02-06 07:38] LABS: INR 1.33 (0.83-1.09); PROTHROMBIN TIME (PATIENT) 15.4 SEC (9.7-13.0)
[2024-02-06 07:41] LABS: ACTIVATED PTT 29.1 SECONDS (25.2-36.5)
[2024-02-06 07:47] LABS: POTASSIUM 3.8 mmol/L (3.5-5.1)
[2024-02-06 07:50] LABS: ALBUMIN 2.6 g/dl (3.4-5.0); BLOOD UREA NITROGEN 18.4 mg/dL (7-18); CALCIUM 8.3 mg/dL (8.5-10.1); MAGNESIUM 1.4 mg/dL (1.8-2.4)
[2024-02-06 07:54] LABS: CREATININE 0.7 mg/dL (0.55-1.3); PHOSPHOROUS 4.9 mg/dL (2.5-4.9)
[2024-02-06 07:55] LABS: BILIRUBIN,TOTAL 0.6 mg/dL (0.2-1)
[2024-02-06 07:56] LABS: TOT PROT 5.7 g/dl (6.4-8.2)
[2024-02-06] MEDS: PANTOPRAZOLE SODIUM 40 MG VIAL IVPUSH SCH (09:58)
[2024-02-06] MEDS: MAGNESIUM SULF 50% (8.12 MEQ/2 ML-1 GM VIAL) IVPB ONE (10:04)
[2024-02-06] MEDS: ACETAMINOPHEN 1000 MG/100 ML BAG IVPB ONE (13:40)
[2024-02-06] MEDS: IRON SUCROSE INJECTION 200 MG in SODIUM CHLORIDE 100 ML IVPB ONE (13:44)
[2024-02-06] MEDS ORDERED: PIPERACILLIN/TAZOB 3.375 GM 3.375 GM in DEXTROSE 5%-WATER - 50 ML IVPB SCH (18:00)
[2024-02-06] MEDS: PIPERACILLIN/TAZOB 3.375 GM 3.375 GM in DEXTROSE 5%-WATER - 50 ML IVPB SCH (18:01)
[2024-02-06] MEDS: ONDANSETRON 4 MG/2 ML VIAL IVPUSH PRN (22:06)
[2024-02-06] MEDS ORDERED: MELATONIN 5 MG TABLETS PO PRN (22:13)
[2024-02-07 07:40] LABS: HEMATOCRIT 26.2 % (32.4-45.2); HEMOGLOBIN 7.9 GM/dL (10.7-15.3); MCH 22.1 pg (25.7-33.7); MCHC 30.1 g/dl (32.0-36.0); MEAN CELL VOLUME 73.5 fl (80-96); MEAN PLT VOLUME 8.8 fl (7.5-11.1); PLATELET COUNT 205 10^3/uL (134-434); RBC 3.56 M/mm3 (3.60-5.2); RDW 18.8 % (11.6-15.6); WHITE BLOOD COUNT 7.9 K/mm3 (4.0-10.0)
[2024-02-07 07:55] LABS: CALCIUM 8.3 mg/dL (8.5-10.1)
[2024-02-07 07:57] LABS: ALBUMIN 2.8 g/dl (3.4-5.0); BLOOD UREA NITROGEN 21.2 mg/dL (7-18); MAGNESIUM 1.5 mg/dL (1.8-2.4)
[2024-02-07 07:59] LABS: CREATININE 0.9 mg/dL (0.55-1.3); PHOSPHOROUS 3.5 mg/dL (2.5-4.9)
[2024-02-07 08:00] LABS: BILIRUBIN,TOTAL 0.4 mg/dL (0.2-1); TOT PROT 5.8 g/dl (6.4-8.2)
[2024-02-07] MEDS ORDERED: POTASSIUM CHLORIDE TABS 20 MEQ TABLET.ER (FP) PO ONE (08:47)
[2024-02-07] MEDS: IRON SUCROSE INJECTION 200 MG in SODIUM CHLORIDE 100 ML IVPB ONE (09:41)
[2024-02-07] MEDS: ALPRAZolam 1 MG TABLET PO PRN ×2 (09:41→23:05)
[2024-02-07] MEDS: POTASSIUM CHLORIDE ORAL LIQUID 20 MEQ/15 ML PO ONE ×2 (11:31→14:47)
[2024-02-07] MEDS: MAGNESIUM 1GM/D5W 100ML - 100 ML IVPB IVPB ONE (11:31)
[2024-02-07] MEDS: GABAPENTIN 300 MG CAPSULE PO SCH ×2 (12:08→23:04)
[2024-02-07] MEDS ORDERED: POTASSIUM CHLORIDE TABS 10 MEQ TABLET.ER (FP) PO ONE (13:00)
[2024-02-07] MEDS ORDERED: ONDANSETRON 4 MG/2 ML VIAL IVPUSH PRN (20:55)
[2024-02-08] MEDS: PIPERACILLIN/TAZOB 3.375 GM 3.375 GM in DEXTROSE 5%-WATER - 50 ML IVPB SCH (02:59)
[2024-02-08] MEDS: POTASSIUM CHLORIDE 20 MEQ, POTASSIUM CHLORIDE 10 MEQ PO ONE (08:13)
[2024-02-08 08:21] LABS: POTASSIUM 3.4 mmol/L (3.5-5.1)
[2024-02-08 08:23] LABS: CALCIUM 8.2 mg/dL (8.5-10.1)
[2024-02-08 08:24] LABS: BLOOD UREA NITROGEN 15.6 mg/dL (7-18)
[2024-02-08 08:27] LABS: CREATININE 0.7 mg/dL (0.55-1.3)
[2024-02-08 08:43] LABS: BASO % 0.9 % (0-2.0); EOS % 5.8 % (0-4.5); HEMATOCRIT 26.5 % (32.4-45.2); HEMOGLOBIN 7.8 GM/dL (10.7-15.3); LYMPH % 23.9 % (8-40); MCH 21.9 pg (25.7-33.7); MCHC 29.3 g/dl (32.0-36.0); MEAN CELL VOLUME 74.6 fl (80-96); MEAN PLT VOLUME 8.5 fl (7.5-11.1); MONO % 13.5 % (3.8-10.2); NEUT % 55.9 % (42.8-82.8); PLATELET COUNT 177 10^3/uL (134-434); RBC 3.56 M/mm3 (3.60-5.2)
[2024-02-08] MEDS: LEVOTHYROXINE NA 150 MCG TABLET PO SCH (09:25)
[2024-02-08] MEDS: PANTOPRAZOLE 40 MG TABLET PO SCH (09:25)
[2024-02-08] MEDS ORDERED: ACETAMINOPHEN 325 MG TABLET (FP) PO PRN (18:17)
[2024-02-08] MEDS: BENZOCAINE 20 % GEL TUBE MM PRN (21:47)
[2024-02-09] MEDS: LEVOTHYROXINE NA 125 MCG TABLET (FP) PO SCH (06:39)
[2024-02-09] MEDS: POTASSIUM CHLORIDE ORAL LIQUID 20 MEQ/15 ML PO ONE (07:40)
[2024-02-09] MEDS: PYRIDOXINE HCL (B-6) 50 MG TABLET (FP) PO SCH (09:42)
[2024-02-09] MEDS: POTASSIUM CHLORIDE TABS 20 MEQ TABLET.ER (FP) PO ONE (09:46)
[2024-02-09 10:13] LABS: POTASSIUM 3.7 mmol/L (3.5-5.1)
[2024-02-09 10:14] LABS: BASO % 0.8 % (0-2.0); EOS % 3.7 % (0-4.5); HEMATOCRIT 28.6 % (32.4-45.2); HEMOGLOBIN 8.4 GM/dL (10.7-15.3); LYMPH % 20.2 % (8-40); MCH 22.2 pg (25.7-33.7); MCHC 29.4 g/dl (32.0-36.0); MEAN CELL VOLUME 75.6 fl (80-96); MEAN PLT VOLUME 8.4 fl (7.5-11.1); MONO % 9.8 % (3.8-10.2); NEUT % 65.5 % (42.8-82.8); PLATELET COUNT 208 10^3/uL (134-434); RBC 3.78 M/mm3 (3.60-5.2); WHITE BLOOD COUNT 5.8 K/mm3 (4.0-10.0)
[2024-02-09 10:19] LABS: RETICULOCYTES 2.67 % (0.5-1.5)
[2024-02-09 10:44] LABS: CALCIUM 8.5 mg/dL (8.5-10.1)
[2024-02-09 10:45] LABS: ALBUMIN 2.7 g/dl (3.4-5.0)
[2024-02-09 10:48] LABS: BILIRUBIN,TOTAL 0.3 mg/dL (0.2-1)
[2024-02-09 10:49] LABS: CREATININE 0.6 mg/dL (0.55-1.3); TOT PROT 6.1 g/dl (6.4-8.2)
[2024-02-09] MEDS: PIPERACILLIN/TAZOB 3.375 GM 3.375 GM in DEXTROSE 5%-WATER - 50 ML IVPB SCH (17:47)
[2024-02-09] MEDS: VANCOMYCIN/WATER FOR INJ (PEG) 1,000 MG/200 ML BAG IVPB ONE (20:14)
[2024-02-10] MEDS: MELATONIN 5 MG TABLETS PO PRN (00:11)
[2024-02-10 10:49] LABS: BASO % 0.8 % (0-2.0); EOS % 3.1 % (0-4.5); MCH 22.4 pg (25.7-33.7); MCHC 29.7 g/dl (32.0-36.0); MEAN CELL VOLUME 75.6 fl (80-96); MEAN PLT VOLUME 8.4 fl (7.5-11.1); MONO % 10.8 % (3.8-10.2); NEUT % 66.3 % (42.8-82.8); PLATELET COUNT 181 10^3/uL (134-434); RBC 3.58 M/mm3 (3.60-5.2); RDW 19.2 % (11.6-15.6); WHITE BLOOD COUNT 6.2 K/mm3 (4.0-10.0)
[2024-02-10 11:01] LABS: POTASSIUM 3.6 mmol/L (3.5-5.1)
[2024-02-10 11:05] LABS: CALCIUM 8.5 mg/dL (8.5-10.1)
[2024-02-10 11:06] LABS: ALBUMIN 2.6 g/dl (3.4-5.0); BLOOD UREA NITROGEN 16.4 mg/dL (7-18); MAGNESIUM 1.3 mg/dL (1.8-2.4)
[2024-02-10 11:08] LABS: CREATININE 0.6 mg/dL (0.55-1.3)
[2024-02-10 11:09] LABS: PHOSPHOROUS 2.7 mg/dL (2.5-4.9)
[2024-02-10 11:10] LABS: BILIRUBIN,TOTAL 0.3 mg/dL (0.2-1); TOT PROT 5.7 g/dl (6.4-8.2)
[2024-02-10] MEDS: oxyCODONE HCL 5 MG TABLET PO PRN (15:54)
[2024-02-10] MEDS: MAGNESIUM SULF 50% (8.12 MEQ/2 ML-1 GM VIAL) IVPB ONE (15:54)
[2024-02-10] MEDS: INSULIN ASPART SLIDING SCALE (NOVOLOG) 1 VIAL SQ SCH (16:49)
[2024-02-11] MEDS: ACETAMINOPHEN 325 MG TABLET (FP) PO PRN (04:04)
[2024-02-11] MEDS: TRIMETHOBENZAMIDE HCL 200MG/2ML INJ IM ONE (06:46)
[2024-02-11] MEDS ORDERED: INSULIN (LEVEMIR) 100 UNITS/ML UNITS SQ ONE (06:58)
[2024-02-11] MEDS: ATORVASTATIN CA 10 MG TABLET (FP) PO SCH (09:27)
[2024-02-11] MEDS: ASPIRIN COATED 81 MG TABLET.EC PO SCH (09:27)
[2024-02-11] MEDS: FOLIC ACID 1 MG TABLET (FP) PO SCH (09:28)
[2024-02-11] MEDS: ENOXAPARIN NA (PORCINE) 40 MG/0.4 ML DISP.SYRIN SQ SCH (09:28)
[2024-02-11] MEDS: NAPH,MB-DB/K PH,MBDB POWDER PACKET PO ONE (18:13)
[2024-02-11] MEDS: LIDOCAINE 4% PATCH TP ONE (23:43)
[2024-02-12 09:01] LABS: BASO % 1.1 % (0-2.0); EOS % 3.5 % (0-4.5); HEMATOCRIT 26.2 % (32.4-45.2); HEMOGLOBIN 7.7 GM/dL (10.7-15.3); LYMPH % 22.4 % (8-40); MCH 22.3 pg (25.7-33.7); MCHC 29.6 g/dl (32.0-36.0); MEAN CELL VOLUME 75.4 fl (80-96); MEAN PLT VOLUME 8.7 fl (7.5-11.1); MONO % 11.9 % (3.8-10.2); NEUT % 61.1 % (42.8-82.8); PLATELET COUNT 165 10^3/uL (134-434); RBC 3.47 M/mm3 (3.60-5.2); RDW 18.9 % (11.6-15.6); WHITE BLOOD COUNT 6.2 K/mm3 (4.0-10.0)
[2024-02-12 09:18] LABS: POTASSIUM 3.6 mmol/L (3.5-5.1)
[2024-02-12 09:20] LABS: ALBUMIN 2.8 g/dl (3.4-5.0); BLOOD UREA NITROGEN 15.7 mg/dL (7-18); CALCIUM 8.7 mg/dL (8.5-10.1); MAGNESIUM 1.6 mg/dL (1.8-2.4)
[2024-02-12 09:23] LABS: CREATININE 0.6 mg/dL (0.55-1.3); PHOSPHOROUS 3.4 mg/dL (2.5-4.9)
[2024-02-12 09:25] LABS: BILIRUBIN,TOTAL 0.3 mg/dL (0.2-1)
[2024-02-12] MEDS: LIDOCAINE PATCH REMOVAL MC ONE (12:31)
[2024-02-12] MEDS: MAGNESIUM 2GM/50ML STERILE WATER IVPB IVPB ONE (14:14)
[2024-02-12] MEDS: AMOX TR/POT CLAV 875MG/125MG TABLETS (FP) PO SCH (16:44)
[2024-02-12] MEDS: oxyCODONE HCL 5 MG TABLET PO PRN (20:59)
[2024-02-12] MEDS: LIDOCAINE 4% PATCH TP SCH (22:03)
[2024-02-13] MEDS: LIDOCAINE PATCH REMOVAL MC SCH ×2 (11:15→21:48)
[2024-02-13 11:27] LABS: HEMATOCRIT 29.7 % (32.4-45.2); HEMOGLOBIN 8.7 GM/dL (10.7-15.3); MCH 22.5 pg (25.7-33.7); MCHC 29.3 g/dl (32.0-36.0); MEAN PLT VOLUME 8.9 fl (7.5-11.1); PLATELET COUNT 169 10^3/uL (134-434); RBC 3.85 M/mm3 (3.60-5.2); RDW 20.5 % (11.6-15.6); WHITE BLOOD COUNT 7.4 K/mm3 (4.0-10.0)
[2024-02-13 11:41] LABS: POTASSIUM 4.2 mmol/L (3.5-5.1)
[2024-02-13 11:44] LABS: CALCIUM 8.7 mg/dL (8.5-10.1)
[2024-02-13 11:46] LABS: ALBUMIN 2.9 g/dl (3.4-5.0); BLOOD UREA NITROGEN 17.4 mg/dL (7-18); MAGNESIUM 1.7 mg/dL (1.8-2.4)
[2024-02-13 11:48] LABS: CREATININE 0.5 mg/dL (0.55-1.3); PHOSPHOROUS 3.8 mg/dL (2.5-4.9)
[2024-02-13 11:49] LABS: BILIRUBIN,TOTAL 0.4 mg/dL (0.2-1); TOT PROT 6.6 g/dl (6.4-8.2)
[2024-02-13 12:03] VITALS: BMI 33.7
[2024-02-13] MEDS: LIDOCAINE 4% PATCH TP SCH (14:59)
[2024-02-13] MEDS: MAGNESIUM 2GM/50ML STERILE WATER IVPB IVPB ONE (15:01)
[2024-02-13] MEDS: ACETAMINOPHEN 500 MG TABLET (FP) PO SCH (18:06)
[2024-02-14] MEDS: ONDANSETRON 4 MG/2 ML VIAL IVPUSH ONE ×2 (00:27→23:30)
[2024-02-14 10:14] LABS: HEMATOCRIT 29.9 % (32.4-45.2); HEMOGLOBIN 8.8 GM/dL (10.7-15.3); MCH 22.4 pg (25.7-33.7); MCHC 29.3 g/dl (32.0-36.0); MEAN CELL VOLUME 76.5 fl (80-96); PLATELET COUNT 161 10^3/uL (134-434); RBC 3.91 M/mm3 (3.60-5.2); RDW 20.9 % (11.6-15.6); WHITE BLOOD COUNT 5.1 K/mm3 (4.0-10.0)
[2024-02-14 10:53] LABS: CALCIUM 8.8 mg/dL (8.5-10.1)
[2024-02-14 10:54] LABS: ALBUMIN 3.1 g/dl (3.4-5.0); BLOOD UREA NITROGEN 21.5 mg/dL (7-18); MAGNESIUM 2.1 mg/dL (1.8-2.4)
[2024-02-14 10:57] LABS: CREATININE 0.6 mg/dL (0.55-1.3)
[2024-02-14 10:58] LABS: TOT PROT 6.5 g/dl (6.4-8.2)
[2024-02-14 10:59] LABS: BILIRUBIN,TOTAL 0.5 mg/dL (0.2-1)
[2024-02-14] MEDS: IRON SUCROSE INJECTION 200 MG in SODIUM CHLORIDE 100 ML IVPB ONE (21:47)
[2024-02-15 05:03] VITALS: RESP 18
[2024-02-16] MEDS: oxyCODONE HCL 5 MG TABLET PO PRN (05:46)
[2024-02-16] MEDS: TRIMETHOBENZAMIDE HCL 200MG/2ML INJ IM PRN (05:49)
[2024-02-16] MEDS: diphenhydrAMINE HCL 25 MG CAPSULE (FP) PO ONE (09:36)
[2024-02-16] MEDS: CELECOXIB 200 MG CAPSULE PO SCH (13:46)
[2024-02-17] MEDS: ACETAMINOPHEN 500 MG TABLET (FP) PO PRN (04:33)
[2024-02-17 08:37] VITALS: BP 128/66; PULSE 76; TEMP 97.9
== END 2024-02-17 16:25 | disposition home or self-care (01) | DRG 393 ==
LOC: FER 12:28 → JICU 19:59 → J6S 02-07 20:50
PROVIDERS: ADMIT Internal Medicine Pulmonary Disease; ATTEND Internal Medicine
PROC: 5A1935Z Respiratory Ventilation, Less than 24 Consecutive Hours (ICD-10-PCS; 2024-02-05)
PROC: 0BH17EZ Insertion of Endotracheal Airway into Trachea, Via Natural or Artificial Opening (ICD-10-PCS; 2024-02-05)
PROC: 0DC58ZZ Extirpation of Matter from Esophagus, Via Natural or Artificial Opening Endoscopic (ICD-10-PCS; principal; 2024-02-05 18:00)
DX: T18.128A Food in esophagus causing other injury, initial encounter (principal); J69.0 Pneumonitis due to inhalation of food and vomit; F11.20 Opioid dependence, uncomplicated; F13.20 Sedative, hypnotic or anxiolytic dependence, uncomplicated; R78.81 Bacteremia; W44.F3XA Food entering into or through a natural orifice, initial encounter; Y93.89 Activity, other specified; Y92.89 Other specified places as the place of occurrence of the external cause; Y99.8 Other external cause status; E03.9 Hypothyroidism, unspecified; I10 Essential (primary) hypertension; E78.5 Hyperlipidemia, unspecified; D64.9 Anemia, unspecified; R13.10 Dysphagia, unspecified; D50.9 Iron deficiency anemia, unspecified; K22.0 Achalasia of cardia; R91.1 Solitary pulmonary nodule; N20.0 Calculus of kidney; K52.9 Noninfective gastroenteritis and colitis, unspecified; E87.6 Hypokalemia; E83.42 Hypomagnesemia; E11.42 Type 2 diabetes mellitus with diabetic polyneuropathy; B95.2 Enterococcus as the cause of diseases classified elsewhere; K80.20 Calculus of gallbladder without cholecystitis without obstruction; Z79.84 Long term (current) use of oral hypoglycemic drugs
CPT/HCPCS: 0241U-QW; 36415; 36600; 71045-TC-FY; 71250-TC; 74176-TC; 74220-TC-FY; 76705-TC; 78226-TC; 80048; 80053; 82272; 82607; 82710; 82728; 82746; 82803; 82962; 83540; 83550; 83735; 84100; 84439; 84443; 85025; 85027; 85045; 85610; 85730; 86850; 86900; 86901; 87040; 87045; 87046; 87070; 87186; 87205; 87209; 94002; 94760; 97116-GP; 97161-GP; 99285-25; A9537; J0131; J1756

== ENCOUNTER 2024-03-05 04:23 | Inpatient (IN) | payer OTHER, BC ==
[2024-03-05] MEDS ORDERED: BUPIVACAINE HCL/PF 0.25% (2.5MG/ML) 10 ML VIAL ONE (07:24)
[2024-03-05] MEDS ORDERED: cefOXitin SODIUM 2 GM VIAL (RESTRICTED TO ID) IVPB ONE (07:24)
[2024-03-05] MEDS ORDERED: HEPARIN NA (PORCINE) 5,000 UNITS/ML 1ML VIAL ONE (07:24)
[2024-03-05] MEDS ORDERED: FENTANYL CITRATE/PF 50 MCG/ML VIAL ONE ×5 (07:28→12:46)
[2024-03-05] MEDS ORDERED: ROCURONIUM BROMIDE 50 MG/5 ML SYRINGE ONE ×2 (07:28→11:12)
[2024-03-05] MEDS ORDERED: PROPOFOL 20 ML ONE (07:28)
[2024-03-05] MEDS ORDERED: MIDAZOLAM HCL 2 MG/2 ML SINGLE DOSE VIAL ONE (07:29)
[2024-03-05] MEDS ORDERED: ACETAMINOPHEN INJECTION 100 ML IVPB ONE (08:28)
[2024-03-05] MEDS ORDERED: oxyCODONE HCL 5 MG TABLET PO PRN (08:50)
[2024-03-05] MEDS ORDERED: ONDANSETRON 4 MG/2 ML VIAL IVPUSH PRN (08:50)
[2024-03-05] MEDS ORDERED: INDOCYANINE GREEN 25 MG/10 ML VIAL IVPUSH ONE (09:08)
[2024-03-05] MEDS: cefOXitin SODIUM 2 GM VIAL (RESTRICTED TO ID) IVPB ONE (09:45)
[2024-03-05] MEDS ORDERED: SUGAMMADEX SODIUM 200 MG/2 ML VIAL ONE (10:06)
[2024-03-05] MEDS: BUPIVACAINE HCL/PF 0.25% (2.5MG/ML) 10 ML VIAL IJ ONE ×2 (11:46)
[2024-03-05] MEDS ORDERED: HYDROmorphone HCl 2 MG/ML VIAL ONE (12:27)
[2024-03-05] MEDS: HYDROmorphone HCl 2 MG/ML VIAL IVPUSH PRN (13:30)
[2024-03-05] MEDS: LACTATED RINGERS SOLUTION 1,000 ML IV SCH (15:16)
[2024-03-05] MEDS: oxyCODONE HCL 5 MG TABLET PO PRN (15:28)
[2024-03-05] MEDS: ACETAMINOPHEN 1000 MG/100 ML BAG IVPB ONE (18:02)
[2024-03-05] MEDS ORDERED: INSULIN (NOVOLOG) ASPART 100 UNITS/ML 10ML VIAL ONE (21:05)
[2024-03-05] MEDS: GABAPENTIN 300 MG CAPSULE PO SCH (21:42)
[2024-03-05] MEDS: ATORVASTATIN CA 10 MG TABLET (FP) PO SCH (21:42)
[2024-03-05] MEDS: ALPRAZolam 1 MG TABLET PO PRN (21:42)
[2024-03-05] MEDS: INSULIN ASPART SLIDING SCALE (NOVOLOG) 1 VIAL SQ SCH (21:43)
[2024-03-05] MEDS ORDERED: OXYBUTYNIN CHLORIDE 15 MG PO SCH (22:00)
[2024-03-05] MEDS: LACTATED RINGERS SOLUTION 1000 ML INFUS.BAG IV ONE (23:37)
[2024-03-06] MEDS: LEVOTHYROXINE NA 125 MCG TABLET (FP) PO SCH (06:03)
[2024-03-06] MEDS: ACETAMINOPHEN 325 MG TABLET (FP) PO PRN (06:03)
[2024-03-06] MEDS: FAMOTIDINE 20 MG TABLET PO SCH (10:37)
[2024-03-06] MEDS: ASPIRIN COATED 81 MG TABLET.EC PO SCH (10:37)
[2024-03-06] MEDS: SOLIFENACIN SUCCINATE 5 MG TAB PO SCH (10:37)
[2024-03-06 10:42] LABS: BASO % 0.9 % (0-2.0); EOS % 2.2 % (0-4.5); HEMATOCRIT 18.7 % (32.4-45.2); LYMPH % 26.7 % (8-40); MCH 23.2 pg (25.7-33.7); MCHC 30.3 g/dl (32.0-36.0); MEAN CELL VOLUME 76.7 fl (80-96); MEAN PLT VOLUME 8.8 fl (7.5-11.1); MONO % 13.8 % (3.8-10.2); NEUT % 56.4 % (42.8-82.8); PLATELET COUNT 133 10^3/uL (134-434); RBC 2.44 M/mm3 (3.60-5.2); RDW 21.4 % (11.6-15.6); WHITE BLOOD COUNT 5.4 K/mm3 (4.0-10.0)
[2024-03-06 10:45] LABS: HEMOGLOBIN 5.7 GM/dL (10.7-15.3)
[2024-03-06 10:59] LABS: CALCIUM 7.6 mg/dL (8.5-10.1)
[2024-03-06 11:00] LABS: BLOOD UREA NITROGEN 19.4 mg/dL (7-18); MAGNESIUM 1.2 mg/dL (1.8-2.4)
[2024-03-06 11:04] LABS: CREATININE 1.1 mg/dL (0.55-1.3); PHOSPHOROUS 5.1 mg/dL (2.5-4.9)
[2024-03-06 11:09] LABS: ANISOCYTOSIS 2+; MACROCYTOSIS 0
[2024-03-06] MEDS: ACETAMINOPHEN 1000 MG/100 ML BAG IVPB ONE (12:24)
[2024-03-06] MEDS: MAGNESIUM OXIDE 400 MG TABLET (FP) PO ONE (14:29)
[2024-03-06] MEDS: MAGNESIUM SULF 50% (8.12 MEQ/2 ML-1 GM VIAL) IVPB SCH (15:09)
[2024-03-06] MEDS: TRANEXAMIC ACID - 1,000 MG in SODIUM CHLORIDE 50 ML IVPB SCH ×2 (15:36→22:00)
[2024-03-06] MEDS: TRANEXAMIC ACID 1000 MG/10 ML VIAL IVPUSH SCH (17:01)
[2024-03-06] MEDS ORDERED: oxyCODONE HCL 5 MG TABLET PO PRN (17:42)
[2024-03-06] MEDS ORDERED: ALPRAZolam 1 MG TABLET PO PRN (17:42)
[2024-03-06] MEDS: MAG HYDROX/AL HYDROX/SIMETH 30 ML UNIT-DOSE CUP PO ONE (18:06)
[2024-03-06 21:18] LABS: BASO % 0.5 % (0-2.0); HEMATOCRIT 24.1 % (32.4-45.2); HEMOGLOBIN 7.5 GM/dL (10.7-15.3); LYMPH % 27.1 % (8-40); MCH 24.8 pg (25.7-33.7); MEAN PLT VOLUME 8.6 fl (7.5-11.1); MONO % 15.4 % (3.8-10.2); PLATELET COUNT 115 10^3/uL (134-434); RBC 3.02 M/mm3 (3.60-5.2); RDW 19.7 % (11.6-15.6); WHITE BLOOD COUNT 5.3 K/mm3 (4.0-10.0)
[2024-03-06] MEDS: MUPIROCIN 2% TOPICAL OINTMENT FOR DECOLONIZATION NS SCH (22:00)
[2024-03-06] MEDS: CHLORHEXIDINE GLUCONATE 4% CLEANSER FOR DECOLONIZATION TP SCH (22:00)
[2024-03-06] MEDS: GABAPENTIN 300 MG CAPSULE PO SCH (22:02)
[2024-03-06] MEDS: LACTATED RINGERS SOLUTION 1,000 ML IV SCH (22:02)
[2024-03-06] MEDS: ATORVASTATIN CA 10 MG TABLET (FP) PO SCH (22:02)
[2024-03-06] MEDS: INSULIN ASPART SLIDING SCALE (NOVOLOG) 1 VIAL SQ SCH (22:12)
[2024-03-06] MEDS ORDERED: DEXTROSE 50%-WATER 25 GM/50 ML DISP.SYRIN ONE (22:14)
[2024-03-06] MEDS: DEXTROSE 50%-WATER - 25 GM/50 ML VIAL IVPUSH PRN (22:36)
[2024-03-07] MEDS: oxyCODONE HCL 5 MG TABLET PO PRN (03:24)
[2024-03-07] MEDS: LEVOTHYROXINE NA 125 MCG TABLET (FP) PO SCH (06:10)
[2024-03-07 06:42] LABS: BASO % 0.6 % (0-2.0); EOS % 4.6 % (0-4.5); HEMATOCRIT 24.1 % (32.4-45.2); HEMOGLOBIN 7.6 GM/dL (10.7-15.3); LYMPH % 25.7 % (8-40); MCH 25.1 pg (25.7-33.7); MCHC 31.7 g/dl (32.0-36.0); MEAN CELL VOLUME 79.1 fl (80-96); MEAN PLT VOLUME 8.6 fl (7.5-11.1); MONO % 11.4 % (3.8-10.2); NEUT % 57.7 % (42.8-82.8); PLATELET COUNT 125 10^3/uL (134-434); RBC 3.04 M/mm3 (3.60-5.2); RDW 19.2 % (11.6-15.6); WHITE BLOOD COUNT 4.9 K/mm3 (4.0-10.0)
[2024-03-07 06:49] LABS: POTASSIUM 4.1 mmol/L (3.5-5.1)
[2024-03-07 06:53] LABS: CALCIUM 7.9 mg/dL (8.5-10.1)
[2024-03-07 06:54] LABS: ALBUMIN 2.7 g/dl (3.4-5.0); BLOOD UREA NITROGEN 15.9 mg/dL (7-18); MAGNESIUM 1.3 mg/dL (1.8-2.4)
[2024-03-07 06:57] LABS: CREATININE 0.9 mg/dL (0.55-1.3)
[2024-03-07 06:59] LABS: BILIRUBIN,TOTAL 0.4 mg/dL (0.2-1); TOT PROT 5.3 g/dl (6.4-8.2)
[2024-03-07 07:52] LABS: INR 1.24 (0.83-1.09); PROTHROMBIN TIME (PATIENT) 13.9 SEC (9.7-13.0)
[2024-03-07] MEDS: ACETAMINOPHEN 325 MG TABLET (FP) PO PRN (10:08)
[2024-03-07] MEDS: SOLIFENACIN SUCCINATE 5 MG TAB PO SCH (10:11)
[2024-03-07] MEDS: FAMOTIDINE 20 MG TABLET PO SCH (10:11)
[2024-03-07 10:31] LABS: BASO % 0.8 % (0-2.0); EOS % 4.6 % (0-4.5); HEMATOCRIT 24.6 % (32.4-45.2); HEMOGLOBIN 7.8 GM/dL (10.7-15.3); LYMPH % 24.6 % (8-40); MCH 25.1 pg (25.7-33.7); MCHC 31.6 g/dl (32.0-36.0); MEAN CELL VOLUME 79.4 fl (80-96); MONO % 11.5 % (3.8-10.2); NEUT % 58.5 % (42.8-82.8); PLATELET COUNT 127 10^3/uL (134-434); RBC 3.09 M/mm3 (3.60-5.2); RDW 19.6 % (11.6-15.6)
[2024-03-07] MEDS: MAGNESIUM SULFATE IN WATER 2 GM/50 ML IVPB IVPB ONE (12:00)
[2024-03-07] MEDS: PIPERACILLIN/TAZOB 3.375 GM 3.375 GM in DEXTROSE 5%-WATER - 50 ML IVPB SCH ×2 (13:53→16:42)
[2024-03-07 18:25] LABS: HEMATOCRIT 25.8 % (32.4-45.2); HEMOGLOBIN 8.1 GM/dL (10.7-15.3); RBC 3.24 M/mm3 (3.60-5.2); WHITE BLOOD COUNT 5.6 K/mm3 (4.0-10.0)
[2024-03-07 18:26] LABS: BASO % 0.5 % (0-2.0); EOS % 4.7 % (0-4.5); LYMPH % 20.5 % (8-40); MCHC 31.3 g/dl (32.0-36.0); MEAN CELL VOLUME 79.8 fl (80-96); MEAN PLT VOLUME 8.8 fl (7.5-11.1); MONO % 12.7 % (3.8-10.2); NEUT % 61.6 % (42.8-82.8); PLATELET COUNT 114 10^3/uL (134-434); RDW 18.4 % (11.6-15.6)
[2024-03-08 07:51] LABS: BASO % 0.5 % (0-2.0); EOS % 5.4 % (0-4.5); HEMOGLOBIN 8.7 GM/dL (10.7-15.3); MCH 25.5 pg (25.7-33.7); MCHC 32.2 g/dl (32.0-36.0); MEAN CELL VOLUME 79.2 fl (80-96); MEAN PLT VOLUME 9.1 fl (7.5-11.1); MONO % 12.1 % (3.8-10.2); PLATELET COUNT 120 10^3/uL (134-434); RBC 3.41 M/mm3 (3.60-5.2); RDW 19.6 % (11.6-15.6); WHITE BLOOD COUNT 5.7 K/mm3 (4.0-10.0)
[2024-03-08 07:59] LABS: ALBUMIN 2.7 g/dl (3.4-5.0); CALCIUM 8.1 mg/dL (8.5-10.1)
[2024-03-08 08:00] LABS: BLOOD UREA NITROGEN 14.4 mg/dL (7-18); MAGNESIUM 1.8 mg/dL (1.8-2.4)
[2024-03-08 08:02] LABS: CREATININE 0.6 mg/dL (0.55-1.3)
[2024-03-08 08:03] LABS: PHOSPHOROUS 2.7 mg/dL (2.5-4.9)
[2024-03-08 08:04] LABS: BILIRUBIN,TOTAL 0.4 mg/dL (0.2-1); TOT PROT 5.6 g/dl (6.4-8.2)
[2024-03-08] MEDS: PIPERACILLIN/TAZOB 3.375 GM 3.375 GM in DEXTROSE 5%-WATER - 50 ML IVPB SCH (09:04)
[2024-03-08] MEDS ORDERED: BENZONATATE 200 MG CAPSULE PO PRN (14:58)
[2024-03-08] MEDS ORDERED: MIDAZOLAM HCL 2 MG/2 ML SINGLE DOSE VIAL ONE (15:30)
[2024-03-08] MEDS ORDERED: FENTANYL CITRATE/PF 50 MCG/ML VIAL ONE ×2 (15:30→17:51)
[2024-03-08] MEDS ORDERED: LIDOCAINE HCL/PF 2% SDV 5ML VIAL ONE (15:30)
[2024-03-08] MEDS ORDERED: PROPOFOL 20 ML ONE (15:30)
[2024-03-08] MEDS ORDERED: BUPIVACAINE HCL/PF 0.25% (2.5MG/ML) 10 ML VIAL ONE (15:40)
[2024-03-08] MEDS ORDERED: SUCCINYLCHOLINE CHLORIDE 200 MG/10 ML SYRINGE ONE (16:11)
[2024-03-08 16:18] VITALS: BMI 30.2
[2024-03-08] MEDS ORDERED: DEXAMETHASONE SOD PHOSPHATE 4 MG/1 ML VIAL ONE (16:31)
[2024-03-08] MEDS ORDERED: oxyCODONE HCL 5 MG TABLET PO PRN (18:39)
[2024-03-08] MEDS ORDERED: ALPRAZolam 1 MG TABLET PO PRN (18:42)
[2024-03-08] MEDS: oxyCODONE HCL 5 MG TABLET PO PRN (19:26)
[2024-03-08 19:33] LABS: BASO % 0.4 % (0-2.0); EOS % 1.6 % (0-4.5); HEMATOCRIT 29.1 % (32.4-45.2); MCH 25.1 pg (25.7-33.7); MCHC 31.1 g/dl (32.0-36.0); MEAN CELL VOLUME 80.7 fl (80-96); MEAN PLT VOLUME 8.5 fl (7.5-11.1); PLATELET COUNT 119 10^3/uL (134-434); RBC 3.61 M/mm3 (3.60-5.2); RDW 19.7 % (11.6-15.6); WHITE BLOOD COUNT 5.9 K/mm3 (4.0-10.0)
[2024-03-08 19:54] LABS: ALBUMIN 2.7 g/dl (3.4-5.0); BLOOD UREA NITROGEN 10.4 mg/dL (7-18); MAGNESIUM 1.5 mg/dL (1.8-2.4)
[2024-03-08 19:57] LABS: CREATININE 0.6 mg/dL (0.55-1.3); PHOSPHOROUS 2.7 mg/dL (2.5-4.9)
[2024-03-08 19:59] LABS: BILIRUBIN,TOTAL 0.4 mg/dL (0.2-1); TOT PROT 5.7 g/dl (6.4-8.2)
[2024-03-08] MEDS: MAGNESIUM SULFATE IN WATER 2 GM/50 ML IVPB IVPB ONE (20:21)
[2024-03-08] MEDS: BENZOCAINE/MENTHOL 1 EACH LOZENGE MM PRN (20:27)
[2024-03-08] MEDS ORDERED: INSULIN (NOVOLOG) ASPART 100 UNITS/ML 10ML VIAL ONE (20:35)
[2024-03-09 06:58] LABS: BASO % 0.3 % (0-2.0); EOS % 0.1 % (0-4.5); HEMATOCRIT 25.3 % (32.4-45.2); HEMOGLOBIN 8.1 GM/dL (10.7-15.3); LYMPH % 11.3 % (8-40); MCH 25.7 pg (25.7-33.7); MCHC 32.1 g/dl (32.0-36.0); MEAN CELL VOLUME 79.9 fl (80-96); MEAN PLT VOLUME 8.7 fl (7.5-11.1); MONO % 10.4 % (3.8-10.2); NEUT % 77.9 % (42.8-82.8); PLATELET COUNT 119 10^3/uL (134-434); RBC 3.17 M/mm3 (3.60-5.2); RDW 19.1 % (11.6-15.6); WHITE BLOOD COUNT 5.6 K/mm3 (4.0-10.0)
[2024-03-09 07:15] LABS: POTASSIUM 4.3 mmol/L (3.5-5.1)
[2024-03-09 07:17] LABS: ALBUMIN 2.6 g/dl (3.4-5.0); BLOOD UREA NITROGEN 10.4 mg/dL (7-18); MAGNESIUM 1.8 mg/dL (1.8-2.4)
[2024-03-09 07:20] LABS: CREATININE 0.5 mg/dL (0.55-1.3); PHOSPHOROUS 3.1 mg/dL (2.5-4.9)
[2024-03-09 07:22] LABS: BILIRUBIN,TOTAL 0.4 mg/dL (0.2-1); TOT PROT 5.4 g/dl (6.4-8.2)
[2024-03-09] MEDS ORDERED: BENZONATATE 200 MG CAPSULE PO PRN (14:11)
[2024-03-09] MEDS ORDERED: BENZOCAINE/MENTHOL 1 EACH LOZENGE MM PRN (14:11)
[2024-03-09] MEDS ORDERED: oxyCODONE HCL 5 MG TABLET PO PRN (14:11)
[2024-03-09] MEDS: INSULIN ASPART SLIDING SCALE (NOVOLOG) 1 VIAL SQ SCH (17:11)
[2024-03-09] MEDS: LORATADINE 10 MG TABLET PO SCH (17:15)
[2024-03-09] MEDS: PIPERACILLIN/TAZOB 3.375 GM 3.375 GM in DEXTROSE 5%-WATER - 50 ML IVPB SCH (17:16)
[2024-03-09] MEDS: oxyCODONE HCL 5 MG TABLET PO PRN (17:35)
[2024-03-09] MEDS ORDERED: CHLORHEXIDINE GLUCONATE 4% CLEANSER FOR DECOLONIZATION TP SCH (22:00)
[2024-03-09] MEDS ORDERED: MUPIROCIN 2% TOPICAL OINTMENT FOR DECOLONIZATION NS SCH (22:00)
[2024-03-09] MEDS: GABAPENTIN 300 MG CAPSULE PO SCH (22:39)
[2024-03-09] MEDS: ATORVASTATIN CA 10 MG TABLET (FP) PO SCH (22:39)
[2024-03-10] MEDS: LEVOTHYROXINE NA 125 MCG TABLET (FP) PO SCH (06:31)
[2024-03-10 08:54] LABS: BASO % 0.5 % (0-2.0); EOS % 6.5 % (0-4.5); HEMATOCRIT 27.1 % (32.4-45.2); HEMOGLOBIN 8.3 GM/dL (10.7-15.3); LYMPH % 23.9 % (8-40); MCH 25.2 pg (25.7-33.7); MCHC 30.6 g/dl (32.0-36.0); MEAN CELL VOLUME 82.4 fl (80-96); MEAN PLT VOLUME 8.7 fl (7.5-11.1); MONO % 11.4 % (3.8-10.2); NEUT % 57.7 % (42.8-82.8); PLATELET COUNT 131 10^3/uL (134-434); RBC 3.28 M/mm3 (3.60-5.2); RDW 20.2 % (11.6-15.6); WHITE BLOOD COUNT 6.1 K/mm3 (4.0-10.0)
[2024-03-10] MEDS: FAMOTIDINE 20 MG TABLET PO SCH (09:12)
[2024-03-10] MEDS: SOLIFENACIN SUCCINATE 5 MG TAB PO SCH (09:12)
[2024-03-10 09:15] LABS: POTASSIUM 4.2 mmol/L (3.5-5.1)
[2024-03-10 09:23] LABS: ALBUMIN 2.5 g/dl (3.4-5.0); BLOOD UREA NITROGEN 14.4 mg/dL (7-18); CALCIUM 8.1 mg/dL (8.5-10.1); MAGNESIUM 1.5 mg/dL (1.8-2.4)
[2024-03-10 09:26] LABS: CREATININE 0.6 mg/dL (0.55-1.3)
[2024-03-10 09:27] LABS: BILIRUBIN,TOTAL 0.5 mg/dL (0.2-1); TOT PROT 5.4 g/dl (6.4-8.2)
[2024-03-11 11:07] LABS: BASO % 0.6 % (0-2.0); EOS % 5.6 % (0-4.5); HEMATOCRIT 29.1 % (32.4-45.2); HEMOGLOBIN 9.1 GM/dL (10.7-15.3); LYMPH % 18.8 % (8-40); MCH 25.9 pg (25.7-33.7); MCHC 31.3 g/dl (32.0-36.0); MEAN CELL VOLUME 82.6 fl (80-96); MEAN PLT VOLUME 8.8 fl (7.5-11.1); MONO % 11.1 % (3.8-10.2); NEUT % 63.9 % (42.8-82.8); PLATELET COUNT 141 10^3/uL (134-434); RBC 3.52 M/mm3 (3.60-5.2); WHITE BLOOD COUNT 5.8 K/mm3 (4.0-10.0)
[2024-03-11 11:18] LABS: POTASSIUM 3.8 mmol/L (3.5-5.1)
[2024-03-11 11:21] LABS: ALBUMIN 2.4 g/dl (3.4-5.0); CALCIUM 8.6 mg/dL (8.5-10.1); MAGNESIUM 1.5 mg/dL (1.8-2.4)
[2024-03-11 11:23] LABS: BLOOD UREA NITROGEN 12.9 mg/dL (7-18)
[2024-03-11 11:25] LABS: CREATININE 0.5 mg/dL (0.55-1.3)
[2024-03-11 11:26] LABS: TOT PROT 5.5 g/dl (6.4-8.2)
[2024-03-11 11:29] LABS: BILIRUBIN,TOTAL 1.2 mg/dL (0.2-1)
[2024-03-11 11:49] LABS: ANISOCYTOSIS 2+; MACROCYTOSIS 0
[2024-03-11] MEDS: MAGNESIUM 2GM/50ML STERILE WATER IVPB IVPB ONE (14:49)
[2024-03-11] MEDS: AMOX TR/POT CLAV 875MG/125MG TABLETS (FP) PO SCH (17:45)
[2024-03-11] MEDS: OXYBUTYNIN CHLORIDE 5 MG TABLET PO SCH (21:35)
[2024-03-12 06:42] VITALS: RESP 20
[2024-03-12] MEDS: LACTOBACILLUS ACIDOPHILUS 1 TABLET PO SCH (09:49)
[2024-03-12] MEDS: ALPRAZolam 1 MG TABLET PO PRN (09:49)
[2024-03-12 23:03] VITALS: BP 119/92; PULSE 92; TEMP 97.7
== END 2024-03-13 15:02 | disposition home health service (06) | DRG 418 ==
LOC: JASU-SURG 04:23 → SUATTDRO 04:23 → JASUSAT 04:23 → J8W 15:07 → JASUSAT 15:08 → J8W 15:08 → JICU 03-06 17:21 → J8W 03-09 13:31
PROVIDERS: ADMIT Internal Medicine; ATTEND Nurse Practitioner Family
PROC: 8E0W4CZ Robotic Assisted Procedure of Trunk Region, Percutaneous Endoscopic Approach (ICD-10-PCS; 2024-03-05)
PROC: 0W9G4ZZ Drainage of Peritoneal Cavity, Percutaneous Endoscopic Approach (ICD-10-PCS; principal; 2024-03-05 10:30)
PROC: 30233N1 Transfusion of Nonautologous Red Blood Cells into Peripheral Vein, Percutaneous Approach (ICD-10-PCS; 2024-03-06)
DX: K80.20 Calculus of gallbladder without cholecystitis without obstruction (principal); D62 Acute posthemorrhagic anemia; K91.870 Postprocedural hematoma of a digestive system organ or structure following a digestive system procedure; Y83.9 Surgical procedure, unspecified as the cause of abnormal reaction of the patient, or of later complication, without mention of misadventure at the time of the procedure; I95.81 Postprocedural hypotension; E11.9 Type 2 diabetes mellitus without complications; K66.0 Peritoneal adhesions (postprocedural) (postinfection); I10 Essential (primary) hypertension; J44.9 Chronic obstructive pulmonary disease, unspecified; E03.9 Hypothyroidism, unspecified; E78.5 Hyperlipidemia, unspecified; K21.9 Gastro-esophageal reflux disease without esophagitis
CPT/HCPCS: 36415; 36430; 74176-TC; 80048; 80053; 82962; 83735; 84100; 85025; 85610; 86850; 86900; 86901; 86922; 87635; 88304-TC; 94760; 97116-GP; 97161-GP; J0131; J1644; P9058

== ENCOUNTER 2025-03-02 19:04 | Observation (INO) | payer OTHER, BC ==
[2025-03-02 19:18] LABS: EPITHELIAL CELLS FEW /hpf
[2025-03-02] MEDS ORDERED: POTASSIUM CHLORIDE TABS 20 MEQ TABLET.ER (FP) PO ONE (19:32)
[2025-03-02] MEDS: POTASSIUM CHLORIDE TABS 20 MEQ TABLET.ER (FP) PO ONE (19:50)
[2025-03-02] MEDS: SULFAMETHOXAZOLE/TRIMETHOPRIM 800MG/160MG D.S. TABLET PO ONE (20:04)
[2025-03-02 20:29] LABS: HEMATOCRIT 33.6 % (34.1-44.9); HEMOGLOBIN 10.2 g/dL (11.2-15.7); MCHC 30.4 g/dl (32.2-35.5); MEAN CELL VOLUME 86.2 fl (79.4-94.8); MEAN PLT VOLUME 9.8 fl (9.4-12.3); PLATELET COUNT 205 x10^3/uL (182-369); RDW 17.1 % (12.4-16.6)
[2025-03-02 20:55] LABS: ALBUMIN 3.7 g/dl (3.4-5.0); BILIRUBIN,TOTAL 0.3 mg/dl (0.2-1); CALCIUM 8.7 mg/dl (8.5-10.1); CREATININE 0.5 mg/dl (0.6-1.3); POTASSIUM 4.1 mmol/L (3.5-5.1); TOT PROT 6.6 g/dl (6.4-8.2)
[2025-03-02] MEDS ORDERED: DOCUSATE SODIUM 100 MG CAPSULE (FP) PO PRN (22:02)
[2025-03-02] MEDS ORDERED: ACETAMINOPHEN 325 MG TABLET (FP) PO PRN (22:02)
[2025-03-02 22:21] LABS: MAGNESIUM 1.3 mg/dL (1.8-2.4); PHOSPHOROUS 3.6 (2.5-4.9)
[2025-03-02 23:41] VITALS: BMI 26.4
[2025-03-03] MEDS: ACETAMINOPHEN 500 MG TABLET (FP) PO PRN (00:48)
[2025-03-03] MEDS: MAGNESIUM SULFATE IN WATER 2 GM/50 ML IVPB IVPB ONE (00:48)
[2025-03-03] MEDS: MELATONIN 5 MG TABLETS PO PRN (00:49)
[2025-03-03] MEDS: LIDOCAINE 5% TOPICAL PATCH TP ONE (00:49)
[2025-03-03] MEDS ORDERED: GABAPENTIN 100 MG CAPSULE PO SCH (01:30)
[2025-03-03] MEDS: GABAPENTIN 300 MG CAPSULE PO SCH (01:31)
[2025-03-03] MEDS ORDERED: ZINC OXIDE/PETROLATUM,WHITE 1 APPLIC OINT...G. TP PRN (02:43)
[2025-03-03] MEDS: LEVOTHYROXINE NA 125 MCG TABLET (FP) PO SCH (06:05)
[2025-03-03] MEDS: INSULIN ASPART SLIDING SCALE (NOVOLOG) 1 VIAL SQ SCH (06:52)
[2025-03-03 07:56] LABS: ABSOLUTE IMMATURE GRANULOCYTES 0.01 x10^3/uL (0.0-0.031); BASOPHILS # 0.04 x10^3/uL (0.01-0.08); EOSINOPHIL % 2.6 % (0.7-5.8); EOSINOPHILS # 0.17 x10^3/uL (0.04-0.36); HEMATOCRIT 31.4 % (34.1-44.9); HEMOGLOBIN 9.5 g/dL (11.2-15.7); MCHC 30.3 g/dl (32.2-35.5); MEAN CELL VOLUME 85.8 fl (79.4-94.8); MEAN PLT VOLUME 10.4 fl (9.4-12.3); MONOCYTE # 0.62 x10^3/uL (0.24-0.86); MONOCYTE % 9.4 % (4.7-12.5); PLATELET COUNT 194 x10^3/uL (182-369)
[2025-03-03] MEDS: oxyCODONE HCL 5 MG TABLET PO ONE (09:12)
[2025-03-03] MEDS: PANTOPRAZOLE 40 MG TABLET PO SCH (09:12)
[2025-03-03] MEDS: ASPIRIN COATED 81 MG TABLET.EC PO SCH (09:12)
[2025-03-03] MEDS: FAMOTIDINE 20 MG TABLET PO SCH (09:12)
[2025-03-03] MEDS: LIDOCAINE PATCH REMOVAL MC ONE (09:16)
[2025-03-03] MEDS: LIDOCAINE PATCH REMOVAL MC SCH (09:16)
[2025-03-03 09:35] LABS: CREATININE 0.6 mg/dl (0.6-1.3)
[2025-03-03 09:36] LABS: CALCIUM 8.5 mg/dl (8.5-10.1); MAGNESIUM 1.8 mg/dL (1.8-2.4); POTASSIUM 4.2 mmol/L (3.5-5.1)
[2025-03-03] MEDS: PATIENT'S OWN MEDICATION (NON-FORMULARY) (Oxybutynin Chloride [Oxybutynin Chloride Er] 15 PO SCH (10:58)
[2025-03-03] MEDS: oxyCODONE HCL 5 MG TABLET PO PRN (11:34)
[2025-03-03] MEDS: HEPARIN NA (PORCINE) 5,000 UNITS/ML 1ML VIAL SQ SCH (21:19)
[2025-03-03] MEDS: LIDOCAINE 5% TOPICAL PATCH TP SCH (21:20)
[2025-03-03] MEDS: ATORVASTATIN CA 10 MG TABLET (FP) PO SCH (21:21)
[2025-03-04] MEDS: CHOLECALCIFEROL (VIT D3) 1,000 UNIT (25 MCG) TABLET PO SCH (09:05)
[2025-03-04] MEDS: PYRIDOXINE HCL (B-6) 50 MG TABLET (FP) PO SCH (09:05)
[2025-03-04] MEDS: CYANOCOBALAMIN 1,000 MCG TABLET (FP) PO SCH (09:05)
[2025-03-04] MEDS: SOLIFENACIN SUCCINATE 5 MG TAB PO SCH (09:57)
[2025-03-04 22:00] VITALS: RESP 17
[2025-03-05 06:20] VITALS: BP 137/73; PULSE 83; TEMP 97.7
== END 2025-03-05 08:21 | disposition home or self-care (01) ==
LOC: FER 19:04 → FM/S 21:01
PROVIDERS: ADMIT Internal Medicine; ATTEND Internal Medicine
DX: N39.0 Urinary tract infection, site not specified (principal); I10 Essential (primary) hypertension; E78.5 Hyperlipidemia, unspecified; E11.9 Type 2 diabetes mellitus without complications; J44.9 Chronic obstructive pulmonary disease, unspecified; K21.9 Gastro-esophageal reflux disease without esophagitis; G51.0 Bell's palsy; Z88.5 Allergy status to narcotic agent; Z88.8 Allergy status to other drugs, medicaments and biological substances
CPT/HCPCS: 36415; 71045-TC-FY; 80048; 80053; 81003; 81015; 82962; 83735; 84100; 84439; 84443; 85025; 85027; 93005; 96365; 96367; 96372; 97116-GP; 99285-25; G0378; J1644

== ENCOUNTER 2025-03-16 14:53 | Inpatient (IN) | payer OTHER, BC ==
[2025-03-16] MEDS ORDERED: DEXTROSE 50%-WATER 25 GM/50 ML DISP.SYRIN ONE ×2 (15:51→20:05)
[2025-03-16 15:54] LABS: ABSOLUTE IMMATURE GRANULOCYTES 0.02 x10^3/uL (0.0-0.031); BASOPHILS # 0.02 x10^3/uL (0.01-0.08); EOSINOPHIL % 0.4 % (0.7-5.8); EOSINOPHILS # 0.05 x10^3/uL (0.04-0.36); HEMATOCRIT 36.3 % (34.1-44.9); HEMOGLOBIN 11.2 g/dL (11.2-15.7); MCHC 30.9 g/dl (32.2-35.5); MEAN CELL VOLUME 83.3 fl (79.4-94.8); MEAN PLT VOLUME 9.7 fl (9.4-12.3); MONOCYTE # 0.72 x10^3/uL (0.24-0.86); PLATELET COUNT 228 x10^3/uL (182-369); RDW 15.4 % (12.4-16.6)
[2025-03-16] MEDS: DEXTROSE 50%-WATER - 25 GM/50 ML VIAL IVPUSH ONE ×2 (15:55→20:00)
[2025-03-16 16:18] LABS: ALBUMIN 4.3 g/dl (3.4-5.0); BILIRUBIN,TOTAL 0.4 mg/dl (0.2-1); CALCIUM 9.5 mg/dl (8.5-10.1); CREATININE 0.7 mg/dl (0.6-1.3); POTASSIUM 3.4 mmol/L (3.5-5.1); TOT PROT 7.5 g/dl (6.4-8.2)
[2025-03-16] MEDS ORDERED: cefTRIAXone SODIUM 1 GM VIAL ONE (16:18)
[2025-03-16] MEDS: CEFTRIAXONE 1,000 MG in DEXTROSE 5%-WATER - 50 ML IVPB ONE (16:26)
[2025-03-16] MEDS: SODIUM CHLORIDE 0.9% 500 ML INFUS.BAG IV ONE (16:36)
[2025-03-16 17:18] LABS: EPITHELIAL CELLS FEW /hpf
[2025-03-16] MEDS ORDERED: ACETAMINOPHEN 1000 MG/100 ML BAG IVPB PRN (20:43)
[2025-03-16 20:57] LABS: MAGNESIUM 1.8 mg/dL (1.8-2.4); PHOSPHOROUS 5.2 (2.5-4.9)
[2025-03-16 21:26] VITALS: BMI 25.7
[2025-03-16] MEDS: D5-NS + 20 MEQ KCL - 20 MEQ/1,000 ML INFUS.BAG IV SCH (21:44)
[2025-03-16] MEDS: MAGNESIUM 1GM/D5W 100ML - 100 ML IVPB IVPB ONE (21:44)
[2025-03-17] MEDS: LEVOTHYROXINE NA 125 MCG TABLET (FP) PO SCH (06:18)
[2025-03-17] MEDS: GABAPENTIN 100 MG CAPSULE PO SCH (06:18)
[2025-03-17 08:06] LABS: ABSOLUTE IMMATURE GRANULOCYTES 0.02 x10^3/uL (0.0-0.031); BASOPHILS # 0.04 x10^3/uL (0.01-0.08); EOSINOPHIL % 1.2 % (0.7-5.8); EOSINOPHILS # 0.09 x10^3/uL (0.04-0.36); HEMATOCRIT 30.8 % (34.1-44.9); HEMOGLOBIN 9.5 g/dL (11.2-15.7); MCHC 30.8 g/dl (32.2-35.5); MEAN CELL VOLUME 84.2 fl (79.4-94.8); MEAN PLT VOLUME 10.1 fl (9.4-12.3); MONOCYTE # 0.68 x10^3/uL (0.24-0.86); MONOCYTE % 8.8 % (4.7-12.5); PLATELET COUNT 174 x10^3/uL (182-369); RDW 15.6 % (12.4-16.6)
[2025-03-17] MEDS: ASPIRIN COATED 81 MG TABLET.EC PO SCH (09:29)
[2025-03-17] MEDS: LIDOCAINE 5% TOPICAL PATCH TP SCH (09:29)
[2025-03-17] MEDS: CEFTRIAXONE 1 GM in DEXTROSE 5%-WATER - 50 ML IVPB SCH (09:29)
[2025-03-17 09:44] LABS: CALCIUM 8.5 mg/dl (8.5-10.1); CREATININE 0.6 mg/dl (0.6-1.3); PHOSPHOROUS 3.4 (2.5-4.9); POTASSIUM 3.4 mmol/L (3.5-5.1)
[2025-03-17] MEDS ORDERED: ACETAMINOPHEN 325 MG TABLET (FP) PO PRN (20:35)
[2025-03-17] MEDS: LIDOCAINE PATCH REMOVAL MC SCH (21:22)
[2025-03-17] MEDS: ATORVASTATIN CA 10 MG TABLET (FP) PO SCH (21:22)
[2025-03-18 08:02] LABS: ABSOLUTE IMMATURE GRANULOCYTES 0.02 x10^3/uL (0.0-0.031); BASOPHILS # 0.05 x10^3/uL (0.01-0.08); EOSINOPHIL % 1.5 % (0.7-5.8); EOSINOPHILS # 0.11 x10^3/uL (0.04-0.36); HEMATOCRIT 29.7 % (34.1-44.9); HEMOGLOBIN 9.4 g/dL (11.2-15.7); MCHC 31.6 g/dl (32.2-35.5); MEAN CELL VOLUME 83.9 fl (79.4-94.8); MEAN PLT VOLUME 10.8 fl (9.4-12.3); MONOCYTE # 0.63 x10^3/uL (0.24-0.86); MONOCYTE % 8.8 % (4.7-12.5); PLATELET COUNT 188 x10^3/uL (182-369); RDW 15.5 % (12.4-16.6)
[2025-03-18] MEDS: PATIENT'S OWN MEDICATION (NON-FORMULARY) (Oxybutynin Chloride [Oxybutynin Chloride Er] 15 PO SCH (09:17)
[2025-03-18 09:28] LABS: ALBUMIN 3.2 g/dl (3.4-5.0); BILIRUBIN,TOTAL 0.3 mg/dl (0.2-1); CALCIUM 8.3 mg/dl (8.5-10.1); CREATININE 0.6 mg/dl (0.6-1.3); POTASSIUM 3.6 mmol/L (3.5-5.1); TOT PROT 5.7 g/dl (6.4-8.2)
[2025-03-18] MEDS: DOXYCYCLINE INJECTION 100 MG in DEXTROSE 5%-WATER 100 ML IVPB SCH (10:03)
[2025-03-18] MEDS: NYSTATIN POWDER 100,000 UNITS/GM - 15 GM TOPICAL POWDER TP SCH (12:45)
[2025-03-18] MEDS: PATIENT'S OWN MEDICATION (NON-FORMULARY) (Meloxicam [Meloxicam] 15 MG Tablet) PO SCH (16:52)
[2025-03-19 05:27] VITALS: RESP 18
[2025-03-19] MEDS: ACETAMINOPHEN 325 MG TABLET (FP) PO PRN (09:31)
[2025-03-19] MEDS: ENOXAPARIN NA (PORCINE) 40 MG/0.4 ML DISP.SYRIN SQ SCH (09:32)
[2025-03-19 10:15] VITALS: BP 116/70; PULSE 75; TEMP 98
== END 2025-03-19 10:18 | disposition home or self-care (01) | DRG 690 ==
LOC: FER 14:53 → FM/S 19:41 → OBSVTOIN 03-17 10:55
PROVIDERS: ATTEND Internal Medicine
DX: N39.0 Urinary tract infection, site not specified (principal); E03.9 Hypothyroidism, unspecified; E11.649 Type 2 diabetes mellitus with hypoglycemia without coma; I10 Essential (primary) hypertension; E78.5 Hyperlipidemia, unspecified; R19.7 Diarrhea, unspecified; E86.0 Dehydration; K21.9 Gastro-esophageal reflux disease without esophagitis; N32.81 Overactive bladder; M26.602 Left temporomandibular joint disorder, unspecified; R91.1 Solitary pulmonary nodule; M54.16 Radiculopathy, lumbar region; B95.2 Enterococcus as the cause of diseases classified elsewhere; B95.61 Methicillin susceptible Staphylococcus aureus infection as the cause of diseases classified elsewhere; Z87.11 Personal history of peptic ulcer disease
CPT/HCPCS: 0241U-QW; 36415; 70450-TC; 71045-TC-FY; 80048; 80053; 81003; 81015; 82962; 83735; 84100; 84439; 84443; 85025; 87086; 87186; 97116-GP; 97162-GP; 99285-25; G0378

== ENCOUNTER 2025-07-08 05:24 | Emergency (ER) | payer OTHER, BC ==
[2025-07-08 05:31] VITALS: BMI 23.9
[2025-07-08] MEDS ORDERED: ACETAMINOPHEN INJECTION 100 ML ONE (05:56)
[2025-07-08] MEDS: ACETAMINOPHEN 1000 MG/100 ML BAG IVPB ONE (05:58)
[2025-07-08] MEDS ORDERED: FAMOTIDINE 20 MG/50 ML IVPB 20 MG/50 ML MG IVPB ONE (06:03)
[2025-07-08] MEDS: FAMOTIDINE 20 MG/50 ML IVPB 20 MG/50 ML MG IVPB ONE (06:34)
[2025-07-08] MEDS: SODIUM CHLORIDE 500 ML IV STA (06:38)
[2025-07-08 06:51] LABS: ABSOLUTE IMMATURE GRANULOCYTES 0.07 x10^3/uL (0.0-0.031); BASOPHILS # 0.06 x10^3/uL (0.01-0.08); EOSINOPHIL % 0.8 % (0.7-5.8); EOSINOPHILS # 0.09 x10^3/uL (0.04-0.36); MCHC 27.6 g/dl (32.2-35.5); MEAN CELL VOLUME 81.3 fl (79.4-94.8); MEAN PLT VOLUME 10.4 fl (9.4-12.3); MONOCYTE # 0.76 x10^3/uL (0.24-0.86); MONOCYTE % 6.7 % (4.7-12.5); RDW 16.9 % (12.4-16.6)
[2025-07-08 07:41] VITALS: BP 118/88
[2025-07-08 08:22] LABS: ALK PHOS 85.0 U/L (40-150); CO2 22.0 mmol/L (21-32); CREATININE 0.98 mg/dL (0.55-1.3); GLUCOSE,RANDOM 161.0 mg/dL (74-106); SGOT/AST 18.0 U/L (5-34); SGPT/ALT 8.0 U/L (0-55); TOT PROT 6.3 g/dl (6.4-8.2)
[2025-07-08] MEDS: morphine CARPU-JECT 4 MG/1 ML DISP.SYRIN IVPUSH ONE (09:17)
[2025-07-08 09:21] VITALS: PULSE 85; RESP 20
[2025-07-08] MEDS ORDERED: MAG HYDROX/AL HYDROX/SIMETH 30 ML UNIT-DOSE CUP ONE (11:05)
[2025-07-08] MEDS: MAG HYDROX/AL HYDROX/SIMETH 30 ML UNIT-DOSE CUP PO ONE (11:06)
== END 2025-07-08 11:51 | disposition left against medical advice (07) ==
LOC: FER 05:24
PROC: 3E033GC Introduction of Other Therapeutic Substance into Peripheral Vein, Percutaneous Approach (ICD-10-PCS; principal; 2025-07-08)
PROC: 3E033NZ Introduction of Analgesics, Hypnotics, Sedatives into Peripheral Vein, Percutaneous Approach (ICD-10-PCS; 2025-07-08)
PROC: 3E033NZ Introduction of Analgesics, Hypnotics, Sedatives into Peripheral Vein, Percutaneous Approach (ICD-10-PCS; 2025-07-08)
PROC: 3E0337Z Introduction of Electrolytic and Water Balance Substance into Peripheral Vein, Percutaneous Approach (ICD-10-PCS; 2025-07-08)
DX: R07.2 Precordial pain (principal); R06.02 Shortness of breath; R11.0 Nausea; E86.0 Dehydration
CPT/HCPCS: 36415; 71045-TC-FY; 80053; 84484; 85025; 93005; 99285-25